=== PATIENT | female | born 1975 | race Caucasian/White ===

== ENCOUNTER → 2016-11-18 | Outpatient (CLI) | payer OTHER ==
[~2016-11-18] MED LIST: BACL10TA PO; CALC-20 PO; EFF75 PO; GABA800T PO; HYDR16TA PO; HYDR2TAB48 PO; LEVO25TA5 PO; LUBI8CAP4 PO; NALO1TAB2; PEDICHW50 PO; QUET1TAB37 PO; SENN8.6T7 PO; TRAZ50TA35 PO; ZNF/4 PO
--- NOTE | 2016-11-18 17:00 | DIAGNOSTIC IMAGING REPORT ---
SINGLE VIEW PELVIS; 3 VIEWS SACRUM AND SACROILIAC JOINTS CLINICAL HISTORY: Chronic pelvic pain. FINDINGS: An AP view of the pelvis with 3 views of the sacrum and sacroiliac joints are correlated with pelvic CT dated 01/13/2016. The skeletal structures are osteopenic. No acute fracture is identified. There is chronic posttraumatic deformity of the pubic ring bilaterally as well as the left sacrum. Degenerative change is noted in the sacroiliac joints, left greater than right. The hip joints appear maintained. The overlying soft tissues are within normal limits. There is a nonobstructed abdominal bowel gas pattern. There are numerous pelvic phlebolith. IMPRESSION: Chronic post traumatic deformity as above. No acute bony abnormality is seen. Electronically signed by: Milo Guillermo M.D. 11/18/2016 4:59 PM Dictated Date/Time: 11/18/2016 4:57 PM
--- NOTE | 2016-11-18 17:34 | DIAGNOSTIC IMAGING REPORT ---
CERVICAL SPINE 3 VIEWS CLINICAL HISTORY: Chronic neck pain. FINDINGS: AP, lateral, and odontoid views of the cervical spine are compared to study dated 06/27/[address] scan of the cervical spine dated 09/08/2015. The skeletal structures appear osteopenic. There is no radiographic evidence of fracture or subluxation. Vertebral body height and alignment are maintained throughout the cervical spine. Small anterior osteophytes are noted in the lower cervical region. The odontoid process and lateral masses appear intact on the open-mouth view. The spinolaminar line is preserved. The spinous processes are maintained. The disc spaces are preserved. A tiny posterior disc osteophyte complex is seen at C4-C5. Minimal facet arthropathy is noted. The visualized apical lung parenchyma appears clear. The prevertebral soft tissues are within normal limits. IMPRESSION: Minimal spondylotic change as above. No acute bony abnormality is identified involving the cervical spine. Dictated: 11/18/2016 4:55 PM Transcribed: 11/18/2016 5:33 PM Joaquim Electronically signed by: Milo Guillermo M.D. 11/18/2016 5:49 PM Dictated Date/Time: 11/18/2016 4:55 PM
--- NOTE | 2016-11-18 17:36 | DIAGNOSTIC IMAGING REPORT ---
LUMBAR SPINE 3 VIEWS CLINICAL HISTORY: Chronic low back pain. FINDINGS: AP, lateral, and coned-down views of the lumbar spine are compared to study dated 06/27/2011. The skeletal structures are osteopenic. There is no radiographic evidence of fracture or malalignment. Vertebral body height and alignment are maintained. There is straightening of the lumbar lordosis. The transverse and spinous processes appear intact. There is no evidence of spondylolysis. There is mild degenerative disc space narrowing with endplate sclerosis seen at L4-L5. Moderate degenerative disc space narrowing is seen at L4-L5. The remaining disc spaces appear preserved. Chronic posttraumatic deformity of the left sacrum is again seen. A hemitransitional left lumbosacral segment is suggested. An IVC filter is noted. Cholecystectomy clips are observed and there is suture material projecting over the stomach. No bowel obstruction is seen. There is moderate colonic fecal retention. IMPRESSION: 1. No acute bony abnormality seen involving the lumbosacral spine. There has been no significant change from 06/27/2011. 2. Osteopenia and mild degenerative change as above. 3. Chronic posttraumatic deformity is again noted in the left sacrum. Dictated: 11/18/2016 4:59 PM Transcribed: 11/18/2016 5:36 PM Joaquim Electronically signed by: Milo Guillermo M.D. 11/18/2016 5:49 PM Dictated Date/Time: 11/18/2016 4:59 PM
--- NOTE | 2016-11-18 19:00 | DIAGNOSTIC IMAGING REPORT ---
LEFT SHOULDER 3 VIEWS CLINICAL HISTORY: Chronic left shoulder pain. FINDINGS: 3 views of the left shoulder are obtained. No prior studies are available for comparison at the time of dictation. The skeletal structures are osteopenic. There is no radiographic evidence of fracture or dislocation. There is widening at the acromioclavicular joint with bony overgrowth. The glenohumeral articulation is preserved. The overlying soft tissues are within normal limits. There are healed left posterior rib fractures. The visualized left lung parenchyma appears clear. IMPRESSION: 1. No fracture or dislocation is seen. 2. There is widening at the clavicular joint with bony overgrowth. This could represent remote shoulder separation/trauma or could be related to previous surgery. Clinical correlation will be required. Electronically signed by: Milo Guillermo M.D. 11/18/2016 6:59 PM Dictated Date/Time: 11/18/2016 6:57 PM
--- NOTE | 2016-11-18 19:07 | DIAGNOSTIC IMAGING REPORT ---
THORACIC SPINE 3 VIEWS CLINICAL HISTORY: Chronic thoracic back pain. FINDINGS: AP, lateral, and swimmer's views of the thoracic spine are correlated with lateral chest radiograph dated 06/17/2015. The skeletal structures are osteopenic. There is no radiographic evidence of fracture or malalignment. Vertebral body height and alignment are maintained throughout the thoracic spine. Anterior osteophytes are seen throughout. There is mild multilevel degenerative disc space narrowing. The transverse processes and pedicles are grossly intact on the frontal view. Mild thoracic levocurvature is likely positional. There are healed rib fractures. The lung parenchyma is clear as imaged. Cholecystectomy clips and suture material are noted in the upper abdomen. IMPRESSION: 1. No acute bony abnormality is seen in the thoracic spine. 2. Osteopenia with degenerative and chronic posttraumatic changes as above. Electronically signed by: Milo Guillermo M.D. 11/18/2016 7:06 PM Dictated Date/Time: 11/18/2016 7:04 PM
== END | disposition home or self-care (01) ==
LOC: C.RAD 15:58
PROVIDERS: ATTEND Nurse Practitioner Family
DX: M25.512 Pain in left shoulder (principal); G89.4 Chronic pain syndrome; M54.2 Cervicalgia; M54.6 Pain in thoracic spine; M54.5 Low back pain

== ENCOUNTER → 2017-10-06 | Outpatient (CLI) | payer OTHER ==
[~2017-10-06] MED LIST changes: -NALO1TAB2; -ZNF/4 PO
--- NOTE | 2017-10-06 10:21 | DIAGNOSTIC IMAGING REPORT ---
LUMBAR SPINE W/O CONTRAST HISTORY: Pain. Neuropathy. LOWER BACK PAIN TECHNIQUE: Multiplanar multisequence MRI of the lumbar spine was performed without the use of contrast. COMPARISON: 05/02/2015 FINDINGS: For the purpose of the report the L5-S1 disc space will be located on axial image 23 of 25. Moderately progressive degenerative disc change L4-L5. L1-L2: No significant central canal or neural foraminal narrowing. L2-L3: No significant central canal or neural foraminal narrowing. L3-L4: No significant central canal or neural foraminal narrowing. L4-L5: Left posterior disc herniation creating significant deformity left anterior aspect of the thecal sac. Significant narrowing of the origin of the left neural foramina. Right neuroforamina is patent. Dimensions of the posterior disc herniation are 12 x 9 mm. L5-S1: No significant central canal or neural foraminal narrowing. IMPRESSION: 1. Left posterior disc herniation L4-L5 creating significant deformity of the left anterior aspect of the thecal sac and narrowing left neural foramina. 2. These findings are progressive compared to the prior exam. 3. Remainder of the study is negative. The above report was generated using voice recognition software. It may contain grammatical, syntax or spelling errors. Electronically signed by: Desean Carl M.D. 10/06/2017 10:20 AM Dictated Date/Time: 10/06/2017 10:15 AM
== END | disposition home or self-care (01) ==
LOC: C.MRI 09:31
PROVIDERS: ATTEND Pediatrics Sports Medicine
DX: M54.16 Radiculopathy, lumbar region (principal)

== ENCOUNTER → 2018-03-31 | Outpatient (CLI) | payer OTHER, BC ==
--- NOTE | 2018-03-31 14:00 | DIAGNOSTIC IMAGING REPORT ---
HEAD WITHOUT CONTRAST (CT) CLINICAL HISTORY: 42 years-old Female with L SHOULDER PAIN,IMPINGEMENT SYNDROME. Acute seizure with history of remote brain trauma TECHNIQUE: Multiple axial CT images of the head were obtained without contrast. A dose lowering technique was utilized adhering to the principles of ALARA. CT DOSE: 537.48 mGy.cm COMPARISON: Brain MRI and CT head 09/08/2015. FINDINGS: No acute intracranial hemorrhage, midline shift, intracranial mass, hydrocephalus, territorial ischemia or abnormal extra-axial collection. The calvarium is intact. Trace right mastoid effusion. Left mastoid air cells are clear. Paranasal sinuses are also generally clear. The soft tissues and orbits are unremarkable. IMPRESSION: No acute intracranial abnormality. The above report was generated using voice recognition software. It may contain grammatical, syntax or spelling errors. Electronically signed by: Gerard Young M.D. 03/31/2018 1:59 PM Dictated Date/Time: 03/31/2018 1:55 PM
== END | disposition home or self-care (01) ==
LOC: C.CTS 13:16
PROVIDERS: ATTEND Family Medicine
DX: R56.9 Unspecified convulsions (principal); M25.512 Pain in left shoulder; M75.42 Impingement syndrome of left shoulder

== ENCOUNTER 2020-01-29 01:38 | Inpatient (IN) ==
[2020-01-29] MEDS ORDERED: GI COCKTAIL ED USE PO ONE (02:02)
[2020-01-29] MEDS ORDERED: ONDANSETRON INJ 2 MG/ML 2 ML VIAL IV STA ×2 (02:02→03:36)
[2020-01-29] MEDS ORDERED: SODIUM CHLORIDE 0.9% 1000ML 1,000 ML IV ONE (02:02)
--- NOTE | 2020-01-29 02:08 | Emergency Department Note ---
Impression & Plan Partial obstruction of small intestine, Acute dehydration, Intractable vomiting ED Provider Note Name: GULSHAN YARBROUGH Age: 44 Sex: F Arrives Via: Walk-In Informant: Patient ED Provider: Cam Mobley MD Chief Complaint: Vomiting Impression: Partial Obstruction of Small intestine Acute Dehydration Intractable vomiting Medical Decision Makin yr old female with history of chronic pain issues along with previous gastric bypass almost 10 yrs ago arrives with persistent nausea/vomiting over the last week that initially was improving but has worsened over the last day. She is dehydrated on arrival though does not appear septic and abdomen is soft, non- tender and normal bowel sounds currently. Given Zofran without improvement, then phenergan and still nausea, thus further Zofran and Ativan. CT done given persistent vomiting and mildly elevated WBC (though likely dehydration related). CT revealed partial small bowel obstruction past previous anastamosis. She does not have a significantly dilated gastric pouch and I think holding off NG tube reasonable at this time. There could be element esophagitis thus tried GI cocktail though she couldn't really keep that down. Hospitalist on board and they will consult with gen surg later this morning. Prior Medical Record and Triage/Nursing Notes reviewed by Me Additional history obtained from chart Differentials:Gastroenteritis, food borne illness, infections, appendicitis, diverticulitis, inflammatory bowel disease, obstruction, GI bleed, biliary pa thology, volvulus, as well as other pathologies. Vital Signs: reviewed and remarkable for tachy Interventions: saline lock, nss bolus/gtt, zofran 4mg IV x 2, phenergan 25mg IV, Ativan 1mg IV Labs:Reviewed and remarkable for mild wbc elevation, chronic plt elevation Imaging:[facility] Radiologist interpretation reviewed by me: Concerning for partial SBO proximal small bowel. Consults:Dr Yusuf HERNANDEZ Hospitalist Plan: Disposition:Hospitalization. Condition: Good Blood pressure:Normal.No Referral necessary Prescriptions:none PDMP: n/a History of Present Illness:44 / F arrives for evaluation of vomiting. Patient vomiting for the previous week after eating fast food. She was starting to feel better yesterday and started vomiting again after dinner. Notes food is very salty to taste and she vomits any time she eats. Notes vague abdominal cramping without pain. Normal BM today. No fevers, chills, sob, cp, syncope, nor other symptoms. Denies covid risks other than going to [employer] for groceries. Tried Pepto without improvement. Denies syncope. States she recently has had some issues with trying to urinate and sometimes has to push to urinate, though denies urinary frequency nor burning. ROS: See above HPI for pertinent positives & negatives. A total of 10 systems reviewed and were otherwise negative. Past Medical History:Chronic Pain, Migraines, Depression Past Surgical History:Gastric Bypass Family History:non-contributory Social History:On disability, occasional tobacco use, no alcohol, no drugs Home Medications:See Below Allergies:Oxycodone, Morphine Vitals:Blood Pressure: 133/90, Pulse 110, RR 20, T 37C, O2 97% on RA Physical Exam: GENERAL: Patient is dehydration appearing and in mild distress. EYES: No scleral icterus, unremarkable pupils. ENT: Mucous membranes dry, no nasal congestion. NECK: No masses appreciated, nomeningismus, trachea is midline. RESPIRATORY: No dyspnea. Clear to auscultation and equal bilaterally. No wheeze, no rhonchi. CARDIOVASCULAR: Tachy.No murmurs, rubs, gallops appreciated. GASTROINTESTINAL: Abdomen soft, non-tender, no peritonitis.Bowel sounds positive.No masses appreciated. BACK: No midline tenderness, no CVA tenderness EXTREMITIES: Normal motion all extremities, no cyanosis, no edema. NEUROLOGIC: Alert and oriented, no acute motor or sensory deficits, no focal weakness, cranial nerves grossly intact. SKIN: No rash, no jaundice, no diaphoresis. PSYCH: Appropriate GCS: 15 ED Course: Times/Reassessments: gradually improving nausea Cam Mobley MD Past Med/Surg History Social History Feels Safe at Home: Yes Smoking Status: Current some day smoker Allergies Allergies Allergy/AdvReac Type Severity Reaction Status Date / Time oxycodone Allergy Intermediate HIVES Verified 01/29/20 03:08 Morphine Sulfate Allergy Unknown ITCHING Uncoded 01/29/20 03:08 (Concentrate) OxyCONTIN TB12 AdvReac Hypotension Uncoded 01/29/20 03:08 Home Meds Home Medications Medication Instructions Recorded Confirmed baclofen 20 mg tablet 20 mg PO TID #30 tab 04/05/19 01/29/20 gabapentin 800 mg tablet 800 mg PO QID tab 04/05/19 01/29/20 hydromorphone 2 mg tablet 1 mg PO Q8H PRN tab 04/05/19 01/29/20 lubiprostone 24 mcg capsule 48 mcg PO DAILY cap 04/05/19 01/29/20 multivitamin 1 tab PO DAILY 04/05/19 01/29/20 quetiapine 300 mg tablet 300 mg PO DAILY tab 04/05/19 01/29/20 cholecalciferol (vitamin D3) 2,000 mcg PO DAILY 01/29/20 01/29/20 [Vitamin D3] nortriptyline 50 mg PO BID 01/29/20 01/29/20 nortriptyline 100 mg PO HS 01/29/20 01/29/20 oxymorphone 7.5 mg PO Q8 01/29/20 01/29/20 Previous Rx's Medication Instructions Recorded lamotrigine 150 mg tablet 150 mg PO BID 30 Days #60 tab 10/23/19 sumatriptan succinate 100 mg tablet See Rx Instructions PO .COMPLEX #9 10/23/19 tab Results & Data (ED) Vital Signs Vital Signs - 24 hr 01/29/20 01:42 01/29/20 02:19 01/29/20 02:21 Temperature 37 C Temperature Source Oral Pulse Rate 110 H 81 81 Pulse Rate [Bilateral Apical] Pulse Rate from SpO2 Sensor 82 78 Respiratory Rate 20 19 15 Blood Pressure 133/90 143/79 H Blood Pressure [Left Arm] Blood Pressure Mean 104 87 Blood Pressure Mean [Left Arm] Blood Pressure Position Sitting Pulse Oximetry 97 98 99 Oxygen Delivery Method Room Air Sepsis Recent Fever Within 48 Hours No Sepsis Action Taken by Nursing No Action Required 01/29/20 03:29 01/29/20 04:04 Temperature Temperature Source Pulse Rate Pulse Rate [Bilateral Apical] 84 93 H Pulse Rate from SpO2 Sensor Respiratory Rate 18 18 Blood Pressure Blood Pressure [Left Arm] 132/78 152/90 H Blood Pressure Mean Blood Pressure Mean [Left Arm] 96 110 Blood Pressure Position Pulse Oximetry 99 98 Oxygen Delivery Method Room Air Room Air Sepsis Recent Fever Within 48 Hours Sepsis Action Taken by Nursing Laboratory Data Result diagrams: 01/29/20 01:55 01/29/20 01:55 Lab Results 01/29/20 01/29/20 Range/Units 01:55 01:55 WBC 13.44 H (4.8-10.8) K/uL RBC 5.53 H (4.2-5.4) M/uL Hgb 13.0 (12.0-16.0) g/dL Hct 41.1 (37-47) % MCV 74.3 L (80-100) fL MCH 23.5 L (25-34) pg MCHC 31.6 L (32-36) g/dL RDW Std Deviation 48.5 H (36.4-46.3) fL RDW Coeff of Jeffrey 17.8 H (11.5-14.5) % Plt Count 665 H (130-400) K/uL MPV 9.9 (7.4-10.4) fL Immature Gran % (Auto) 0.3 % Neut % (Auto) 60.1 % Lymph % (Auto) 29.5 % [place] % (Auto) 7.8 % Eos % (Auto) 1.9 % Baso % (Auto) 0.4 % Immature Gran # (Auto) 0.04 H (0.00-0.02) K/uL Neut # (Auto) 8.07 H (1.4-6.5) K/uL Lymph # (Auto) 3.96 H (1.2-3.4) K/uL [place] # (Auto) 1.05 H (0.11-0.59) K/uL Eos # (Auto) 0.26 (0-0.5) K/uL Baso # (Auto) 0.06 (0-0.2) K/uL Sodium 142 (136-145) mmol/L Potassium 3.4 L (3.5-5.1) mmol/L Chloride 106 (98-107) mmol/L Carbon Dioxide 30 (21-32) mmol/L Anion Gap 6.0 (3-11) BUN 11 (7-18) mg/dl Creatinine 0.91 (0.6-1.2) mg/dl Est Cr Clr Drug Dosing 79.9 ml/min Est GFR ( Amer) 89.6 Est GFR (Non-Af Amer) 77.3 BUN/Creatinine Ratio 12.3 (10-20) Glucose 132 H (70-99) mg/dl Calcium 9.2 (8.5-10.1) mg/dl Total Bilirubin 0.4 (0.2-1) mg/dl Direct Bilirubin 0.1 (0-0.2) mg/dl AST 17 (15-37) U/L ALT 29 (12-78) U/L Alkaline Phosphatase 115 (45-117) U/L Total Protein 8.2 (6.4-8.2) gm/dl Albumin 4.2 (3.4-5.0) gm/dl Lipase 104 (73-393) U/L Administered Medications Sodium Chloride (Nss 1000ml) 1,000 mls @ 125 mls/hr IV .Q8H CAESAR Stop: 02/28/20 03:59 Last Admin: 01/29/20 03:54 Dose: 125 mls/hr Documented by: [id number] Ioversol (Optiray 320 100ml) 100 ml IV ONCE PRN PRN Reason: Interaction Checking Stop: 02/02/20 03:19 Last Admin: 01/29/20 03:21 Dose: 93 ml Documented by: [id number] Discontinued Medications Al Hydrox/Mg Hydrox/Simethicone () 1 dose PO ONE ONE Stop: 01/29/20 02:03 Last Admin: 01/29/20 02:09 Dose: 1 dose Documented by: [id number] Sodium Chloride (Nss 1000ml) 1,000 mls @ 999 mls/hr IV .Q1H1M ONE Stop: 01/29/20 03:02 Last Infusion: 01/29/20 03:17 Dose: 0 mls/hr Documented by: [id number] Admin: 01/29/20 02:08 Dose: 999 mls/hr Documented by: [id number] Promethazine HCl (Phenergan) 25 mg in 51 mls @ 204 mls/hr IV NOW STA Stop: 01/29/20 03:02 Last Infusion: 01/29/20 03:17 Dose: 0 mls/hr Documented by: [id number] Admin: 01/29/20 02:57 Dose: 204 mls/hr Documented by: [id number] Lorazepam (Ativan) 1 mg in 2 mls @ 2 mls/min IV NOW STA Stop: 01/29/20 03:37 Last Admin: 01/29/20 03:42 Dose: 2 mls/min Documented by: [id number] Ondansetron HCl (Zofran) 4 mg IV NOW STA Stop: 01/29/20 02:03 Last Admin: 01/29/20 02:08 Dose: 4 mg Documented by: [id number] Ondansetron HCl (Zofran) 4 mg IV NOW STA Stop: 01/29/20 03:37 Last Admin: 01/29/20 03:42 Dose: 4 mg Documented by: [id number] Discharge Plan Visit Data Chief Complaint: Vomiting Stated Complaint: SICK, VOMITTING, HAVEN'T ATE ED Provider: Cam Mobley Discharge Problem: Partial obstruction of small intestine, Acute dehydration, Intractable vomiting Forms Stand Alone Forms: [facility] Prescriptions Prescriptions: No Action Amitiza 24 mcg capsule 48 mcg PO DAILY RF: 0 baclofen 20 mg tablet 20 mg PO TID Qty: 30 RF: 0 gabapentin 800 mg tablet 800 mg PO QID RF: 0 hydromorphone 2 mg tablet 1 mg PO Q8H PRN (Reason: Pain) RF: 0 quetiapine 300 mg tablet 300 mg PO DAILY RF: 0 multivitamin [Multiple Vitamins] tablet 1 tab PO DAILY RF: 0 lamotrigine 150 mg tablet 150 mg PO BID 30 Days Qty: 60 RF: 5 sumatriptan succinate 100 mg tablet See Rx Instructions PO .COMPLEX Qty: 9 RF: 5 cholecalciferol (vitamin D3) [Vitamin D3] 50 mcg (2,000 unit) tablet 2,000 mcg PO DAILY RF: 0 nortriptyline 25 mg capsule 100 mg PO HS RF: 0 nortriptyline 25 mg capsule 50 mg PO BID RF: 0 oxymorphone 5 mg tablet 7.5 mg PO Q8 RF: 0 Referrals Referrals: Kirk Santiago [Primary Care Provider] - Discharge Problem: Intractable vomiting Qualifiers: Vomiting type: unspecified Nausea presence: with nausea Qualified Code(s): R11.2 - Nausea with vomiting, unspecified
[2020-01-29 02:15] LABS: Basophils # (auto) 0.06 K/uL (0-0.2); Basophils % (auto) 0.4 %; Eosinophils # (auto) 0.26 K/uL (0-0.5); Eosinophils % (auto) 1.9 %; Hematocrit (blood only) 41.1 % (37-47); Immature Granulocytes # (auto) 0.04 K/uL (0.00-0.02); Immature Granulocytes % (auto) 0.3 %; Lymphocytes # (auto) 3.96 K/uL (1.2-3.4); Lymphocytes % (auto) 29.5 %; Mean Corpuscular Hemoglobin 23.5 pg (25-34); Mean Corpuscular Hgb Conc 31.6 g/dL (32-36); Mean Corpuscular Volume 74.3 fL (80-100); Mean Platelet Volume 9.9 fL (7.4-10.4); Monocytes # (auto) 1.05 K/uL (0.11-0.59); Monocytes % (auto) 7.8 %; Neutrophils # (auto) 8.07 K/uL (1.4-6.5); Neutrophils % (auto) 60.1 %; Platelet Count 665 K/uL (130-400); RDW Coefficient of Variation 17.8 % (11.5-14.5); RDW Standard Deviation 48.5 fL (36.4-46.3); Red Blood Count 5.53 M/uL (4.2-5.4); White Blood Count 13.44 K/uL (4.8-10.8)
[2020-01-29 02:24] LABS: Albumin Level 4.2 gm/dl (3.4-5.0); BUN Creatinine Ratio 12.3 (10-20); Bilirubin Direct 0.1 mg/dl (0-0.2); Calcium 9.2 mg/dl (8.5-10.1); Creatinine Clr Calc Pharmacy 79.9 ml/min; Est GFR (African American) 89.6; Est GFR (Non-African American) 77.3; Potassium 3.4 mmol/L (3.5-5.1)
[2020-01-29 02:27] LABS: Bilirubin,Total 0.4 mg/dl (0.2-1); Total Protein 8.2 gm/dl (6.4-8.2)
[2020-01-29] MEDS ORDERED: PROMETHAZINE 25 MG/51 ML BAG IV STA (02:48)
[2020-01-29] MEDS ORDERED: IOVERSOL 100ml IV PRN (03:20)
[2020-01-29] MEDS ORDERED: LORazepam 1 MG/2 ML VIAL IV STA (03:36)
[2020-01-29] MEDS ORDERED: SODIUM CHLORIDE 0.9% 1000ML 1,000 ML IV SCH (04:00)
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
[2020-01-29] MEDS ORDERED: FAMOTIDINE 20MG/5ML IV PUSH IV STA (05:53)
[2020-01-29] MEDS ORDERED: HYDROmorphone INJ 0.5 MG/0.5 ML SYR IV PRN (05:53)
[2020-01-29] MEDS ORDERED: FAMOTIDINE 20 MG in SYRINGE 3 ML IV STA (06:01)
[2020-01-29] MEDS: POTASSIUM CHLORIDE / WTR 10 MEQ/100 ML PLCT IV SCH ×3 (06:18→08:58)
[2020-01-29] MEDS ORDERED: POTASSIUM CHLORIDE 30 MEQ in SODIUM CHLORIDE 0.9% 1000ML 1,000 ML IV SCH (06:30)
--- NOTE | 2020-01-29 07:05 | Billing Data ---
Date of Service January 29, 2020 Coding Level of Care Code 67404 OBS Care - Level 3
--- NOTE | 2020-01-29 07:18 | XRay Report ---
XR KUB/Abdomen 1 view CLINICAL HISTORY: NG placement tube position COMPARISON STUDY: No previous studies for comparison. FINDINGS: Nasogastric tube coiled within the gastric fundus. Nonobstructive bowel pattern. Inferior v gita cava filter is present. IMPRESSION: Nasogastric tube coiled within the gastric fundus. ACT 112: Negative or not required by law. The above report was generated using voice recognition software. It may contain grammatical, syntax or spelling errors. Electronically signed by: Desean Carl M.D. 01/29/2020 7:16 AM
--- NOTE | 2020-01-29 07:35 | CT Scan Report ---
CT SCAN OF THE ABDOMEN AND PELVIS WITH IV CONTRAST CLINICAL HISTORY: Intractable vomiting. Leukocytosis. COMPARISON STUDY: Abdominal CT dated 06/19/2019. TECHNIQUE: Following the IV administration of 93 cc of Optiray 320, CT scan of the abdomen and pelvi s is performed from the lung bases to the proximal femora. Images are reviewed in the axial, sagittal , and coronal planes. IV contrast was administered without complication. A dose lowering technique wa s utilized adhering to the principles of ALARA. CT DOSE: 528.79 mGy.cm FINDINGS: Lung bases: The heart is normal in size and without pericardial effusion. Trace chronic pleural effus ion is noted at the left lung with associated left basilar scarring/atelectasis. The right lung base is clear. Liver: The contrast-enhanced liver is normal in size, contour, and attenuation. There is no intrahepa tic biliary ductal dilatation. The hepatic veins and portal veins are patent. Gallbladder: Surgically absent noting clips in the gallbladder fossa. Spleen: A normal spleen is not identified. Numerous round soft tissue nodules in the left upper quadr ant likely represent splenules. Pancreas: Moderately atrophic and grossly unremarkable. Adrenal glands: Unremarkable. Kidneys: The contrast enhanced kidneys are normal in size and without hydronephrosis. The kidneys enh ance symmetrically. A circumaortic left renal vein is incidentally noted. Abdominal vasculature: The abdominal aorta is normal in course and caliber. An infrarenal IVC filter is in place. Stomach and bowel: There is a small hiatal hernia. Postoperative changes consistent with a history of Loreta-en-Y gastric bypass surgery. There is significant distention of the proximal stomach above the gastrojejunostomy. This suggests gastric outlet obstruction. The pancreatic biliary loop is decompres sed/normal in caliber. Mild focal distention at the level of the distal anastomosis is likely related to denervation. The small bowel loops and colon are otherwise normal in caliber. The appendix is wel l-visualized and normal. Peritoneum: There is no intraperitoneal free air or abdominal ascites. There is evidence of previous ventral hernia repair, with laxity of the ventral abdominal wall and protrusion of abdominal contents . Lymphadenopathy: None. Pelvic viscera: A neurostimulator device is present in the right gluteal soft tissues. Leads extend i n the central spinal canal into the thoracic region. The bladder is decompressed and grossly unremark able. The uterus and adnexa are normal as visualized noting bilateral ovarian follicles. Skeletal structures: No lytic or blastic lesions are seen. There are numerous healed left-sided rib f ractures. There are extensive healed bilateral pelvic fractures with associated pelvic deformity. IMPRESSION: 1. Postoperative change is consistent with a history of Loreta-en-Y gastric bypass surgery. 2. There is significant distention of the proximal gastric pouch above the gastrojejunostomy. This gonzales ggests gastric outlet obstruction, and could be related to obstructing food bolus or less likely stri cture. This represents a change from previous and follow-up of the patient's bariatric surgeon is rec ommended. 3. The bowel loops are otherwise normal in caliber. 4. Chronic posttraumatic findings as above. 5. Laxity of the ventral abdominal wall with protrusion of bowel loops is similar to previous. 6. Additional findings as above. ACT 112: Negative or not required by law. Electronically signed by: Milo Guillermo M.D. 01/29/2020 7:34 AM
[2020-01-29] MEDS: LUBIPROSTONE 8 MCG CAP PO SCH (08:12)
[2020-01-29] MEDS: BACLOFEN 20 MG TAB PO SCH ×3 (08:12→21:47)
[2020-01-29] MEDS: GABAPENTIN 800 MG TAB PO SCH ×4 (08:13→21:47)
[2020-01-29] MEDS: NORTRIPTYLINE HCL 25 MG CAP PO SCH ×3 (08:13→21:47)
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
[2020-01-29] MEDS: HEPARIN SOD 5,000 UNIT/0.5 ML VIAL SQ SCH ×2 (08:59→21:17)
[2020-01-29] MEDS ORDERED: QUETIAPINE FUMARATE 300 MG TABLET PO SCH (09:00)
[2020-01-29] MEDS: FAMOTIDINE 20 MG in SYRINGE 3 ML IV SCH ×2 (09:06→21:12)
[2020-01-29 10:06] LABS: Hematocrit (blood only) 35.1 % (37-47); Hemoglobin 11.2 g/dL (12.0-16.0); Mean Corpuscular Hemoglobin 24.1 pg (25-34); Mean Corpuscular Hgb Conc 31.9 g/dL (32-36); Mean Corpuscular Volume 75.5 fL (80-100); Mean Platelet Volume 9.6 fL (7.4-10.4); Platelet Count 556 K/uL (130-400); RDW Coefficient of Variation 18.1 % (11.5-14.5); RDW Standard Deviation 49.8 fL (36.4-46.3); Red Blood Count 4.65 M/uL (4.2-5.4); White Blood Count 13.52 K/uL (4.8-10.8)
[2020-01-29] MEDS: HYDROmorphone INJ 1 MG/ML SYRINGE IV PRN ×3 (10:41→19:19)
[2020-01-29 10:43] LABS: Basophils # (auto) 0.11 K/uL (0-0.2); Basophils % (auto) 0.8 %; Eosinophils # (auto) 0.22 K/uL (0-0.5); Eosinophils % (auto) 1.6 %; Immature Granulocytes # (auto) 0.03 K/uL (0.00-0.02); Immature Granulocytes % (auto) 0.2 %; Lymphocytes # (auto) 5.14 K/uL (1.2-3.4); Microcytosis Present; Monocytes # (auto) 1.12 K/uL (0.11-0.59); Monocytes % (auto) 8.3 %; Neutrophils % (auto) 51.1 %; Ovalocytes 1+; Target Cells 1+
[2020-01-29 10:47] LABS: BUN Creatinine Ratio 14.6 (10-20); Calcium 8.8 mg/dl (8.5-10.1); Creatinine Clr Calc Pharmacy 96.8 ml/min; Est GFR (African American) 109.6; Est GFR (Non-African American) 94.6; Potassium 4.5 mmol/L (3.5-5.1)
[2020-01-29 11:56] LABS: Appearance Urine Clear (Clear); Bilirubin Urine Negative (Negative); Blood Urine Negative (Negative); Color Urine Yellow; Glucose Urine UA Negative (Negative); Ketones Urine 1+ (Negative); Leukocyte Esterase Urine Negative (Negative); Nitrite Urine Negative (Negative); Protein Urine Negative (Negative); Specific Gravity Urine > 1.045 (1.000-1.030); Urobilinogen Urine Negative (Negative); pH Urine >= 9.0 (4.5-7.5)
[2020-01-29 12:03] LABS: Pregnancy Test, Urine Negative (Negative)
[2020-01-29] MEDS: ONDANSETRON INJ 2 MG/ML 2 ML VIAL IV PRN ×2 (13:10→21:12)
[2020-01-29] MEDS: PROCHLORPERAZINE 5 MG in SYRINGE 4 ML IV PRN (14:44)
[2020-01-29] MEDS ORDERED: POTASSIUM CHLORIDE 20 MEQ in SODIUM CHLORIDE 0.9% 1000ML 1,000 ML IV SCH (16:30)
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
[2020-01-29] MEDS: NSS + 20MEQ KCL 20 MEQ/1,000 ML BAG IV SCH (17:02)
[2020-01-29 18:17] LABS: Gastric Occult Blood Negative (Negative)
[2020-01-29] MEDS ORDERED: Nursing to Pharmacy Communication ONE (19:30)
[2020-01-29] MEDS: QUETIAPINE FUMARATE 300 MG TABLET PO SCH (21:47)
[2020-01-30] MEDS: HYDROmorphone INJ 1 MG/ML SYRINGE IV PRN ×5 (00:08→19:53)
[2020-01-30] MEDS: NSS + 20MEQ KCL 20 MEQ/1,000 ML BAG IV SCH ×3 (02:52→23:30)
[2020-01-30 06:54] LABS: Basophils # (auto) 0.06 K/uL (0-0.2); Basophils % (auto) 0.4 %; Eosinophils # (auto) 0.26 K/uL (0-0.5); Eosinophils % (auto) 1.9 %; Hemoglobin 10.2 g/dL (12.0-16.0); Immature Granulocytes # (auto) 0.02 K/uL (0.00-0.02); Immature Granulocytes % (auto) 0.1 %; Lymphocytes # (auto) 4.03 K/uL (1.2-3.4); Lymphocytes % (auto) 30.2 %; Mean Corpuscular Hemoglobin 23.4 pg (25-34); Mean Corpuscular Hgb Conc 30.9 g/dL (32-36); Mean Corpuscular Volume 75.9 fL (80-100); Mean Platelet Volume 9.6 fL (7.4-10.4); Monocytes # (auto) 1.11 K/uL (0.11-0.59); Monocytes % (auto) 8.3 %; Neutrophils # (auto) 7.88 K/uL (1.4-6.5); Neutrophils % (auto) 59.1 %; Platelet Count 518 K/uL (130-400); RDW Standard Deviation 50.7 fL (36.4-46.3); Red Blood Count 4.35 M/uL (4.2-5.4); White Blood Count 13.36 K/uL (4.8-10.8)
[2020-01-30 07:29] LABS: BUN Creatinine Ratio 14.9 (10-20); Calcium 8.1 mg/dl (8.5-10.1); Creatinine Clr Calc Pharmacy 138.1 ml/min; Est GFR (Non-African American) 115.6; Potassium 4.1 mmol/L (3.5-5.1)
[2020-01-30 07:34] LABS: Ferritin 7.2 ng/ml (8-388)
[2020-01-30] MEDS ORDERED: KETOROLAC TROMETHAMINE 15 MG/ML VIAL IV PRN (08:13)
[2020-01-30 08:27] LABS: Albumin Level 3.1 gm/dl (3.4-5.0); Bilirubin Direct 0.1 mg/dl (0-0.2); Bilirubin,Total 0.5 mg/dl (0.2-1); Total Protein 6.2 gm/dl (6.4-8.2)
[2020-01-30] MEDS: HEPARIN SOD 5,000 UNIT/0.5 ML VIAL SQ SCH ×2 (08:50→22:05)
[2020-01-30] MEDS ORDERED: COUGH DROP (SUGAR FREE) LOZ 24 LOZ/1 BOX BUCCAL PRN (08:59)
[2020-01-30] MEDS: BACLOFEN 20 MG TAB PO SCH ×3 (09:01→21:57)
[2020-01-30] MEDS: GABAPENTIN 800 MG TAB PO SCH ×4 (09:01→21:57)
[2020-01-30] MEDS: NORTRIPTYLINE HCL 25 MG CAP PO SCH ×3 (09:01→21:57)
[2020-01-30] MEDS: LUBIPROSTONE 8 MCG CAP PO SCH (09:01)
--- NOTE | 2020-01-30 09:06 | History & Physical Bridge Note ---
Date of Service January 30, 2020 History & Physical Bridge Note I have examined the patient, reviewed the History & Physical and in the interval since the performance of the History & Physical I have noted the following changes of clinical significance: no changes noted
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
[2020-01-30] MEDS ORDERED: fentaNYL citrate 100 MCG/2 ML VIAL ONE (09:46)
[2020-01-30] MEDS ORDERED: MIDAZOLAM HCL 1 MG/ML 2ML VIAL ONE (09:46)
[2020-01-30] MEDS ORDERED: LIDOCAINE HCL 2% 2 ML VIAL/AMP(20MG/ML) INFIL ONE (09:46)
[2020-01-30] MEDS ORDERED: PROPOFOL IV EMULSION 10 MG/ML 20 ML VIAL IV ONE (09:46)
[2020-01-30] MEDS: FAMOTIDINE 20 MG in SYRINGE 3 ML IV SCH ×2 (10:07→21:58)
[2020-01-30] MEDS ORDERED: LABETALOL HCL IV 5 MG/ML 20ML IV PRN (10:32)
[2020-01-30] MEDS ORDERED: ONDANSETRON INJ 2 MG/ML 2 ML VIAL IV PRN (10:32)
[2020-01-30] MEDS ORDERED: fentaNYL citrate 100 MCG/2 ML VIAL IV PRN (10:32)
[2020-01-30] MEDS ORDERED: ATROPINE SULFATE 0.1 MG/ML 10ML SYR IV PRN (10:32)
--- NOTE | 2020-01-30 10:54 | Operative Report ---
PG Post Operative Report Pre & Post Diagnosis Operation Date: 01/30/20 08:20 Pre-Op Diagnosis: Gastric Stricture Post-Op Diagnosis: Esophageal Candidiasis I identified the patient and participated in the time-out.: Yes Procedure Operation Date: 01/30/20 08:20 Actual Procedures p Esophagogastroduodenoscopy(Not Applicable) with esophageal brushings- Mauro Downing DO Surgeon Mauro Downing DO Continuous Drier Operator n/a Estimated Blood Loss 0 Findings Consistent with Post-Op Diagnosis Specimens esophageal brushings Description of Procedure After informed consent was obtained the patient was taken to the operating room and placed in a left lateral Fowlers position. After IV sedation was administered and titrated to effect a bite-block was placed. The gastroscope was inserted in the oropharynx and into the proximal esophagus without difficulty. Keeping the lumen in view at all times the scope was passed down the esophagus. It was passed into the patient's gastric pouch and through her gastrojejunal anastomosis without difficulty. The anastomosis itself was pristine with no ulcer or stricture. The [place] limb was normal as well at least for the first 20-25 cm. Through the majority of the esophagus and proximal stomach there was florid leukoplakia consistent with esophageal candidiasis. I suspect this to be the source of her symptoms. Brushings were obtained and sent to pathology. She will be placed on antifungals empirically until we get the results back. No other gross abnormalities were identified. Gastric pouch was decompressed and scope was withdrawn. Patient tolerated the procedure well. I attest to the content of the Intraoperative Record and any orders documented therein. Any exceptions are noted below.
--- NOTE | 2020-01-30 12:22 | Anesthesiology Progress Note ---
Date of Service January 30, 2020 Anesthesia Post Procedure Vital Signs Vital Signs: Temp Pulse Pulse Pulse Resp BP Pulse Ox 01/30/20 12:00 37.1 C 90 16 128/86 95 01/30/20 11:30 37.2 C 97 H 17 118/75 94 01/30/20 11:10 36.8 C 99 H 14 118/81 92 01/30/20 11:00 99 H 15 123/74 93 01/30/20 10:54 37.0 C 100 H 18 121/77 99 01/30/20 10:22 37.3 C 100 H 18 149/83 H 95 01/30/20 07:01 36.9 C 98 H 16 136/77 93 01/29/20 23:37 37.0 C 95 H 16 136/82 94 01/29/20 15:14 37.2 C 99 H 17 125/79 92 Pain Intensity Abdomen: Pain Intensity: 5 Left Back: Pain Intensity: 7 Transfer of Care Handoff Completed per policy Notes Mental Status: alert / awake / arousable Patient Amnestic to Procedure: Yes Nausea / Vomiting: adequately controlled Pain: adequately controlled Airway Patency, RR, SpO2: stable & adequate BP & HR: stable & adequate Hydration State: stable & adequate Anesthetic Complications: no major complications apparent
[2020-01-30] MEDS ORDERED: FLUCONAZOLE 200 MG/100 ML BAG IV ONE (12:30)
[2020-01-30] MEDS ORDERED: IRON SUCROSE 200 MG in 0.9 % SODIUM CHLORIDE 100 ML IV ONE (14:30)
[2020-01-30] MEDS: NYSTATIN SUSP 500,000 U/5 ML UDC PO SCH ×3 (15:28→21:55)
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
[2020-01-30] MEDS: ONDANSETRON INJ 2 MG/ML 2 ML VIAL IV PRN (19:53)
[2020-01-30] MEDS: QUETIAPINE FUMARATE 300 MG TABLET PO SCH (21:57)
[2020-01-31] MEDS: HYDROmorphone INJ 1 MG/ML SYRINGE IV PRN ×2 (03:14→07:24)
[2020-01-31 05:54] LABS: Basophils # (auto) 0.05 K/uL (0-0.2); Basophils % (auto) 0.6 %; Eosinophils # (auto) 0.48 K/uL (0-0.5); Eosinophils % (auto) 5.3 %; Hematocrit (blood only) 30.2 % (37-47); Hemoglobin 9.4 g/dL (12.0-16.0); Immature Granulocytes # (auto) 0.02 K/uL (0.00-0.02); Immature Granulocytes % (auto) 0.2 %; Lymphocytes # (auto) 3.06 K/uL (1.2-3.4); Mean Corpuscular Hemoglobin 23.6 pg (25-34); Mean Corpuscular Hgb Conc 31.1 g/dL (32-36); Mean Corpuscular Volume 75.7 fL (80-100); Mean Platelet Volume 10.2 fL (7.4-10.4); Monocytes # (auto) 0.66 K/uL (0.11-0.59); Monocytes % (auto) 7.3 %; Neutrophils # (auto) 4.72 K/uL (1.4-6.5); Neutrophils % (auto) 52.6 %; Platelet Count 479 K/uL (130-400); RDW Coefficient of Variation 17.9 % (11.5-14.5); RDW Standard Deviation 49.9 fL (36.4-46.3); Red Blood Count 3.99 M/uL (4.2-5.4); White Blood Count 8.99 K/uL (4.8-10.8)
[2020-01-31 06:42] LABS: Albumin Globulin Ratio 0.9 (0.9-2); Albumin Level 2.7 gm/dl (3.4-5.0); BUN Creatinine Ratio 6.5 (10-20); Bilirubin,Total 0.2 mg/dl (0.2-1); Calcium 7.9 mg/dl (8.5-10.1); Creatinine Clr Calc Pharmacy 158.6 ml/min; Est GFR (African American) 140.2; Globulin 2.9 gm/dl (2.5-4.0); Potassium 3.9 mmol/L (3.5-5.1); Total Protein 5.6 gm/dl (6.4-8.2)
[2020-01-31] MEDS: NYSTATIN SUSP 500,000 U/5 ML UDC PO SCH (09:02)
[2020-01-31] MEDS: GABAPENTIN 800 MG TAB PO SCH ×4 (09:02→20:47)
[2020-01-31] MEDS: lamoTRIgine 100 MG TAB PO SCH ×2 (09:03→20:49)
[2020-01-31] MEDS: BACLOFEN 20 MG TAB PO SCH ×3 (09:03→20:47)
[2020-01-31] MEDS: NORTRIPTYLINE HCL 25 MG CAP PO SCH ×3 (09:05→20:48)
[2020-01-31] MEDS: LUBIPROSTONE 8 MCG CAP PO SCH (09:06)
[2020-01-31] MEDS: HEPARIN SOD 5,000 UNIT/0.5 ML VIAL SQ SCH ×2 (09:07→20:47)
[2020-01-31] MEDS: FAMOTIDINE 20 MG in SYRINGE 3 ML IV SCH (09:11)
[2020-01-31] MEDS: NSS + 20MEQ KCL 20 MEQ/1,000 ML BAG IV SCH ×3 (09:45→23:35)
[2020-01-31 09:56] LABS: Reticulocytes # 0.04 10^6/uL (0.02-0.10)
[2020-01-31] MEDS ORDERED: HYDROmorphone HCL 2 MG TAB PO PRN ×2 (10:01→12:21)
[2020-01-31] MEDS ORDERED: SUMAtriptan succinate 100 MG TAB PO PRN (10:15)
--- NOTE | 2020-01-31 10:27 | Surgery Progress Note ---
Date of Service January 31, 2020 Assessment & Plan (1) Esophageal candidiasis: clinically improving will advance diet will need diflucan at home for approx 10 days will sign off/call if needed. no surgical issues or need for f/u Subjective pt seen. doing ok. no n/v. eliza liquids. Physical Exam Physical Exam: alert. nad abd: soft. nt. nd. Results & Data Vital Signs (Past 12 Hours) Vital Signs Temp Pulse Resp BP Pulse Ox 01/31/20 07:00 36.9 C 82 16 122/82 95 01/30/20 23:27 37.1 C 94 H 17 119/76 90 PG Care Time/CCT Total # of Minutes Spent Total Time Spent with Patient: Total time spent is greater than 50% in coordination of care (as documented) at patient's floor/unit and/or counseling patient: Coding Level of Care Code 09597 Subseq Hosp Care Lvl 2 Diagnoses Esophageal candidiasis B37.81
[2020-01-31] MEDS ORDERED: IRON SUCROSE 200 MG in 0.9 % SODIUM CHLORIDE 100 ML IV ONE (10:30)
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
[2020-01-31] MEDS: FLUCONAZOLE 100 MG/50 ML BAG IV SCH (12:22)
[2020-01-31] MEDS ORDERED: NYSTATIN SUSP 500,000 U/5 ML UDC PO PRN (13:01)
[2020-01-31 13:26] LABS: Magnesium 2.1 mg/dl (1.8-2.4)
[2020-01-31] MEDS ORDERED: OXYMORPHONE HCL 5 MG PO PRN (13:44)
[2020-01-31] MEDS: ONDANSETRON INJ 2 MG/ML 2 ML VIAL IV PRN (14:38)
--- NOTE | 2020-01-31 14:44 | Electrocardiogram Report ---
Test Reason : Blood Pressure : / mmHG Vent. Rate : 089 BPM Atrial Rate : 089 BPM P-R Int : 180 ms QRS Dur : 086 ms QT Int : 372 ms P-R-T Axes : 055 -07 046 degrees QTc Int : 452 ms Normal sinus rhythm Normal ECG When compared with ECG of 12-JAN-2016 20:11, No significant change was found Confirmed by Jordi Borrego ([id number]) on 01/31/2020 2:43:35 PM Referred By: REFERRED SELF Confirmed By:Jordi Borrego
[2020-01-31] MEDS ORDERED: [UNRECOGNIZED DRUG - REMARK] PRN ×2 (15:20→15:33)
--- NOTE | 2020-01-31 16:15 | XRay Report ---
XR KUB/Abdomen 1 view CLINICAL HISTORY: n/v dyspnea COMPARISON STUDY: No previous studies for comparison. FINDINGS: Nonobstructive bowel pattern. Old healed fractures of the pubic ring. Stimulator pack overl michell the right flank. IMPRESSION: No acute process. Chronic and pre-existing change. ACT 112: Negative or not required by law. The above report was generated using voice recognition software. It may contain grammatical, syntax or spelling errors. Electronically signed by: Desean Carl M.D. 01/31/2020 4:14 PM
[2020-01-31] MEDS ORDERED: PATIENT'S OWN CONTROLLED MED PO PRN (16:20)
[2020-01-31] MEDS: OXYMORPHONE HCL 5 MG PO PRN (16:24)
[2020-01-31] MEDS: PROCHLORPERAZINE 5 MG in SYRINGE 4 ML IV PRN (16:28)
[2020-01-31] MEDS: PANTOprazole 40 MG TAB PO SCH (19:09)
[2020-01-31] MEDS: QUETIAPINE FUMARATE 300 MG TABLET PO SCH (20:47)
[2020-02-01 05:52] LABS: Hematocrit (blood only) 30.3 % (37-47); Hemoglobin 9.4 g/dL (12.0-16.0); Mean Corpuscular Hemoglobin 23.9 pg (25-34); Mean Corpuscular Volume 76.9 fL (80-100); Mean Platelet Volume 10.6 fL (7.4-10.4); Nucleated RBC # (auto) 0.03 K/uL (0-0); Nucleated RBC % (auto) 0.3 %; Platelet Count 478 K/uL (130-400); RDW Coefficient of Variation 18.2 % (11.5-14.5); RDW Standard Deviation 51.3 fL (36.4-46.3); Red Blood Count 3.94 M/uL (4.2-5.4); White Blood Count 11.31 K/uL (4.8-10.8)
[2020-02-01 06:28] LABS: BUN Creatinine Ratio 4.6 (10-20); Calcium 8.3 mg/dl (8.5-10.1); Creatinine Clr Calc Pharmacy 143.4 ml/min; Est GFR (African American) 135.6; Potassium 3.8 mmol/L (3.5-5.1)
[2020-02-01] MEDS: OXYMORPHONE HCL 5 MG PO PRN (07:35)
[2020-02-01] MEDS ORDERED: CHOLECALCIFEROL 1,000 UNITS 25 MCG TAB PO SCH (09:00)
[2020-02-01] MEDS ORDERED: MULTIVITAMIN TAB PO SCH (09:00)
[2020-02-01] MEDS: lamoTRIgine 100 MG TAB PO SCH (09:24)
[2020-02-01] MEDS: PANTOprazole 40 MG TAB PO SCH (09:24)
[2020-02-01] MEDS: GABAPENTIN 800 MG TAB PO SCH ×2 (09:24→12:03)
[2020-02-01] MEDS: BACLOFEN 20 MG TAB PO SCH ×2 (09:24→13:52)
[2020-02-01] MEDS: NORTRIPTYLINE HCL 25 MG CAP PO SCH (09:25)
[2020-02-01] MEDS: LUBIPROSTONE 8 MCG CAP PO SCH (09:25)
[2020-02-01] MEDS: HEPARIN SOD 5,000 UNIT/0.5 ML VIAL SQ SCH (09:28)
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
[2020-02-01] MEDS: FLUCONAZOLE 100 MG/50 ML BAG IV SCH (12:03)
[2020-02-01] MEDS: PROCHLORPERAZINE 5 MG in SYRINGE 4 ML IV PRN (13:52)
[2020-02-01] MEDS ORDERED: PROCHLORPERAZINE MALEATE 5 MG TAB PO ONE (13:55)
[2020-02-01] MEDS ORDERED: HEPARIN SOD 5,000 UNIT/0.5 ML VIAL SQ SCH (21:00)
--- NOTE | 2020-02-02 06:42 | Electrocardiogram Report ---
Test Reason : Blood Pressure : / mmHG Vent. Rate : 101 BPM Atrial Rate : 101 BPM P-R Int : 188 ms QRS Dur : 094 ms QT Int : 364 ms P-R-T Axes : 056 -01 027 degrees QTc Int : 471 ms Sinus tachycardia Possible Inferior infarct , age undetermined Abnormal ECG When compared with ECG of 30-JAN-2020 14:23, No significant change was found Confirmed by Franko Iniguez ([id number]) on 02/02/2020 6:41:55 AM Referred By: REFERRED SELF Confirmed By:Franko Iniguez
== END 2020-02-01 15:10 | disposition home or self-care (01) | DRG 369 ==
LOC: ED 01:38 → 3E 01:38 → SUATTDRO 05:22 → 3E 05:45 → SUATTDRO 01-30 11:39

== ENCOUNTER 2021-03-21 13:53 | Inpatient (IN) ==
[2021-03-21] MEDS ORDERED: ACETAMINOPHEN 1,000 MG/100 ML VIAL IV STA (15:25)
[2021-03-21] MEDS ORDERED: FAMOTIDINE 20MG IV PUSH 20 MG/5 ML SYR IV STA (15:25)
[2021-03-21] MEDS ORDERED: ONDANSETRON INJ 2 MG/ML 2 ML VIAL IV STA (15:25)
[2021-03-21] MEDS ORDERED: SODIUM CHLORIDE 0.9% 1000ML 2,000 ML IV ONE (15:25)
[2021-03-21] MEDS ORDERED: MoRPHine SULFATE 4 MG/ML 1 ML CARP\\VIAL IV STA (15:25)
[2021-03-21] MEDS ORDERED: diphenhydrAMINE 50 MG/ML VIAL IV STA (15:25)
[2021-03-21] MEDS ORDERED: cefTRIAXone SODIUM 2,000 MG/70 ML BAG IV STA (15:28)
--- NOTE | 2021-03-21 15:43 | Emergency Department Note ---
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 Intracanalicular electrode is partially imaged. There is no consolidation to suggest pneumonia. The central airways are patent. IMPRESSION: 1. No pulmonary emboli identified. 2. No change in appearance of the chest with a trace left pleural effusion and subpleural left lower lung opacity consistent with scarring. Numerous old, healed left-sided rib fractures. ACT 112: Negative or not required by law. Electronically signed by: Ulises Abdul M.D. 03/21/2021 5:11 PM Discharge Plan Visit Data Chief Complaint: Fever Stated Complaint: FATTY [id number] RACING-SHORT WINDED ED Provider: Chalino Moore Discharge Problem: Acute febrile illness, Asplenia, Abdominal pain, Nausea & vomiting, Leukocytosis Patient Disposition: Admitted As Inpatient Discharge Instructions Interventions: ED Discharge Assessment Last Done: 03/21/21 21:35 Forms Stand Alone Forms: [facility] Prescriptions Prescriptions: No Action lubiprostone 24 mcg capsule 48 mcg PO DAILY RF: 0 baclofen 20 mg tablet 20 mg PO TID Qty: 30 RF: 0 gabapentin 800 mg tablet 800 mg PO QID RF: 0 hydromorphone 2 mg tablet 1 mg PO Q8H PRN (Reason: Pain) RF: 0 quetiapine 300 mg tablet 300 mg PO DAILY RF: 0 multivitamin [Multiple Vitamins] tablet 1 tab PO DAILY RF: 0 sumatriptan succinate 100 mg tablet See Rx Instructions PO .COMPLEX Qty: 9 RF: 12 cholecalciferol (vitamin D3) [Vitamin D3] 50 mcg (2,000 unit) tablet 2,000 mcg PO DAILY RF: 0 nortriptyline 25 mg capsule 100 mg PO HS RF: 0 nortriptyline 25 mg capsule 50 mg PO BID RF: 0 oxymorphone 5 mg tablet 5 - 7.5 mg PO Q8 PRN (Reason: Pain) RF: 0 pantoprazole 40 mg Tablet,Delayed Release (Dr/Ec) 40 mg PO QAM Qty: 30 RF: 0 prochlorperazine maleate 5 mg tablet 5 mg PO Q8H PRN (Reason: nausea and vomiting) Qty: 7 RF: 0 fluconazole [Diflucan] 100 mg tablet 100 mg PO DAILY Qty: 2 RF: 0 Referrals Referrals: Moe Hughes MD [Primary Care Provider] - Discharge Problem: Abdominal pain Qualifiers: Abdominal location: upper abdomen, unspecified Qualified Code(s): R10.10 - Upper abdominal pain, unspecified Nausea & vomiting Qualifiers: Vomiting type: unspecified Vomiting Intractability: non-intractable Qualified Code(s): R11.2 - Nausea with vomiting, unspecified Leukocytosis Qualifiers: Leukocytosis type: unspecified Qualified Code(s): D72.829 - Elevated white blood cell count, unspecified
[2021-03-21 15:44] LABS: Appearance Urine Clear (Clear); Bilirubin Urine Negative (Negative); Blood Urine Negative (Negative); Color Urine Yellow; Glucose Urine UA Negative (Negative); Ketones Urine Negative (Negative); Leukocyte Esterase Urine Negative (Negative); Nitrite Urine Negative (Negative); Protein Urine Negative (Negative); Specific Gravity Urine 1.005 (1.000-1.030); Urobilinogen Urine Negative (Negative)
[2021-03-21 15:49] LABS: Basophils # (auto) 0.04 K/uL (0-0.2); Basophils % (auto) 0.3 %; Eosinophils # (auto) 0.22 K/uL (0-0.5); Eosinophils % (auto) 1.9 %; Hematocrit (blood only) 41.8 % (37-47); Immature Granulocytes # (auto) 0.03 K/uL (0.00-0.02); Immature Granulocytes % (auto) 0.3 %; Lymphocytes # (auto) 3.85 K/uL (1.2-3.4); Lymphocytes % (auto) 32.8 %; Mean Corpuscular Hemoglobin 28.2 pg (25-34); Mean Corpuscular Hgb Conc 33.5 g/dL (32-36); Mean Corpuscular Volume 84.3 fL (80-100); Mean Platelet Volume 10.9 fL (7.4-10.4); Monocytes # (auto) 0.88 K/uL (0.11-0.59); Monocytes % (auto) 7.5 %; Neutrophils # (auto) 6.72 K/uL (1.4-6.5); Neutrophils % (auto) 57.2 %; Platelet Count 554 K/uL (130-400); RDW Coefficient of Variation 15.2 % (11.5-14.5); RDW Standard Deviation 46.9 fL (36.4-46.3); Red Blood Count 4.96 M/uL (4.2-5.4); White Blood Count 11.74 K/uL (4.8-10.8)
[2021-03-21 15:54] LABS: Pregnancy Test, Serum Negative (Negative)
[2021-03-21 15:57] LABS: Alanine Aminotransferase 42 U/L (12-78); Albumin Level 3.4 gm/dl (3.4-5.0); Aspartate Aminotransferase 28 U/L (15-37); BUN Creatinine Ratio 16.4 (10-20); Bilirubin Direct 0.1 mg/dl (0-0.2); Blood Urea Nitrogen 12 mg/dl (7-18); Calcium 9.1 mg/dl (8.5-10.1); Carbon Dioxide 26 mmol/L (21-32); Chloride 110 mmol/L (98-107); Creatinine Clr Calc Pharmacy 103.1 ml/min; Est GFR (Non-African American) 101.9 ml/min; Glucose 88 mg/dl (70-99); Lipase 115 U/L (73-393); Magnesium 2.1 mg/dl (1.8-2.4); Phosphorus 3.2 mg/dl (2.5-4.9); Potassium 3.9 mmol/L (3.5-5.1); Sodium 140 mmol/L (136-145)
[2021-03-21 16:00] LABS: Alkaline Phosphatase 152 U/L (45-117); Bilirubin,Total 0.3 mg/dl (0.2-1); Creatine Kinase 124 U/L (26-192); Globulin 3.5 gm/dl (2.5-4.0); Total Protein 6.9 gm/dl (6.4-8.2); Troponin I < 0.015 ng/ml (0-0.045)
[2021-03-21 16:01] LABS: Prothrombin Time 10.1 Seconds (9.0-12.0)
[2021-03-21 16:14] LABS: Echinocytes 1+
[2021-03-21 16:16] LABS: Procalcitonin < 0.05 ng/ml (0-0.5)
[2021-03-21 16:22] LABS: Lyme Ab IgG w/WB Rflx Negative (Negative); Lyme Ab IgM w/WB Rflx Negative (Negative)
[2021-03-21] MEDS ORDERED: OPTIRAY 320 125ml IV ONE (16:22)
--- NOTE | 2021-03-21 17:05 | XRay Report ---
XR chest 1V portable CLINICAL HISTORY: SEPSIS COMPARISON STUDY: Chest radiograph January 12, 2016. FINDINGS: Multiple old left-sided rib fractures are noted. Left basilar opacity is unchanged and favo rs scarring. There is no pneumothorax. There is a trace left pleural effusion. There is no evidence f or pulmonary edema. Cardiomediastinal silhouette is stable. Intracanalicular electrode is partially i constanza. IMPRESSION: No acute cardiopulmonary findings. No significant change in appearance of the chest. ACT 112: Negative or not required by law. Electronically signed by: Ulises Abdul M.D. 03/21/2021 5:04 PM
--- NOTE | 2021-03-21 17:12 | CT Scan Report ---
CT ANGIOGRAPHY OF THE CHEST, PULMONARY EMBOLUS PROTOCOL CLINICAL HISTORY: SOB, tachycardia, R lower CP, fevers, r/o PE COMPARISON STUDY: Chest CT August 27, 2012. TECHNIQUE: Following IV administration of 120 mL of Optiray, helical axial images of the chest were o btained utilizing the pulmonary embolus protocol. Maximal intensity projections and sagittal and cor onal reformats were viewed on an independent 3D workstation. IV contrast was administered without co mplication. Automated exposure control was utilized for the study. A dose lowering technique was ut ilized adhering to the principles of ALARA. FINDINGS: No pulmonary emboli identified. There is mild cardiomegaly. No thoracic aortic dissection is present. There is no pericardial effusion. Trace left pleural effusion is noted. There is no pneum othorax. Left lower lobe subpleural opacity is unchanged. This reflects scarring. There is no consoli dation to suggest pneumonia. Numerous old left-sided rib fractures are again noted. Intracanalicular electrode is partially imaged. There is no consolidation to suggest pneumonia. The central airways ar e patent. IMPRESSION: 1. No pulmonary emboli identified. 2. No change in appearance of the chest with a trace left pleural effusion and subpleural left lower lung opacity consistent with scarring. Numerous old, healed left-sided rib fractures. ACT 112: Negative or not required by law. Electronically signed by: Ulises Abdul M.D. 03/21/2021 5:11 PM
--- NOTE | 2021-03-21 17:39 | CT Scan Report ---
CT OF THE ABDOMEN AND PELVIS WITH CONTRAST CLINICAL HISTORY: abd pain, n/v, fevers, asplenic, transaminitis COMPARISON STUDY: CT of the abdomen and pelvis January 29, 2020. Right upper quadrant ultrasound February. TECHNIQUE: Following IV administration of 120 mL of Optiray, axial images of the abdomen and pelvis w ere obtained from the lung bases to the proximal femurs. Images were reviewed in the axial, sagittal, and coronal planes. IV contrast was administered without complication. Automated exposure control w as utilized for the study. A dose lowering technique was utilized adhering to the principles of ALAR Chuckie. CT DOSE: 936.22 mGy.cm FINDINGS: Please note that the chest CT will be reported separately. Multiple old posttraumatic defor mities are noted. There is a trace left pleural effusion. A normal-appearing spleen is not identified . There is a splenule. There is no significant biliary ductal dilatation status post cholecystectomy. Hepatic steatosis is noted. The adrenal glands, kidneys and pancreas are unremarkable. There is no p eripancreatic infiltration. There is no hydronephrosis. IVC filters in place. Intracanalicular electr ode is noted. There are postoperative findings from Loreta-en-Y gastric bypass. Ventral hernia repair i s noted. 2.4 cm dominant follicle within the left ovary is noted. There is trace fluid within the pel vis. There is no evidence for a bowel obstruction. This colonic diverticulosis without evidence for a cute diverticulitis. IMPRESSION: 1. Hepatic steatosis. 2. No bowel obstruction status post Loreta-en-Y gastric bypass. 3. Normal appendix. No bowel wall thickening. 4. 2.4 cm dominant follicle within the left ovary. 5. Trace fluid within the pelvis which is likely physiologic. ACT 112: Negative or not required by law. Electronically signed by: Ulises Abdul M.D. 03/21/2021 5:37 PM
[2021-03-21] MEDS ORDERED: DOXYCYCLINE HYCLATE 100 MG in DEXTROSE 5% 100 ML IV STA (17:55)
[2021-03-21] MEDS ORDERED: HYDROmorphone INJ 1 MG/ML SYRINGE ONE (20:38)
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
[2021-03-21] MEDS ORDERED: NORTRIPTYLINE HCL 25 MG CAP PO SCH (22:00)
[2021-03-21] MEDS: ENOXAPARIN INJ 40 MG/0.4 ML SYR SQ SCH (23:20)
[2021-03-21] MEDS: GABAPENTIN 800 MG TAB PO SCH (23:23)
[2021-03-21] MEDS: BACLOFEN 20 MG TAB PO SCH (23:23)
[2021-03-21] MEDS: NORTRIPTYLINE HCL 25 MG CAP PO SCH (23:23)
[2021-03-22 06:13] LABS: Hematocrit (blood only) 36.4 % (37-47); Mean Corpuscular Hemoglobin 28.4 pg (25-34); Mean Corpuscular Volume 86.1 fL (80-100); Mean Platelet Volume 10.6 fL (7.4-10.4); Platelet Count 484 K/uL (130-400); RDW Coefficient of Variation 15.6 % (11.5-14.5); RDW Standard Deviation 49.4 fL (36.4-46.3); Red Blood Count 4.23 M/uL (4.2-5.4); White Blood Count 9.69 K/uL (4.8-10.8)
[2021-03-22] MEDS: DOXYCYCLINE HYCLATE 100 MG in DEXTROSE 5% 100 ML IV SCH ×2 (06:19→17:01)
[2021-03-22] MEDS: HYDROmorphone HCL 2 MG TAB PO PRN (06:19)
[2021-03-22 06:30] LABS: BUN Creatinine Ratio 12.8 (10-20); Calcium 8.7 mg/dl (8.5-10.1); Creatinine Clr Calc Pharmacy 101.1 ml/min; Est GFR (African American) 112.4 ml/min; Est GFR (Non-African American) 96.9 ml/min; Potassium 3.9 mmol/L (3.5-5.1)
[2021-03-22 06:45] LABS: Basophils # (auto) 0.07 K/uL (0-0.2); Basophils % (auto) 0.7 %; Eosinophils # (auto) 0.42 K/uL (0-0.5); Eosinophils % (auto) 4.3 %; Immature Granulocytes # (auto) 0.01 K/uL (0.00-0.02); Immature Granulocytes % (auto) 0.1 %; Lymphocytes # (auto) 5.41 K/uL (1.2-3.4); Lymphocytes % (auto) 55.8 %; Monocytes # (auto) 0.81 K/uL (0.11-0.59); Monocytes % (auto) 8.4 %; Neutrophils # (auto) 2.97 K/uL (1.4-6.5); Neutrophils % (auto) 30.7 %
[2021-03-22] MEDS: PANTOprazole 40 MG TAB PO SCH (08:37)
[2021-03-22] MEDS: CHOLECALCIFEROL 1,000 UNITS 25 MCG TAB PO SCH (08:37)
[2021-03-22] MEDS: NORTRIPTYLINE HCL 25 MG CAP PO SCH ×3 (08:37→22:09)
[2021-03-22] MEDS: BACLOFEN 20 MG TAB PO SCH ×3 (08:38→22:09)
[2021-03-22] MEDS: MULTIVITAMIN TAB PO SCH (08:38)
[2021-03-22] MEDS: GABAPENTIN 800 MG TAB PO SCH ×4 (08:38→22:10)
[2021-03-22] MEDS ORDERED: QUEtiapine FUMARATE 300 MG TABLET PO SCH (09:00)
[2021-03-22] MEDS ORDERED: PATIENT'S OWN CONTROLLED MED PO PRN (10:52)
--- NOTE | 2021-03-22 11:45 | Electrocardiogram Report ---
Test Reason : Blood Pressure : / mmHG Vent. Rate : 120 BPM Atrial Rate : 120 BPM P-R Int : 166 ms QRS Dur : 086 ms QT Int : 316 ms P-R-T Axes : 056 012 065 degrees QTc Int : 446 ms Sinus tachycardia Cannot rule out Inferior infarct , age undetermined Poor R wave progression, consider anterior MT vs. lead placement vs. LVH Abnormal ECG When compared with ECG of 09/30/2020 When compared with ECG of Possible Inferior infarct , age undetermined is now present Confirmed by Dameon Whitaker ([id number]) on 03/22/2021 11:44:46 AM Referred By: REFERRED SELF Confirmed By:Dameon Whitaker
--- NOTE | 2021-03-22 11:46 | Electrocardiogram Report ---
Test Reason : Blood Pressure : / mmHG Vent. Rate : 091 BPM Atrial Rate : 091 BPM P-R Int : 176 ms QRS Dur : 088 ms QT Int : 368 ms P-R-T Axes : 059 000 030 degrees QTc Int : 452 ms Normal sinus rhythm Possible Inferior infarct (cited on or before 01-FEB-2020) Poor R wave progression, consider anterior HI vs. lead placement vs. LVH Abnormal ECG When compared with ECG of 21-MAR-2021 14:08, (unconfirmed) Nonspecific T wave abnormality, improved in Inferior leads Confirmed by Dameon Whitaker ([id number]) on 03/22/2021 11:46:25 AM Referred By: REFERRED SELF Confirmed By:Dameon Whitaker
--- NOTE | 2021-03-22 15:59 | Hospitalist Progress Note ---
Date of Service March 22, 2021 Assessment & Plan (1) Acute febrile illness: Plan: 45 y/o F Hx depression, chronic pain, migraines, asplenia. The pt presents with a fever of 102 as measured at home. She has had fevers for 5-6 days prior to admission. She reports pain in her upper abdomen, more so on the R, nausea and an episode of vomiting. She denies a headache, cough or dysuria. Labs are notable for acute leukocytosis and thrombocytosis which is chronic. She does not describe any sick contacts and is vaccinated. 1) FUO in asplenic patient - she does have 4 small dogs and noted pulling ticks off them regularly. Pending Lyme and anaplasma PCR. Parasite smear is negative. Blood cultures pending. She remains on doxy and ceftriaxone pending cultures. --Will check a monospot today as well. 2) Abdominal pain and nausea/vomiting - no evidence of an acute GI process on imaging - IVF provided. Would avoid antiemtics as she has multiple QT- prolonging meds.--->N/V resolved today, but abdominal pain persists. RUQ tender to palpation. (2) Asplenia: Plan: As above. (3) Back pain: Plan: - Chronic pain- continue home narcotic regimen and Nortriptyline (4) Depression: Plan: - Continue Quetiapine (5) DVT prophylaxis: Plan: - Lovenox Plan: Dispo- Med/surg Admission and Anticipated Discharge Date Admission Date: March 21, 2021 Supervising Physician Co-Signing Physician Notes Attending Attestation - Personal bedside visit not performed. However, chart reviewed in detail, and care plan d/w RANDEE Day. I agree w/ the lazcano components of her documentation. Febrile illness for 5+ days. Etiology uncertain. I agree w/ w/u as planned by Ms Day. Follow cultures. Await tick-borne illness labs. Obie Goodwin MD Subjective Patient reports feeling extremely fatigued today with body aches. She denies any n/v, but does note persistent RUQ abdominal pain since prior to admission. Anaplasmosis PCR testing pending. Review of Systems Constitutional: + body aches and + fatigue; no fever and no chills Ear, Nose, Mouth, Throat: no dizziness Respiratory: no dyspnea Cardiovascular: no chest pain Gastrointestinal: + abdominal pain (RUQ abdominal pain ); no nausea and no vomiting Genitourinary: no dysuria and no difficulty urinating Musculoskeletal: + body aches Psychiatric: no confusion Physical Exam Constitutional: + overweight; no acute distress ENMT: Ears: no hearing impairment Neck: trachea midline, no thyromegaly Respiratory: normal respiratory effort, lungs clear to auscultation Cardiovascular: RRR, no murmur, no edema Gastrointestinal (Abdomen): Inspection/Auscultation: normal bowel sounds Percussion/Palpation: + abdomen tender (RUQ) and abdomen soft Musculoskeletal: Head/Neck/Chest: head atraumatic Skin: no rashes, warm and dry Psychiatric: A+Ox3, euthymic affect Lymphatic: no cervical or axillary lymphadenopathy Results & Data Results & Data ([facility]) Vital Signs (Past 12 Hours) Vital Signs Temp Pulse Resp BP Pulse Ox 03/22/21 07:41 36.9 C 84 16 115/70 93 PG Care Time/CCT Total # of Minutes Spent Total Time Spent with Patient: Total time spent is greater than 50% in coordination of care (as documented) at patient's floor/unit and/or counseling patient: Coding Level of Care Code 62297 Subseq Hosp Care Lvl 2 Medical Decision Making Moderate Complexity Diagnoses Acute febrile illness R50.9 Asplenia Q89.01 Back pain M54.9 Depression F32.9 DVT prophylaxis Z29.9
[2021-03-22] MEDS: cefTRIAXone SODIUM 2,000 MG in DEXTROSE 5% 50 ML IV SCH (16:18)
[2021-03-22] MEDS: OXYMORPHONE HCL PO PRN (17:23)
[2021-03-22] MEDS: ENOXAPARIN INJ 40 MG/0.4 ML SYR SQ SCH (22:09)
[2021-03-22] MEDS: QUEtiapine FUMARATE 300 MG TABLET PO SCH (22:10)
[2021-03-23] MEDS: DOXYCYCLINE HYCLATE 100 MG in DEXTROSE 5% 100 ML IV SCH ×2 (05:47→17:37)
[2021-03-23] MEDS: PANTOprazole 40 MG TAB PO SCH (08:01)
[2021-03-23] MEDS: BACLOFEN 20 MG TAB PO SCH ×3 (08:02→21:42)
[2021-03-23] MEDS: HYDROmorphone HCL 2 MG TAB PO PRN ×2 (08:02→21:43)
[2021-03-23] MEDS: CHOLECALCIFEROL 1,000 UNITS 25 MCG TAB PO SCH (08:02)
[2021-03-23] MEDS: MULTIVITAMIN TAB PO SCH (08:02)
[2021-03-23] MEDS: NORTRIPTYLINE HCL 25 MG CAP PO SCH ×3 (08:02→21:42)
[2021-03-23] MEDS: GABAPENTIN 800 MG TAB PO SCH ×4 (08:02→21:42)
--- NOTE | 2021-03-23 09:19 | Hospitalist Progress Note ---
Date of Service March 23, 2021 Assessment & Plan (1) Acute febrile illness: Plan: 45 y/o F Hx depression, chronic pain, migraines, asplenia. The pt presents with a fever of 102 as measured at home. She has had fevers for 5-6 days. 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 She denies a headache, cough or dysuria. Labs are notable for acute leukocytosis and thrombocytosis which is chronic. She does not describe any sick contacts and is vaccinated. Fever of unknown origin/possible tick-borne illness EBV pending Monospot negative Hepatits panel -- Blood for parasites negative -- covers for plasmodium, Babesia WBC 11.7k on admission (did have L shift) --> currently 9.7k Remains on Ceftriaxone/Doxy in patient asplenia-- continuing Bentyl added prn discomfort to see if any effect Got 2 doses of hydromorphone since admission (1mg on 03/22 and 1mg on 03/23) Alk phos 152 on admission --> trending down 118. follow on am labs UA without infection CXR no acute findings CTA Chest: 1. No pulmonary emboli identified. 2. No change in appearance of the chest with a trace left pleural effusion and subpleural left lower lung opacity consistent with scarring. Numerous old, healed left-sided rib fractures. CTA/P with hepatic steatosis, no bowel obstruction. normal appendix. 2.4cm dominant L ovarian follicle. trace fluid in pelvis likely physiologic --> Of note, prior CTAP January 2020 with distention of proximal gastric pouch above gastrojejunostomy suggestive of obstructing food bolus vs less likely stricture and bariatric surgeon f/u recommended at that time. Will need to check with patient if this was ever done. Has been afebrile since admission but does endorse lots of ticks at home. -- Lyme negative. Anaplasmosis smear not indicative of such, but PCR pending Depression - cont Quetiapine - avoid QT prolongation medications Chronic pain - Follows with pain clinic- cont home narcotic regimen and Nortriptyline DVT Prophylaxis - Lovenox SQ while inpatient Dispo: continued inpatient stay (2) Asplenia: (3) Back pain: Admission and Anticipated Discharge Date Admission Date: March 21, 2021 Subjective Patient evaluated this morning. Still with discomforts but not as bad. Come in waves. Agreeable to try bentyl. No much of an appetite. Occasional palpitations and notes prior holter in the past with "small murmur" but "no arrhythmia" noted per patient. She has endorsed stressors at home including health problems with significant other and taking mother to Dr oliveira. She believes she would be more comfortable at home to get better rest and will discuss with supervising provider to see if we can arrange this this evening. Also can send bentyl prn if effective. This afternoon temp to 99F and would feel more comfortable waiting overnight and possible d/c in AM. Review of Systems Review of Systems: All systems reviewed & are unremarkable except as noted in HPI & below Physical Exam Constitutional: + overweight; no acute distress ENMT: Ears: no hearing impairment Neck: trachea midline, no thyromegaly Respiratory: normal respiratory effort, lungs clear to auscultation Cardiovascular: RRR, no murmur, no edema Gastrointestinal (Abdomen): Inspection/Auscultation: normal bowel sounds Percussion/Palpation: + abdomen tender (RUQ/LUQ) and abdomen soft Musculoskeletal: Head/Neck/Chest: head atraumatic Skin: no rashes, warm and dry Psychiatric: A+Ox3, euthymic affect Lymphatic: no cervical or axillary lymphadenopathy Results & Data Results & Data ([facility]) Vital Signs (Past 12 Hours) Vital Signs Temp Pulse Resp BP Pulse Ox 03/23/21 07:25 36.9 C 70 18 122/80 98 03/22/21 23:16 37.2 C 72 16 121/73 95 Laboratory Results 03/23/21 03/23/21 03/23/21 Range/Units 09:39 09:39 09:39 WBC 9.73 (4.8-10.8) K/uL RBC 4.47 (4.2-5.4) M/uL Hgb 12.3 (12.0-16.0) g/dL Hct 38.3 (37-47) % MCV 85.7 (80-100) fL MCH 27.5 (25-34) pg MCHC 32.1 (32-36) g/dL RDW Std Deviation 48.7 H (36.4-46.3) fL RDW Coeff of Jeffrey 15.3 H (11.5-14.5) % Plt Count 475 H (130-400) K/uL MPV 10.2 (7.4-10.4) fL Immature Gran % (Auto) 0.2 % Neut % (Auto) 42.3 % Lymph % (Auto) 44.0 % [place] % (Auto) 8.7 % Eos % (Auto) 4.3 % Baso % (Auto) 0.5 % Neut # (Auto) 4.11 (1.4-6.5) K/uL Lymph # (Auto) 4.28 H (1.2-3.4) K/uL [place] # (Auto) 0.85 H (0.11-0.59) K/uL Eos # (Auto) 0.42 (0-0.5) K/uL Baso # (Auto) 0.05 (0-0.2) K/uL Immature Gran # (Auto) 0.02 (0.00-0.02) K/uL [facility] Panel (Flow) Pending Sodium 142 (136-145) mmol/L Potassium 3.7 (3.5-5.1) mmol/L Chloride 111 H (98-107) mmol/L Carbon Dioxide 24 (21-32) mmol/L Anion Gap 7.0 (3-11) BUN 9 (7-18) mg/dl Creatinine 0.86 (0.6-1.2) mg/dl Est Cr Clr Drug Dosing 88.1 ml/min Est GFR ( Amer) 95.2 ml/min Est GFR (Non-Af Amer) 82.2 ml/min BUN/Creatinine Ratio 10.3 (10-20) Glucose 116 H (70-99) mg/dl Calcium 8.8 (8.5-10.1) mg/dl Total Bilirubin 0.2 (0.2-1) mg/dl AST 18 (15-37) U/L ALT 32 (12-78) U/L Alkaline Phosphatase 118 H (45-117) U/L Total Protein 5.8 L (6.4-8.2) gm/dl Albumin 2.7 L (3.4-5.0) gm/dl Globulin 3.1 (2.5-4.0) gm/dl Albumin/Globulin Ratio 0.9 (0.9-2) EBV Capsid Ag IgG Ab EBV Capsid Ag IgM Ab EBV EA Restrict+Diffuse EBV Nuclear Antigen Ab EBV Antibody Interp Monoscreen (Negative) 03/22/21 03/22/21 Range/Units 17:45 17:45 WBC (4.8-10.8) K/uL RBC (4.2-5.4) M/uL Hgb (12.0-16.0) g/dL Hct (37-47) % MCV (80-100) fL MCH (25-34) pg MCHC (32-36) g/dL RDW Std Deviation (36.4-46.3) fL RDW Coeff of Jeffrey (11.5-14.5) % Plt Count (130-400) K/uL MPV (7.4-10.4) fL Immature Gran % (Auto) % Neut % (Auto) % Lymph % (Auto) % [place] % (Auto) % Eos % (Auto) % Baso % (Auto) % Neut # (Auto) (1.4-6.5) K/uL Lymph # (Auto) (1.2-3.4) K/uL [place] # (Auto) (0.11-0.59) K/uL Eos # (Auto) (0-0.5) K/uL Baso # (Auto) (0-0.2) K/uL Immature Gran # (Auto) (0.00-0.02) K/uL [facility] Panel (Flow) Sodium (136-145) mmol/L Potassium (3.5-5.1) mmol/L Chloride (98-107) mmol/L Carbon Dioxide (21-32) mmol/L Anion Gap (3-11) BUN (7-18) mg/dl Creatinine (0.6-1.2) mg/dl Est Cr Clr Drug Dosing ml/min Est GFR ( Amer) ml/min Est GFR (Non-Af Amer) ml/min BUN/Creatinine Ratio (10-20) Glucose (70-99) mg/dl Calcium (8.5-10.1) mg/dl Total Bilirubin (0.2-1) mg/dl AST (15-37) U/L ALT (12-78) U/L Alkaline Phosphatase (45-117) U/L Total Protein (6.4-8.2) gm/dl Albumin (3.4-5.0) gm/dl Globulin (2.5-4.0) gm/dl Albumin/Globulin Ratio (0.9-2) EBV Capsid Ag IgG Ab Pending EBV Capsid Ag IgM Ab Pending EBV EA Restrict+Diffuse Pending EBV Nuclear Antigen Ab Pending EBV Antibody Interp Pending Monoscreen Negative (Negative) PG Care Time/CCT Total # of Minutes Spent Total Time Spent with Patient: Total time spent is greater than 50% in coordination of care (as documented) at patient's floor/unit and/or counseling patient: Coding Level of Care Code 42023 Subseq Hosp Care Lvl 2 Diagnoses Acute febrile illness R50.9 Asplenia Q89.01 Back pain M54.9
[2021-03-23 09:54] LABS: Basophils # (auto) 0.05 K/uL (0-0.2); Basophils % (auto) 0.5 %; Eosinophils # (auto) 0.42 K/uL (0-0.5); Eosinophils % (auto) 4.3 %; Hematocrit (blood only) 38.3 % (37-47); Hemoglobin 12.3 g/dL (12.0-16.0); Immature Granulocytes # (auto) 0.02 K/uL (0.00-0.02); Immature Granulocytes % (auto) 0.2 %; Lymphocytes # (auto) 4.28 K/uL (1.2-3.4); Mean Corpuscular Hemoglobin 27.5 pg (25-34); Mean Corpuscular Hgb Conc 32.1 g/dL (32-36); Mean Corpuscular Volume 85.7 fL (80-100); Mean Platelet Volume 10.2 fL (7.4-10.4); Monocytes # (auto) 0.85 K/uL (0.11-0.59); Monocytes % (auto) 8.7 %; Neutrophils # (auto) 4.11 K/uL (1.4-6.5); Neutrophils % (auto) 42.3 %; Platelet Count 475 K/uL (130-400); RDW Coefficient of Variation 15.3 % (11.5-14.5); RDW Standard Deviation 48.7 fL (36.4-46.3); Red Blood Count 4.47 M/uL (4.2-5.4); White Blood Count 9.73 K/uL (4.8-10.8)
[2021-03-23 10:16] LABS: Albumin Level 2.7 gm/dl (3.4-5.0); BUN Creatinine Ratio 10.3 (10-20); Calcium 8.8 mg/dl (8.5-10.1); Creatinine Clr Calc Pharmacy 88.1 ml/min; Est GFR (African American) 95.2 ml/min; Est GFR (Non-African American) 82.2 ml/min; Potassium 3.7 mmol/L (3.5-5.1)
[2021-03-23 10:19] LABS: Albumin Globulin Ratio 0.9 (0.9-2); Bilirubin,Total 0.2 mg/dl (0.2-1); Globulin 3.1 gm/dl (2.5-4.0); Total Protein 5.8 gm/dl (6.4-8.2)
[2021-03-23] MEDS ORDERED: DICYCLOMINE HCL 10 MG CAP PO ONE (14:30)
[2021-03-23] MEDS: cefTRIAXone SODIUM 2,000 MG in DEXTROSE 5% 50 ML IV SCH (16:23)
[2021-03-23] MEDS: OXYMORPHONE HCL PO PRN (18:55)
[2021-03-23] MEDS ORDERED: SENNA 8.6 MG TAB PO SCH (21:00)
[2021-03-23] MEDS: QUEtiapine FUMARATE 300 MG TABLET PO SCH (21:42)
[2021-03-23] MEDS: ENOXAPARIN INJ 40 MG/0.4 ML SYR SQ SCH (21:43)
[2021-03-24] MEDS: PROCHLORPERAZINE MALEATE 5 MG TAB PO PRN ×2 (02:06→09:59)
[2021-03-24] MEDS: DOXYCYCLINE HYCLATE 100 MG in DEXTROSE 5% 100 ML IV SCH (05:32)
[2021-03-24 07:30] LABS: Basophils # (auto) 0.04 K/uL (0-0.2); Basophils % (auto) 0.3 %; Eosinophils # (auto) 0.33 K/uL (0-0.5); Eosinophils % (auto) 2.9 %; Hematocrit (blood only) 39.8 % (37-47); Hemoglobin 13.1 g/dL (12.0-16.0); Immature Granulocytes # (auto) 0.03 K/uL (0.00-0.02); Immature Granulocytes % (auto) 0.3 %; Mean Corpuscular Hemoglobin 27.5 pg (25-34); Mean Corpuscular Hgb Conc 32.9 g/dL (32-36); Mean Corpuscular Volume 83.6 fL (80-100); Mean Platelet Volume 10.4 fL (7.4-10.4); Monocytes # (auto) 0.92 K/uL (0.11-0.59); Neutrophils # (auto) 5.73 K/uL (1.4-6.5); Neutrophils % (auto) 49.5 %; Platelet Count 484 K/uL (130-400); Red Blood Count 4.76 M/uL (4.2-5.4); White Blood Count 11.55 K/uL (4.8-10.8)
[2021-03-24 07:55] LABS: BUN Creatinine Ratio 17.5 (10-20); Calcium 8.6 mg/dl (8.5-10.1); Creatinine Clr Calc Pharmacy 130.7 ml/min; Est GFR (African American) 129.9 ml/min; Est GFR (Non-African American) 112.1 ml/min; Potassium 3.8 mmol/L (3.5-5.1)
[2021-03-24] MEDS: BACLOFEN 20 MG TAB PO SCH ×2 (08:04→14:34)
[2021-03-24] MEDS: NORTRIPTYLINE HCL 25 MG CAP PO SCH ×2 (08:04→14:34)
[2021-03-24] MEDS: CHOLECALCIFEROL 1,000 UNITS 25 MCG TAB PO SCH (08:04)
[2021-03-24] MEDS: PANTOprazole 40 MG TAB PO SCH (08:04)
[2021-03-24] MEDS: MULTIVITAMIN TAB PO SCH (08:04)
[2021-03-24] MEDS: GABAPENTIN 800 MG TAB PO SCH ×2 (08:04→14:34)
[2021-03-24] MEDS: HYDROmorphone HCL 2 MG TAB PO PRN ×2 (08:12→12:25)
--- NOTE | 2021-03-24 08:29 | Hospitalist Progress Note ---
Date of Service March 24, 2021 Assessment & Plan (1) Acute febrile illness: Plan: 45 y/o F Hx depression, chronic pain, migraines, asplenia. The pt presents with a fever of 102 as measured at home. She has had fevers for 5-6 days. 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 She denies a headache, cough or dysuria. Labs are notable for acute leukocytosis and thrombocytosis which is chronic. She does not describe any sick contacts and is vaccinated. Fever of unknown origin/possible tick-borne illness EBV pending Monospot negative Hepatits panel -- Blood for parasites negative -- covers for plasmodium, Babesia WBC 11.7k on admission (did have L shift) --> currently 9.7k Remains on Ceftriaxone/Doxy in patient asplenia-- continuing Bentyl added prn discomfort to see if any effect Got 2 doses of hydromorphone since admission (1mg on 03/22 and 1mg on 03/23) Alk phos 152 on admission --> trending down 118. follow on am labs UA without infection CXR no acute findings CTA Chest: 1. No pulmonary emboli identified. 2. No change in appearance of the chest with a trace left pleural effusion and subpleural left lower lung opacity consistent with scarring. Numerous old, healed left-sided rib fractures. CTA/P with hepatic steatosis, no bowel obstruction. normal appendix. 2.4cm dominant L ovarian follicle. trace fluid in pelvis likely physiologic --> Of note, prior CTAP January 2020 with distention of proximal gastric pouch above gastrojejunostomy suggestive of obstructing food bolus vs less likely stricture and bariatric surgeon f/u recommended at that time. Will need to check with patient if this was ever done. Has been afebrile since admission but does endorse lots of ticks at home. -- Lyme negative. Anaplasmosis smear not indicative of such, but PCR pending Depression - cont Quetiapine - avoid QT prolongation medications Chronic pain - Follows with pain clinic- cont home narcotic regimen and Nortriptyline DVT Prophylaxis - Lovenox SQ while inpatient Dispo: continued inpatient stay (2) Asplenia: (3) Back pain: Admission and Anticipated Discharge Date Admission Date: March 21, 2021 Physical Exam Constitutional: + overweight; no acute distress ENMT: Ears: no hearing impairment Neck: trachea midline, no thyromegaly Respiratory: normal respiratory effort, lungs clear to auscultation Cardiovascular: RRR, no murmur, no edema Gastrointestinal (Abdomen): Inspection/Auscultation: normal bowel sounds Percussion/Palpation: + abdomen tender (RUQ/LUQ) and abdomen soft Musculoskeletal: Head/Neck/Chest: head atraumatic Skin: no rashes, warm and dry Psychiatric: A+Ox3, euthymic affect Lymphatic: no cervical or axillary lymphadenopathy Results & Data Results & Data ([facility]) Vital Signs (Past 12 Hours) Vital Signs Temp Pulse Resp BP Pulse Ox 03/23/21 22:03 37.6 C H 78 18 128/83 98 PG Care Time/CCT Total # of Minutes Spent Total Time Spent with Patient: Total time spent is greater than 50% in coordination of care (as documented) at patient's floor/unit and/or counseling patient: Coding Diagnoses Acute febrile illness R50.9 Asplenia Q89.01 Back pain M54.9
--- NOTE | 2021-03-24 08:50 | Electrocardiogram Report ---
Test Reason : Blood Pressure : / mmHG Vent. Rate : 076 BPM Atrial Rate : 076 BPM P-R Int : 174 ms QRS Dur : 084 ms QT Int : 416 ms P-R-T Axes : 068 042 040 degrees QTc Int : 468 ms Normal sinus rhythm Normal ECG When compared with ECG of 21-MAR-2021 15:42, No significant change was found Confirmed by Nilson Mares ([id number]) on 03/24/2021 8:50:11 AM Referred By: REFERRED SELF Confirmed By:Nilson Mares
[2021-03-24 09:31] LABS: Alanine Aminotransferase 34 U/L (12-78); Albumin Level 3.2 gm/dl (3.4-5.0); Alkaline Phosphatase 135 U/L (45-117); Aspartate Aminotransferase 20 U/L (15-37); Bilirubin Direct < 0.1 mg/dl (0-0.2); Bilirubin,Total 0.3 mg/dl (0.2-1); Total Protein 6.6 gm/dl (6.4-8.2)
[2021-03-24] MEDS ORDERED: PROMETHAZINE HCL 25 MG TAB PO ONE (10:23)
[2021-03-24 10:59] LABS: Hepatitis B Surf Ag Rflx Conf Neg (Neg)
[2021-03-24 11:27] LABS: Hepatitis C IgG 13Yrs+Old_Rflx Neg (Neg)
[2021-03-24 12:19] LABS: EBV Virus Capsid Ag IgG Ab >750.00 U/mL; Epstein Barr Virus Early Ag Ab <9.00 U/mL
[2021-03-24] MEDS ORDERED: PROMETHAZINE HCL 25 MG TAB PO PRN (13:13)
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
[2021-03-24 15:35] VITALS: BP 134/82; PULSE 85; TEMP 99.1; O2SAT 95
[2021-03-25 04:57] LABS: Hepatitis A Antibody IgM NON-REACTIVE (NON-REACTIVE); Hepatitis B Core Antibody IgM NON-REACTIVE (NON-REACTIVE)
[2021-03-27 12:06] LABS: HIV 1 RNA PCR Copies/ML <20 NOT DETECTED copies/mL (NOT DETECTED); HIV-1 RNA Log Copies/mL <1.30 NOT DETECTED (NOT DETECTED)
== END 2021-03-24 15:05 | disposition home or self-care (01) | DRG 866 ==
LOC: ED 13:53 → 3N 20:27 → SUATTDRO 20:27 → 3N 21:35

== ENCOUNTER 2021-07-10 13:01 | Inpatient (IN) ==
[2021-07-10] MEDS ORDERED: SODIUM CHLORIDE 0.9% 1000ML 1,000 ML IV ONE ×2 (14:45→16:50)
--- NOTE | 2021-07-10 15:11 | XRay Report ---
SINGLE VIEW CHEST CLINICAL HISTORY: Cough and fever FINDINGS: An AP, portable, upright chest radiograph is compared to chest x-ray and chest CT dated 02/27. The cardiomediastinal silhouette is unremarkable. Chronic pleural-parenchymal change at the l eft lung base is similar to previous. Bibasilar airspace consolidation is identified, left greater th an right. No large pleural effusion or pneumothorax is seen. Chronic deformity is seen in the ribs bi laterally. Intrathecal leads project over the lower thoracic region. IMPRESSION: Left greater than right bibasilar airspace consolidation is typical for pneumonia. Clinic al correlation will be required and radiographic follow-up to resolution is recommended. ACT 112: Negative or not required by law. Electronically signed by: Milo Guillermo M.D. 07/10/2021 3:09 PM
[2021-07-10 15:30] LABS: Basophils # (auto) 0.03 K/uL (0-0.2); Basophils % (auto) 0.2 %; Eosinophils # (auto) 0.03 K/uL (0-0.5); Eosinophils % (auto) 0.2 %; Hematocrit (blood only) 38.9 % (37-47); Hemoglobin 12.9 g/dL (12.0-16.0); Immature Granulocytes # (auto) 0.07 K/uL (0.00-0.02); Immature Granulocytes % (auto) 0.4 %; Lymphocytes # (auto) 1.84 K/uL (1.2-3.4); Mean Corpuscular Hemoglobin 27.9 pg (25-34); Mean Corpuscular Hgb Conc 33.2 g/dL (32-36); Monocytes # (auto) 1.35 K/uL (0.11-0.59); Monocytes % (auto) 7.4 %; Neutrophils # (auto) 15.04 K/uL (1.4-6.5); Neutrophils % (auto) 81.8 %; Platelet Count 500 K/uL (130-400); RDW Coefficient of Variation 16.2 % (11.5-14.5); RDW Standard Deviation 50.1 fL (36.4-46.3); Red Blood Count 4.63 M/uL (4.2-5.4); White Blood Count 18.36 K/uL (4.8-10.8)
[2021-07-10 16:00] LABS: BUN Creatinine Ratio 13.8 (10-20); Calcium 8.6 mg/dl (8.5-10.1); Creatinine Clr Calc Pharmacy 108.4 ml/min; Est GFR (African American) 122.1 ml/min; Est GFR (Non-African American) 105.4 ml/min; Potassium 4.5 mmol/L (3.5-5.1)
[2021-07-10] MEDS ORDERED: AZITHROMYCIN 250 MG TAB PO ONE (16:19)
[2021-07-10] MEDS ORDERED: cefTRIAXone SODIUM 1,000 MG/50 ML BAG IV STA ×2 (16:19→16:58)
[2021-07-10] MEDS ORDERED: KETOROLAC TROMETHAMINE 15 MG/ML VIAL IV STA (16:19)
[2021-07-10 16:21] LABS: Influenza A virus by PCR Negative (Negative); Influenza B virus by PCR Negative (Negative)
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
[2021-07-10] MEDS ORDERED: HYDROmorphone HCL 2 MG TAB PO STA (17:36)
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
[2021-07-10] MEDS ORDERED: POLYETHYLENE (MIRALAX) 17 GM PACK PO PRN (21:47)
[2021-07-10] MEDS ORDERED: NON-FORMULARY MEDICATION (Lubiprostone [Amitiza] 24 mcg capsule) PO SCH (21:47)
[2021-07-10] MEDS ORDERED: ONDANSETRON INJ 2 MG/ML 2 ML VIAL IV PRN (21:47)
[2021-07-10] MEDS ORDERED: OXYMORPHONE 5 MG PO PRN (21:47)
[2021-07-10] MEDS ORDERED: PROMETHAZINE HCL 25 MG TAB PO PRN (21:47)
[2021-07-10] MEDS ORDERED: ALUMINUM/MAGNESIUM SUSP 30 ML UDC PO PRN (21:47)
[2021-07-10] MEDS ORDERED: PANTOprazole 40 MG TAB PO PRN (22:09)
[2021-07-10] MEDS: BACLOFEN 20 MG TAB PO SCH (23:49)
[2021-07-10] MEDS: NYSTATIN POWDER 15GM BTL EXT SCH (23:49)
[2021-07-10] MEDS: QUEtiapine FUMARATE 300 MG TABLET PO SCH (23:50)
[2021-07-10] MEDS: valACYclovir HCL 500 MG TABLET PO SCH (23:50)
[2021-07-10] MEDS: GABAPENTIN 800 MG TAB PO SCH (23:50)
[2021-07-10] MEDS: NORTRIPTYLINE HCL 25 MG CAP PO SCH (23:51)
[2021-07-10] MEDS ORDERED: COUGH DROP (SUGAR FREE) LOZ 24 LOZ/1 BOX BUCCAL ONE (23:58)
[2021-07-11] MEDS: ACETAMINOPHEN 325 MG TAB PO PRN (04:45)
[2021-07-11] MEDS: HYDROmorphone HCL 2 MG TAB PO PRN ×2 (04:46→17:56)
[2021-07-11] MEDS: NORTRIPTYLINE HCL 25 MG CAP PO SCH ×3 (09:21→20:31)
[2021-07-11] MEDS: GABAPENTIN 800 MG TAB PO SCH ×4 (09:21→20:33)
[2021-07-11] MEDS: NYSTATIN POWDER 15GM BTL EXT SCH ×2 (09:22→20:30)
[2021-07-11] MEDS: BACLOFEN 20 MG TAB PO SCH ×2 (09:22→20:32)
[2021-07-11] MEDS: CHOLECALCIFEROL 1,000 UNITS 25 MCG TAB PO SCH (09:22)
[2021-07-11] MEDS: valACYclovir HCL 500 MG TABLET PO SCH ×3 (09:22→20:32)
[2021-07-11] MEDS: MULTIVITAMIN TAB PO SCH (09:23)
[2021-07-11] MEDS: AZITHROMYCIN 250 MG TAB PO SCH (09:23)
--- NOTE | 2021-07-11 13:55 | Hospitalist Progress Note ---
Date of Service July 11, 2021 Assessment & Plan (1) Community acquired pneumonia: Plan: Patient presents to the hospital with complaints of cough, productive of brownish sputum She is asplenic and at risk for encapsulated organisms Blood cultures have been obtained will continue empiric ceftriaxone and Azithromycin PRN duonebs for wheeze (2) Shingles: Plan: Questionable, her rash under the breast seems like fungal infection nystatin ointment (3) Asplenia: Plan: Noted. Patient reports prior pneumococcal vaccinations however does not have antibiotics on hand for fevers. Recommend considering these in the future for initial onset of any fevers. (4) Chronic pain: Plan: Continue her usual regimen of gabapentin, hydromorphone, nortriptyline, oxymorphone (5) Insomnia: Plan: Seroquel 300mg PO HS Plan: VTE Prophylaxis - chronic thrombophilia, however given young age, low risk, chemical prophylaxis deferred Diet - regular Disposition - observation status to med/surg Admission and Anticipated Discharge Date Admission Date: July 10, 2021 Subjective Patient seen and examined today, still short of breath, and coughing up brownish sputum Review of Systems Review of Systems: All systems reviewed are negative, apart from the ones contained in the history. Physical Exam Physical Exam: The patient is awake, alert and oriented 3, well developed and well nourished, normocephalic and atraumatic, lying in bed and in no acute distress. HEENT--PERRL, EOMI, mucous membranes and oropharynx mildly dry Neck--supple. No JVD. No bruits. Thyroid normal, trachea midline, no adenopathy. Heart--normal S1 and S2. No murmurs, rubs or gallops. Lungs--Reduced air entry on auscultation Abdomen--normal bowel sounds and soft. Mild epigastric and left sided abdominal pain Extremities--no cyanosis or clubbing. No edema. Dermatologic--normal skin turgor, normal color, no abnormal lymph nodes, no rash. Neurologic--cranial nerves II through XII grossly intact. Rheumatologic--normal range of motion. Psychiatric--normal affect. Results & Data Results & Data ([facility]) Vital Signs (Past 12 Hours) Vital Signs Temp Pulse Resp BP Pulse Ox 07/11/21 08:17 98.8 F 99 H 16 112/73 95 07/11/21 04:38 99.5 F 120 H 22 140/80 92 Laboratory Results Abnormal lab results 07/10/21 07/10/21 Range/Units 15:15 15:15 WBC 18.36 H (4.8-10.8) K/uL RDW Std Deviation 50.1 H (36.4-46.3) fL RDW Coeff of Jeffrey 16.2 H (11.5-14.5) % Plt Count 500 H (130-400) K/uL Neut # (Auto) 15.04 H (1.4-6.5) K/uL [place] # (Auto) 1.35 H (0.11-0.59) K/uL Immature Gran # (Auto) 0.07 H (0.00-0.02) K/uL Sodium 133 L (136-145) mmol/L Glucose 100 H (70-99) mg/dl PG Care Time/CCT Total # of Minutes Spent Total Time Spent with Patient: Total time spent is greater than 50% in coordination of care (as documented) at patient's floor/unit and/or counseling patient: Coding Level of Care Code 14748 Subseq Hosp Care Lvl 2 Diagnoses Community acquired pneumonia J18.9 Shingles B02.9 Asplenia Q89.01 Chronic pain G89.29 Insomnia G47.00
[2021-07-11] MEDS: ALBUT/IPRATROP 3MG/0.5MG NEB 3 ML VIAL NEB SCH ×3 (14:29→23:36)
[2021-07-11] MEDS: cefTRIAXone SODIUM 2,000 MG in DEXTROSE 5% 50 ML IV SCH (17:13)
[2021-07-11] MEDS: QUEtiapine FUMARATE 300 MG TABLET PO SCH (20:31)
[2021-07-12] MEDS: ALBUT/IPRATROP 3MG/0.5MG NEB 3 ML VIAL NEB SCH ×6 (02:35→22:39)
--- NOTE | 2021-07-12 07:11 | Electrocardiogram Report ---
Test Reason : Blood Pressure : / mmHG Vent. Rate : 105 BPM Atrial Rate : 105 BPM P-R Int : 184 ms QRS Dur : 096 ms QT Int : 350 ms P-R-T Axes : 064 011 065 degrees QTc Int : 462 ms Sinus tachycardia Low voltage QRS Borderline ECG When compared with ECG of 24-MAR-2021 05:27, No significant change was found Confirmed by Franko Iniguez ([id number]) on 07/12/2021 7:10:49 AM Referred By: Obie Reynaga Confirmed By:Franko Iniguez
[2021-07-12] MEDS: HYDROmorphone HCL 2 MG TAB PO PRN ×2 (08:49→21:34)
[2021-07-12] MEDS: GABAPENTIN 800 MG TAB PO SCH ×4 (08:50→21:16)
[2021-07-12] MEDS: valACYclovir HCL 500 MG TABLET PO SCH ×3 (08:50→21:17)
[2021-07-12] MEDS: NORTRIPTYLINE HCL 25 MG CAP PO SCH ×3 (08:51→21:16)
[2021-07-12] MEDS: BACLOFEN 20 MG TAB PO SCH ×2 (08:51→21:17)
[2021-07-12] MEDS: CHOLECALCIFEROL 1,000 UNITS 25 MCG TAB PO SCH (08:52)
[2021-07-12] MEDS: AZITHROMYCIN 250 MG TAB PO SCH (08:52)
[2021-07-12] MEDS: MULTIVITAMIN TAB PO SCH (08:52)
[2021-07-12] MEDS: NYSTATIN POWDER 15GM BTL EXT SCH ×2 (08:53→21:17)
[2021-07-12 09:02] LABS: Hematocrit (blood only) 35.1 % (37-47); Hemoglobin 11.4 g/dL (12.0-16.0); Mean Corpuscular Hemoglobin 27.7 pg (25-34); Mean Corpuscular Hgb Conc 32.5 g/dL (32-36); Mean Corpuscular Volume 85.4 fL (80-100); Mean Platelet Volume 9.6 fL (7.4-10.4); Platelet Count 578 K/uL (130-400); RDW Coefficient of Variation 16.4 % (11.5-14.5); RDW Standard Deviation 52.2 fL (36.4-46.3); Red Blood Count 4.11 M/uL (4.2-5.4); White Blood Count 13.79 K/uL (4.8-10.8)
[2021-07-12 09:31] LABS: BUN Creatinine Ratio 7.7 (10-20); Calcium 9.1 mg/dl (8.5-10.1); Creatinine Clr Calc Pharmacy 140.9 ml/min; Est GFR (Non-African American) 114.8 ml/min; Potassium 4.3 mmol/L (3.5-5.1)
--- NOTE | 2021-07-12 12:51 | Hospitalist Progress Note ---
Date of Service July 12, 2021 Assessment & Plan (1) Community acquired pneumonia: Plan: Patient presents to the hospital with complaints of cough, productive of brownish sputum She is asplenic and at risk for encapsulated organisms Blood cultures have been negative so far will continue empiric ceftriaxone and Azithromycin PRN duonebs for wheeze Patient is clinically much improved today, afebrile, WBC trending down (2) Asplenia: Plan: Noted. Patient reports prior pneumococcal vaccinations however does not have antibiotics on hand for fevers. Recommend considering these in the future for initial onset of any fevers. (3) Chronic pain: Plan: Continue her usual regimen of gabapentin, hydromorphone, nortriptyline, oxymorphone (4) Insomnia: Plan: Seroquel 300mg PO HS Plan: VTE Prophylaxis - chronic thrombophilia, however given young age, low risk, chemical prophylaxis deferred Diet - regular Disposition - observation status to med/surg Admission and Anticipated Discharge Date Admission Date: July 10, 2021 Subjective Patient seen and examined today, SOB is better, still coughing up yellowish sputum Review of Systems Review of Systems: All systems reviewed are negative, apart from the ones contained in the history. Physical Exam Physical Exam: The patient is awake, alert and oriented 3, well developed and well nourished, normocephalic and atraumatic, lying in bed and in no acute distress. HEENT--PERRL, EOMI, mucous membranes and oropharynx mildly dry Neck--supple. No JVD. No bruits. Thyroid normal, trachea midline, no adenopathy. Heart--normal S1 and S2. No murmurs, rubs or gallops. Lungs--Reduced air entry on auscultation Abdomen--normal bowel sounds and soft. Mild epigastric and left sided abdominal pain Extremities--no cyanosis or clubbing. No edema. Dermatologic--normal skin turgor, normal color, no abnormal lymph nodes, no rash. Neurologic--cranial nerves II through XII grossly intact. Rheumatologic--normal range of motion. Psychiatric--normal affect. Results & Data Results & Data ([facility]) Vital Signs (Past 12 Hours) Vital Signs Temp Pulse Resp BP Pulse Ox 07/12/21 11:13 97 H 19 94 07/12/21 07:48 98.6 F 97 H 16 119/79 97 07/12/21 07:20 93 H 18 94 07/12/21 02:35 88 20 96 Laboratory Results Laboratory Results - last 24 hr 07/12/21 07/12/21 08:28 08:28 WBC 13.79 H RBC 4.11 L Hgb 11.4 L Hct 35.1 L MCV 85.4 MCH 27.7 MCHC 32.5 RDW Std Deviation 52.2 H RDW Coeff of Jeffrey 16.4 H Plt Count 578 H MPV 9.6 Sodium 140 D Potassium 4.3 Chloride 106 Carbon Dioxide 28 Anion Gap 7.0 BUN 4 L D Creatinine 0.54 L Est Cr Clr Drug Dosing 140.9 Est GFR ( Amer) 133.0 Est GFR (Non-Af Amer) 114.8 BUN/Creatinine Ratio 7.7 L Glucose 128 H Calcium 9.1 PG Care Time/CCT Total # of Minutes Spent Total Time Spent with Patient: Total time spent is greater than 50% in coordination of care (as documented) at patient's floor/unit and/or counseling patient: Coding Level of Care Code 38488 Subseq Hosp Care Lvl 2 Diagnoses Community acquired pneumonia J18.9 Asplenia Q89.01 Chronic pain G89.29 Insomnia G47.00
[2021-07-12] MEDS: ACETAMINOPHEN 325 MG TAB PO PRN (17:21)
[2021-07-12] MEDS: cefTRIAXone SODIUM 2,000 MG in DEXTROSE 5% 50 ML IV SCH (17:23)
[2021-07-12] MEDS: QUEtiapine FUMARATE 300 MG TABLET PO SCH (21:16)
[2021-07-13] MEDS: ALBUT/IPRATROP 3MG/0.5MG NEB 3 ML VIAL NEB SCH ×5 (02:12→21:00)
[2021-07-13 07:12] LABS: Hematocrit (blood only) 37.8 % (37-47); Hemoglobin 12.3 g/dL (12.0-16.0); Mean Corpuscular Hemoglobin 27.7 pg (25-34); Mean Corpuscular Hgb Conc 32.5 g/dL (32-36); Mean Corpuscular Volume 85.1 fL (80-100); Mean Platelet Volume 9.4 fL (7.4-10.4); Platelet Count 655 K/uL (130-400); RDW Coefficient of Variation 16.1 % (11.5-14.5); RDW Standard Deviation 50.7 fL (36.4-46.3); Red Blood Count 4.44 M/uL (4.2-5.4); White Blood Count 14.94 K/uL (4.8-10.8)
[2021-07-13 07:40] LABS: BUN Creatinine Ratio 7.9 (10-20); Calcium 8.9 mg/dl (8.5-10.1); Est GFR (African American) 129.2 ml/min; Est GFR (Non-African American) 111.5 ml/min; Potassium 3.9 mmol/L (3.5-5.1)
[2021-07-13] MEDS: HYDROmorphone HCL 2 MG TAB PO PRN (08:49)
[2021-07-13] MEDS: valACYclovir HCL 500 MG TABLET PO SCH ×3 (08:51→20:55)
[2021-07-13] MEDS: BACLOFEN 20 MG TAB PO SCH ×2 (08:51→20:58)
[2021-07-13] MEDS: NORTRIPTYLINE HCL 25 MG CAP PO SCH ×3 (08:51→20:56)
[2021-07-13] MEDS: GABAPENTIN 800 MG TAB PO SCH ×4 (08:51→20:57)
[2021-07-13] MEDS: MULTIVITAMIN TAB PO SCH (08:52)
[2021-07-13] MEDS: CHOLECALCIFEROL 1,000 UNITS 25 MCG TAB PO SCH (08:52)
[2021-07-13] MEDS: NYSTATIN POWDER 15GM BTL EXT SCH ×2 (08:52→20:53)
[2021-07-13] MEDS: AZITHROMYCIN 250 MG TAB PO SCH (08:52)
[2021-07-13] MEDS ORDERED: guaiFENesin/CODEINE 100MG/10MG 5ML UDC PO STA (09:13)
--- NOTE | 2021-07-13 09:16 | Hospitalist Progress Note ---
Date of Service July 13, 2021 Assessment & Plan (1) Community acquired pneumonia: Plan: Patient presents to the hospital with complaints of cough, productive of brownish sputum She is asplenic and at risk for encapsulated organisms 07/13 Changed to full admit WBC 13.7k--> 14.9k although afebrile BCx remain NGTD after 48hrs Ceftriaxone/Azithro for CAP --> Sputum cx with h. influenzae, betalactamase neg --> Was going to de-escalate to amoxicillin however discussed with supervising and will utilize Augmentin (today is day 4, to be completed 07/16) to complete 7 day course, 1 more day azithromycin DuoNeb changed to scheduled -- would send HFA at d/c Added incentive spirometer, flutter valve Cough syrup prn Supplemental O2 to maintain sats -- now stable on room air Hopeful for d/c tomorrow (2) Asplenia: Plan: Noted. Patient reports prior pneumococcal vaccinations however does not have antibiotics on hand for fevers. --> Have f/u with PCP for possible abx proph for when she develops fevers (3) Chronic pain: Plan: Continue her usual regimen of gabapentin, hydromorphone, nortriptyline, o xymorphone (4) Insomnia: Plan: Seroquel 300mg PO HS Plan: Changed to full admission Lovenox SQ added for DVT Proph, ambulation encouraged Continued monitoring on oral abx, hopeful d/c tomorrow Admission and Anticipated Discharge Date Admission Date: July 10, 2021 Subjective patient eval this afternoon feeling better cough improved with medications no further fever,chills just got incentive spirometer and flutter valve this morning -- bringing up yellowish sputum which is improved from the brown on admission. has been on room air today discussed sputum cx and de-escalation of abx and will continue to monitor overnight. no inhaler at home and will make sure we send current one at d/c. hopeful d/c tomorrow if continues to make improvements Review of Systems Review of Systems: All systems reviewed & are unremarkable except as noted in HPI & below Physical Exam Constitutional: WD/WN, vitals as above + overweight; no acute distress Eyes: + anicteric sclerae and PERRL ENMT: Ears: no hearing impairment Neck: trachea midline, no thyromegaly Respiratory: normal respiratory effort, + cough and able to speak in complete sentences; no respiratory distress and not tachypneic Auscultation: lungs clear to auscultation bilaterally and + crackles (faint bibasillar crackles (improved w cough)); no rales, no rhonchi and no wheezes on room air Cardiovascular: RRR, no murmur, no edema Chest (Breasts): Additional Comments: rash under R breast, lesions healed/light pink, no drainage Gastrointestinal (Abdomen): Inspection/Auscultation: normal bowel sounds Percussion/Palpation: abdomen soft; no guarding and abdomen not rigid Musculoskeletal: no cyanosis or clubbing, extremities motor strength 5/5 Skin: warm, dry Neurologic: awake; not confused Psychiatric: A+Ox3, euthymic affect Lymphatic: no cervical or axillary lymphadenopathy Results & Data Results & Data ([facility]) Vital Signs (Past 12 Hours) Vital Signs Temp Pulse Resp BP Pulse Ox 07/13/21 08:18 96 H 18 92 07/13/21 02:12 90 16 97 07/12/21 22:39 100 H 18 95 07/12/21 22:26 37.1 C 109 H 18 118/74 95 Laboratory Results 07/13/21 07/13/21 Range/Units 06:55 06:55 WBC 14.94 H (4.8-10.8) K/uL RBC 4.44 (4.2-5.4) M/uL Hgb 12.3 (12.0-16.0) g/dL Hct 37.8 (37-47) % MCV 85.1 (80-100) fL MCH 27.7 (25-34) pg MCHC 32.5 (32-36) g/dL RDW Std Deviation 50.7 H (36.4-46.3) fL RDW Coeff of Jeffrey 16.1 H (11.5-14.5) % Plt Count 655 H (130-400) K/uL MPV 9.4 (7.4-10.4) fL Immature Gran % (Auto) 2.2 % Neut % (Auto) 57.4 % Lymph % (Auto) 26.6 % [place] % (Auto) 9.6 % Eos % (Auto) 3.6 % Baso % (Auto) 0.6 % Neut # (Auto) 8.16 H (1.4-6.5) K/uL Lymph # (Auto) 3.79 H (1.2-3.4) K/uL [place] # (Auto) 1.37 H (0.11-0.59) K/uL Eos # (Auto) 0.51 H (0-0.5) K/uL Baso # (Auto) 0.09 (0-0.2) K/uL Immature Gran # (Auto) 0.32 H (0.00-0.02) K/uL Sodium 141 (136-145) mmol/L Potassium 3.9 (3.5-5.1) mmol/L Chloride 107 (98-107) mmol/L Carbon Dioxide 26 (21-32) mmol/L Anion Gap 9.0 (3-11) BUN 5 L (7-18) mg/dl Creatinine 0.59 L (0.6-1.2) mg/dl Est Cr Clr Drug Dosing 129.0 ml/min Est GFR ( Amer) 129.2 ml/min Est GFR (Non-Af Amer) 111.5 ml/min BUN/Creatinine Ratio 7.9 L (10-20) Glucose 113 H (70-99) mg/dl Calcium 8.9 (8.5-10.1) mg/dl PG Care Time/CCT Total # of Minutes Spent Total Time Spent with Patient: Total time spent is greater than 50% in coordination of care (as documented) at patient's floor/unit and/or counseling patient: Coding Level of Care Code 69057 Subseq Hosp Care Lvl 3 Diagnoses Community acquired pneumonia J18.9 Asplenia Q89.01 Chronic pain G89.29 Insomnia G47.00
[2021-07-13 12:37] LABS: Basophils # (auto) 0.09 K/uL (0-0.2); Basophils % (auto) 0.6 %; Eosinophils # (auto) 0.51 K/uL (0-0.5); Eosinophils % (auto) 3.6 %; Immature Granulocytes # (auto) 0.32 K/uL (0.00-0.02); Immature Granulocytes % (auto) 2.2 %; Lymphocytes # (auto) 3.79 K/uL (1.2-3.4); Lymphocytes % (auto) 26.6 %; Monocytes # (auto) 1.37 K/uL (0.11-0.59); Monocytes % (auto) 9.6 %; Neutrophils # (auto) 8.16 K/uL (1.4-6.5); Neutrophils % (auto) 57.4 %
[2021-07-13] MEDS ORDERED: AMOXICILLIN 500 MG CAP PO SCH (14:00)
[2021-07-13] MEDS: ENOXAPARIN INJ 40 MG/0.4 ML SYR SQ SCH (16:11)
[2021-07-13] MEDS: AMOXICILLIN/CLAVULANATE 875 MG TAB PO SCH (16:11)
[2021-07-13] MEDS ORDERED: guaiFENesin/CODEINE 100MG/10MG 5ML UDC PO PRN (19:12)
[2021-07-13] MEDS: guaiFENesin 600 MG TABCR PO SCH (20:54)
[2021-07-13] MEDS: QUEtiapine FUMARATE 300 MG TABLET PO SCH (20:56)
[2021-07-14] MEDS: ALBUT/IPRATROP 3MG/0.5MG NEB 3 ML VIAL NEB SCH ×3 (00:09→07:47)
[2021-07-14 06:15] LABS: Hematocrit (blood only) 35.9 % (37-47); Hemoglobin 11.8 g/dL (12.0-16.0); Mean Corpuscular Hemoglobin 27.8 pg (25-34); Mean Corpuscular Hgb Conc 32.9 g/dL (32-36); Mean Corpuscular Volume 84.5 fL (80-100); Mean Platelet Volume 9.2 fL (7.4-10.4); Platelet Count 685 K/uL (130-400); RDW Coefficient of Variation 16.1 % (11.5-14.5); RDW Standard Deviation 49.9 fL (36.4-46.3); Red Blood Count 4.25 M/uL (4.2-5.4); White Blood Count 14.36 K/uL (4.8-10.8)
[2021-07-14 06:44] LABS: ALC (manual) 6.36 K/uL (1.2-3.4); ANC (manual) 5.57 K/uL (1.4-6.5); Basophils # (manual) 0.26 K/uL (0-0.2); Basophils % (manual) 1.8 %; Eosinophils # (manual) 0.89 K/uL (0-0.5); Eosinophils % (manual) 6.2 %; Lymphocytes # (manual) 3.56 K/uL (1.2-3.4); Lymphocytes % (manual) 24.8 %; Metamyelocytes # (manual) 0.26 K/uL (0-0); Metamyelocytes % (manual) 1.8 %; Monocytes # (manual) 1.02 K/uL (0.11-0.59); Monocytes % (manual) 7.1 %; Neutrophils # (manual) 5.57 K/uL (1.4-6.5); Neutrophils % (manual) 38.8 %; RBC Morphology Unremarkable; Reactive Lymphocytes % (manual) 19.5 %
[2021-07-14 07:01] LABS: BUN Creatinine Ratio 9.2 (10-20); Calcium 9.6 mg/dl (8.5-10.1); Creatinine Clr Calc Pharmacy 117.1 ml/min; Est GFR (African American) 125.1 ml/min; Potassium 3.8 mmol/L (3.5-5.1)
--- NOTE | 2021-07-14 08:23 | Hospitalist Progress Note ---
Date of Service July 14, 2021 Assessment & Plan Admission and Anticipated Discharge Date Admission Date: July 13, 2021 Results & Data Results & Data ([facility]) Vital Signs (Past 12 Hours) Vital Signs Temp Pulse Resp BP Pulse Ox 07/14/21 07:47 91 H 16 93 07/14/21 03:56 102 H 18 93 07/14/21 02:20 37.0 C 82 17 125/80 93 07/14/21 00:09 99 H 16 93 07/13/21 21:00 108 H 16 95 Laboratory Results 07/14/21 07/14/21 07/13/21 Range/Units 06:00 06:00 06:55 WBC 14.36 H 14.94 H (4.8-10.8) K/uL RBC 4.25 4.44 (4.2-5.4) M/uL Hgb 11.8 L 12.3 (12.0-16.0) g/dL Hct 35.9 L 37.8 (37-47) % MCV 84.5 85.1 (80-100) fL MCH 27.8 27.7 (25-34) pg MCHC 32.9 32.5 (32-36) g/dL RDW Std Deviation 49.9 H 50.7 H (36.4-46.3) fL RDW Coeff of Jeffrey 16.1 H 16.1 H (11.5-14.5) % Plt Count 685 H 655 H (130-400) K/uL MPV 9.2 9.4 (7.4-10.4) fL Immature Gran % (Auto) 2.2 % Neut % (Auto) 57.4 % Lymph % (Auto) 26.6 % [place] % (Auto) 9.6 % Eos % (Auto) 3.6 % Baso % (Auto) 0.6 % Neut # (Auto) 8.16 H (1.4-6.5) K/uL Lymph # (Auto) 3.79 H (1.2-3.4) K/uL [place] # (Auto) 1.37 H (0.11-0.59) K/uL Eos # (Auto) 0.51 H (0-0.5) K/uL Baso # (Auto) 0.09 (0-0.2) K/uL Immature Gran # (Auto) 0.32 H (0.00-0.02) K/uL Neutrophils % (Manual) 38.8 % Lymphocytes % (Manual) 24.8 % Reactive Lymphs % (Man) 19.5 % Monocytes % (Manual) 7.1 % Eosinophils % (Manual) 6.2 % Basophils % (Manual) 1.8 % Metamyelocytes % (Man) 1.8 % Neutrophils # (Manual) 5.57 (1.4-6.5) K/uL Total Absolute Neuts 5.57 (1.4-6.5) K/uL Lymphocytes # (Manual) 3.56 H (1.2-3.4) K/uL Reactive Lymphs # 2.80 K/uL Total Abs Lymphocytes 6.36 H (1.2-3.4) K/uL Monocytes # (Manual) 1.02 H (0.11-0.59) K/uL Eosinophils # (Manual) 0.89 H (0-0.5) K/uL Basophils # (Manual) 0.26 H (0-0.2) K/uL Metamyelocytes # (Man) 0.26 H (0-0) K/uL RBC Morphology Unremarkable Sodium 140 (136-145) mmol/L Potassium 3.8 (3.5-5.1) mmol/L Chloride 105 (98-107) mmol/L Carbon Dioxide 29 (21-32) mmol/L Anion Gap 6.0 (3-11) BUN 6 L (7-18) mg/dl Creatinine 0.65 (0.6-1.2) mg/dl Est Cr Clr Drug Dosing 117.1 ml/min Est GFR ( Amer) 125.1 ml/min Est GFR (Non-Af Amer) 108.0 ml/min BUN/Creatinine Ratio 9.2 L (10-20) Glucose 104 H (70-99) mg/dl Calcium 9.6 (8.5-10.1) mg/dl PG Care Time/CCT Total # of Minutes Spent Total Time Spent with Patient: Total time spent is greater than 50% in coordination of care (as documented) at patient's floor/unit and/or counseling patient: Coding
[2021-07-14] MEDS: ENOXAPARIN INJ 40 MG/0.4 ML SYR SQ SCH (09:10)
[2021-07-14] MEDS: AZITHROMYCIN 250 MG TAB PO SCH (09:11)
[2021-07-14] MEDS: GABAPENTIN 800 MG TAB PO SCH ×2 (09:11→13:54)
[2021-07-14] MEDS: NORTRIPTYLINE HCL 25 MG CAP PO SCH ×2 (09:11→13:54)
[2021-07-14] MEDS: CHOLECALCIFEROL 1,000 UNITS 25 MCG TAB PO SCH (09:11)
[2021-07-14] MEDS: guaiFENesin 600 MG TABCR PO SCH (09:11)
[2021-07-14] MEDS: AMOXICILLIN/CLAVULANATE 875 MG TAB PO SCH (09:12)
[2021-07-14] MEDS: BACLOFEN 20 MG TAB PO SCH (09:12)
[2021-07-14] MEDS: valACYclovir HCL 500 MG TABLET PO SCH ×2 (09:12→13:54)
[2021-07-14] MEDS: NYSTATIN POWDER 15GM BTL EXT SCH (09:12)
[2021-07-14] MEDS: MULTIVITAMIN TAB PO SCH (09:12)
[2021-07-14] MEDS ORDERED: LEVALBUTEROL HCL 0.63 MG/3 ML NEB NEB PRN (10:53)
--- NOTE | 2021-07-14 12:12 | Discharge Summary ---
Date of Service July 14, 2021 Admission HPI Per Admitting Provider Adrienne Edmond is a 45 year old female with asplenia (secondary to prior operation for trauma) who presents to the ER with shortness of breath and cough. She reports initial symptoms of low grade fever and cold sore 2 days previously. Increasing cough since then, coughing up brown sputum. Associated headache but only when coughing. No neck pain or change in mental status. Fever became worse last night (103 degrees Fahrenheit). She decided to come to the ER today due to increased shortness of breath. In the ER CXR showed left lower lobe consolidation. She is tachycardic but lactate levels normal. She was started on ceftriaxone and azithromycin for community acquired pneumonia. She was referred to medicine for admission and ongoing management of community acquired pneumonia due to being at higher risk with asplenia. Admission Exam Per Admitting Provider Constitutional: WD/WN, vitals as above Eyes: + anicteric sclerae; normal pupil size ENMT: No nuchal rigidity Kernig and Brudzinski signs negative Respiratory: normal respiratory effort; no respiratory distress Auscultation: + crackles (Left base); no diminished lung sounds, no rales, no rhonchi and no wheezes Cardiovascular: Rate/Rhythm: regular rhythm and + tachycardic Heart Sounds: no murmur Extremities: normal capillary refill and + pedal edema; no calf tenderness Gastrointestinal (Abdomen): normal bowel sounds, soft, nontender, no hepatosplenomegaly Musculoskeletal: no cyanosis or clubbing, extremities motor strength 5/5 Skin: + ulcer (Stage II ulcer open lesion unde r right breath without surrounding celluliti) No blistering rash, ulcered area and pain confined to under right breast only, not around her back Neurologic: moves all extremities and awake; not confused Psychiatric: A+Ox3, euthymic affect Principal Diagnosis Community Acquired Pneumonia Discharge Exam Constitutional WD/WN, vitals as above + overweight; no acute distress Eyes + anicteric sclerae and PERRL ENMT Ears: no hearing impairment Neck trachea midline, no thyromegaly Respiratory normal respiratory effort, + cough and able to speak in complete sentences; no respiratory distress and not tachypneic Auscultation: lungs clear to auscultation bilaterally and + crackles (faint bibasillar crackles (improved w cough)); no rales, no rhonchi and no wheezes Cardiovascular Rate/Rhythm: regular rhythm (rate 102bpm) Heart Sounds: normal S1 and normal S2; no murmur Extremities: no edema Gastrointestinal (Abdomen) Inspection/Auscultation: normal bowel sounds Percussion/Palpation: abdomen soft; no guarding and abdomen not rigid Musculoskeletal no cyanosis or clubbing, extremities motor strength 5/5 Skin warm, dry healing lesions under right breast Neurologic awake; not confused Psychiatric A+Ox3, euthymic affect Lymphatic no cervical or axillary lymphadenopathy Discharge Data Allergies Allergy/AdvReac Type Severity Reaction Status Date / Time oxycodone Allergy Intermediate HIVES & Verified 07/10/21 15:53 HYPOTENSION morphine Allergy Unknown ITCHING Verified 07/10/21 15:53 Consultations 07/10/21 16:20 ED Decision to Admit Stat Ordered Studies Chest X-Ray 07/10/21 14:39 SINGLE VIEW CHEST CLINICAL HISTORY: Cough and fever FINDINGS: An AP, portable, upright chest radiograph is compared to chest x-ray and chest CT dated 03/18/2021. The cardiomediastinal silhouette is unremarkable. Chronic pleural-parenchymal change at the left lung base is similar to previous. Bibasilar airspace consolidation is identified, left greater than right. No large pleural effusion or pneumothorax is seen. Chronic deformity is seen in the ribs bilaterally. Intrathecal leads project over the lower thoracic region. IMPRESSION: Left greater than right bibasilar airspace consolidation is typical for pneumonia. Clinical correlation will be required and radiographic follow-up to resolution is recommended. ACT 112: Negative or not required by law. Electronically signed by: Milo Guillermo M.D. 07/10/2021 3:09 PM Hospital Course (1) Community acquired pneumonia: Patient presents to the hospital with complaints of cough, productive of brownish sputum, fever x 2 days. COVID negative She is asplenic and at risk for encapsulated organisms Tx for CAP with Ceftriaxone/Azithromycin Duonebs, incentive spirometer, flutter valve, mucinex, cough syrup --> sent with Xopenex HFA and IS/flutter valve at discharge as well as cough syrup/mucinex Sputum cx with h. influenzae, betalactamase neg Completed 5 days azithromycin, de-escalated to Augmentin BID to complete 10 day course along with Valacyclovir for possible shingles under R breast on admit in immunocompromised patient/asplenia Patient feeling better, on room air, lungs sounding better and patient wanting to go home to be with her and animals. 2step prior to d/c without need for supplemental oxygen at discharge and sent with Augmentin as above to complete tx (2) Asplenia: Noted. Patient reports prior pneumococcal vaccinations however does not have antibiotics on hand for fevers. --> Have f/u with PCP for possible abx proph for when she develops fevers (3) Chronic pain: Continue her usual regimen of gabapentin, hydromorphone, nortriptyline, oxymorphone (4) Insomnia: Seroquel 300mg PO HS Discharged home with Augmentin, Valacyclovir, Xopenex HFA, mucinex, cough syrup To continue flutter valve, incentive spirometer as they were added later and have helped Total Time Total Time Spent Total Time Spent (In Minutes): 60 Discharge Plan Discharge Items Patient Disposition: Home - Self-Care Reason For Visit: CAP, ASPLENIA Discharge Diagnosis: Community Aquired Pneumonia Goals: You have been hospitalized for an acute medical problem. During your stay at [facility], we have made an effort to correct the problem that brought you to the hospital while keeping you as comfortable as possible. Medications were used to bring your condition under control and your discharge instructions will include directions for any medications you should take after leaving the hospital. Please make sure you see your Primary Care Provider as part of your follow up plan. Activity: Resume your previous activity Non-emergency contact: Primary Care Provider Call non-emergency contact if: you have any medication questions, your symptoms worsen and you have a fever Follow-up/Referrals: Moe Hughes MD [Primary Care Provider] - 07/27/21 2:50 pm Diet: Regular Addtl Attending Provider Instructions: You have been hospitalized for shortness of breath, fever, cough and found to have pneumonia on imaging. COVID testing was negative. Sputum culture showed you had a BACTERIAL PNEUMONIA. You have been treated with IV antibiotics and completed 5 days of azithromycin and were switched to oral Augmentin, which will be continued for 5 more days (4.5 as you got your dose this morning) to complete a 10 day course of treatment and be taken twice daily by mouth. After discussion, it is decided that you should continue the acyclovir 1000mg by mouth three times daily for another 5 days to complete a ten day course. You are being sent with an inhaler (xopenex) to use every 4-6 hours as needed for shortness of breath/wheezing. You should continue the incentive spirometer as well as flutter valve to help you clear your secretions/loosen up mucus. You should also continue mucinex twice daily. You have also been sent in a prescription for cough medication to use as needed for cough. Respiratory therapy did a test for your oxygen when up and walking around and this did not indicate that you need any supplementation at discharge. Please discuss with your PCP about possible antibiotic prophylaxis with something like amoxicillin in the future given you are without a spleen at the sign of first fever to help with prevention. Please follow up with PCP in the next week to monitor your progress since hospitalization. Please also continue follow up with hematology later this week to further investigate other underlying issues as you have already arranged. Please return to the emergency department with any fever, worsening shortness of breath, chest pain, or for any other symptoms that are concerning for you. It has been a pleasure being a part of the medical team providing for you while you have been in the hospital. Take care! Pending Studies at Discharge: No Stand-Alone Forms: My [facility] [employer], Smoking Cessation Medications and DC Order Prescriptions: New amoxicillin-pot clavulanate [Augmentin] 875-125 mg Tablet 1 tab PO BIDM Qty: 9 RF: 0 guaifenesin [Mucinex] 600 mg Tablet Extended Release 12hr 600 mg PO Q12 Qty: 10 RF: 0 levalbuterol tartrate [Xopenex HFA] 45 mcg/actuation HFA aerosol inhaler 2 inh inhalation Q6H PRN (Reason: shortness of breath) Qty: 15 RF: 0 dextromethorphan-guaifenesin 10-100 mg/5 mL liquid 10 ml PO Q8H PRN (Reason: cough) Qty: 500 RF: 0 Continued lubiprostone [Amitiza] 24 mcg capsule 48 mcg PO BID RF: 0 baclofen 20 mg tablet 20 mg PO TID Qty: 30 RF: 0 gabapentin 800 mg tablet 800 mg PO QID RF: 0 hydromorphone 2 mg tablet 1 mg PO Q8H PRN (Reason: Pain) RF: 0 quetiapine 300 mg tablet 300 mg PO HS RF: 0 multivitamin [Multiple Vitamins] tablet 1 tab PO DAILY RF: 0 sumatriptan succinate 100 mg tablet See Rx Instructions PO .COMPLEX Qty: 9 RF: 12 cholecalciferol (vitamin D3) [Vitamin D3] 50 mcg (2,000 unit) tablet 2,000 mcg PO DAILY RF: 0 nortriptyline 25 mg capsule 125 mg PO HS RF: 0 nortriptyline 25 mg capsule 50 mg PO BID RF: 0 oxymorphone 5 mg tablet 5 - 7.5 mg PO Q8 PRN (Reason: Pain) RF: 0 promethazine 25 mg Tablet 25 mg PO Q6H PRN (Reason: nausea and vomiting) Qty: 6 RF: 0 omeprazole 20 mg capsule,delayed release(DR/EC) 20 mg PO BID PRN (Reason: Acid Reflux) RF: 0 Discontinued valacyclovir 1 gram tablet 1,000 mg PO TID RF: 0 Discharge Orders: Discharge Order (Routine); Ordered 07/14/21 Ordered By: Naomy Turcios/Other Patient Handouts: What Is Pneumonia? Admission Data Admit Date/Time: 07/13/21 09:21 Attending Provider: Vinayak Galvan Admit Provider: Obie Ac Primary Care Provider: Moe Hughes Other Providers: Obie Ac Other Interventions: Discharge Summary Assessment (RN) Last Done: 07/14/21 15:10 Supervising Physician Co-Signing Physician Notes During face to face encounter, had a brief discussion about hospital course and completed physical exam. Answered all of the patient's questions. Reviewed above note and agree with it. Discussed discharge plan with patient and AMY Almanza. Patient will be discharged with diagnosis of Community acquired pneumonia. will finish course of antibiotics: augmentin. Discharge meds below. Coding Level of Care Code D/C DAY MANAGEMENT >30 MINS Diagnoses Community acquired pneumonia J18.9 Asplenia Q89.01 Chronic pain G89.29 Insomnia G47.00
== END 2021-07-14 16:36 | disposition home or self-care (01) | DRG 194 ==
LOC: 3N 13:01 → ED 13:01 → SUATTDRO 16:57 → 3N 22:08

== ENCOUNTER 2022-05-20 22:31 | Inpatient (IN) ==
[2022-05-20] MEDS ORDERED: SODIUM CHLORIDE 0.9% 1000ML 1,000 ML IV STA (22:39)
[2022-05-20] MEDS ORDERED: ALBUT/IPRATROP 3MG/0.5MG NEB 3 ML VIAL NEB STA (22:39)
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
[2022-05-20 23:20] LABS: Partial Thromboplastin Time 26.2 Seconds (21.0-31.0); Prothrombin Time 10.5 Seconds (9.0-12.0)
[2022-05-20 23:24] LABS: Pregnancy Test, Serum Negative (Negative)
[2022-05-20 23:29] LABS: Basophils # (auto) 0.08 K/uL (0-0.2); Basophils % (auto) 0.8 %; Echinocytes 1+; Eosinophils # (auto) 0.04 K/uL (0-0.50); Eosinophils % (auto) 0.4 %; Hematocrit (blood only) 42.2 % (34.1-44.9); Hemoglobin 13.6 g/dl (12.0-16.0); Immature Granulocytes # (auto) 0.06 K/uL (0.00-0.02); Immature Granulocytes % (auto) 0.6 %; Lymphocytes # (auto) 1.92 K/uL (1.2-3.4); Mean Corpuscular Hemoglobin 29.4 pg (25.0-34.0); Mean Corpuscular Hgb Conc 32.2 g/dL (32.0-36.0); Mean Corpuscular Volume 91.1 fL (80.0-100.0); Mean Platelet Volume 10.7 fL (9.4-12.3); Monocytes % (auto) 7.3 %; Neutrophils # (auto) 6.82 K/uL (1.4-6.5); Neutrophils % (auto) 70.9 %; Platelet Count 358 K/uL (130-400); RDW Coefficient of Variation 14.2 % (11.5-14.5); RDW Standard Deviation 47.4 fL (36.4-46.3); Red Blood Count 4.63 M/uL (3.93-5.22); Toxic Vacuolation 1+; White Blood Count 9.62 K/ul (4.8-10.8)
[2022-05-20 23:35] LABS: Albumin Globulin Ratio 1.6 (0.9-2); Bilirubin,Total 0.3 mg/dl (0.2-1.0); Calcium 8.6 mg/dl (8.5-10.1); Creatinine Clr Calc Pharmacy 97.1 ml/min; Est GFR (African American) 100.2 ml/min; Est GFR (Non-African American) 86.4 ml/min; Globulin 2.5 gm/dl (2.5-4.0); Potassium 3.5 mmol/L (3.5-5.1); Total Protein 6.5 gm/dl (6.0-8.3)
[2022-05-20 23:37] LABS: Troponin I High Sensitivity 8.4 pg/ml (0-14)
[2022-05-20 23:38] LABS: Acetaminophen 8 ug/ml (10-30); Salicylate < 3.0 mg/dl (3.0-30)
[2022-05-21 00:10] LABS: Amphetamines+Metham, Urine Neg (Neg); Barbiturates, Urine Neg (Neg); Benzodiazepine, Urine Neg (Neg); Cocaine, Urine Neg (Neg); MDMA (Ecstacy), Urine Neg (Neg); Methadone, Urine Neg (Neg); Opiate, Urine Pos (Neg); Phencyclidine, Urine Neg (Neg)
[2022-05-21 00:29] LABS: HCO3 ABG 19 mmol/L (19-24); Oxygen Saturation ABG 96.9 % (90-95); PCO2 ABG 45 mmHg (35-46); PO2 ABG 80 mmHg (80-95); pH ABG 7.24 (7.35-7.45)
[2022-05-21 00:31] LABS: Allen Test Pos (Pos)
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
[2022-05-21] MEDS: LACTATED RINGER'S 1,000 ML IV SCH ×2 (02:03→13:04)
[2022-05-21] MEDS: ACETAMINOPHEN 325 MG TAB PO PRN ×4 (04:56→19:53)
[2022-05-21 08:07] LABS: Hematocrit (blood only) 36.8 % (34.1-44.9); Hemoglobin 12.3 g/dl (12.0-16.0); Mean Corpuscular Hemoglobin 29.4 pg (25.0-34.0); Mean Corpuscular Hgb Conc 33.4 g/dL (32.0-36.0); Mean Corpuscular Volume 87.8 fL (80.0-100.0); Mean Platelet Volume 10.9 fL (9.4-12.3); Platelet Count 341 K/uL (130-400); RDW Coefficient of Variation 14.3 % (11.5-14.5); RDW Standard Deviation 45.1 fL (36.4-46.3); Red Blood Count 4.19 M/uL (3.93-5.22); White Blood Count 13.86 K/ul (4.8-10.8)
[2022-05-21 08:30] LABS: Albumin Globulin Ratio 1.8 (0.9-2); Albumin Level 3.7 gm/dl (3.4-5.0); BUN Creatinine Ratio 12.7 (10-20); Bilirubin,Total 0.3 mg/dl (0.2-1.0); Creatinine Clr Calc Pharmacy 123.1 ml/min; Est GFR (African American) 125.6 ml/min; Est GFR (Non-African American) 108.3 ml/min; Globulin 2.1 gm/dl (2.5-4.0); Magnesium 1.3 mg/dl (1.7-2.4); Potassium 3.6 mmol/L (3.5-5.1); Total Protein 5.8 gm/dl (6.0-8.3)
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
--- NOTE | 2022-05-21 08:47 | XRay Report ---
XR chest 1V portable CLINICAL HISTORY: Atypical chest pain. COMPARISON STUDY: Chest CT March 21, 2021. Chest radiograph July 10, 2021. FINDINGS: Lung volumes are diminished. There is no pneumothorax or pleural effusion. Cardiomediastina l silhouette is stable. There is no evidence for pulmonary edema. Old bilateral rib deformities are n oted. These are more numerous on the left. Left basilar opacity likely reflects scarring or atelectas is. IMPRESSION: No acute cardiopulmonary findings. Old posttraumatic findings within the left hemithorax . ACT 112: Negative or not required by law. Electronically signed by: Ulises Abdul M.D. 05/21/2022 8:45 AM
[2022-05-21] MEDS ORDERED: REMDESIVIR 200 MG in SODIUM CHLORIDE 0.9% 210 ML IV ONE (09:00)
[2022-05-21] MEDS: GABAPENTIN 800 MG TAB PO SCH ×3 (09:48→19:59)
[2022-05-21] MEDS: dexAMETHasone 6 MG in SYRINGE 0 ML IV SCH (09:48)
[2022-05-21] MEDS: BACLOFEN 20 MG TAB PO PRN (09:49)
[2022-05-21] MEDS ORDERED: OPTIRAY 300 500mL IV ONE (11:03)
--- NOTE | 2022-05-21 12:13 | CT Scan Report ---
CHEST CTA for PULMONARY ARTERIES CT DOSE: 515.39 mGycm HISTORY: Shortness of breath. Covid positive. TECHNIQUE: Multiaxial CT images of the chest were performed following the intravenous administration of contrast to evaluate the pulmonary arteries. Maximal intensity projection images were also obtaine d. A dose lowering technique was utilized adhering to the principles of ALARA. COMPARISON STUDY: Chest CTA 03/21/2021. FINDINGS: Normal caliber thoracic aorta with no evidence for dissection. The heart is normal in size. Respiratory motion artifact results in suboptimal evaluation of pulmonary arteries with near nondiag nostic evaluation of the left lower lobe segmental/subsegmental pulmonary arteries. However, there ar e no definite filling defects within the pulmonary arteries to suggest acute pulmonary embolus. No ev idence for right-sided heart strain. No pericardial effusion. A chronic trace left pleural effusions remains stable. The thyroid gland enhances normally. Normal caliber esophagus. No mediastinal or prerna r lymphadenopathy. Postoperative changes suggesting prior gastric bypass. There are few splenic nodul es within the left upper quadrant consistent with splenosis. This remains unchanged. Lower thoracic s tej stimulator leads are unchanged in position. Multiple old, healed rib fractures, left greater th an right, and an old manubrial fracture are again noted. No acute fractures identified. The central a irways are patent. There is a new linear density within the right lower lobe posteriorly. This favors subsegmental atelectasis. No pneumothorax. There are progressive linear densities within the left lo wer lobe posteriorly. This favors a combination of atelectasis and scarring. There is a faint small g roundglass density within the right middle lobe on image 171 and a new 4 mm nodule within the right u pper lobe on image 154. There is also a small irregular density within the right upper lobe posterior ly on image 101. These favor small foci of inflammatory/infectious change. IMPRESSION: 1. No evidence for pulmonary embolus with limitations as described above. 2. A few small patchy and nodular airspace opacities within the right lung which are new from the anali or study. This favors mild inflammatory/infectious change. [address] follow-up recommended to ensure resolution of the 4 mm right upper lobe pulmonary nodule. 3. Bilateral lower lobe linear densities are nonspecific but favor combination of scarring and subseg mental atelectasis. A superimposed pneumonia could also a similar appearance in the appropriate clini clifton setting. 4. Additional stable findings as described above. ACT 112: Negative or not required by law. Electronically signed by: Wililam Gimenez M.D. 05/21/2022 12:11 PM
[2022-05-21 12:35] LABS: Appearance Urine Clear (Clear); Bacteria Urine Automated Negative (Negative); Bilirubin Urine Negative (Negative); Blood Urine 3+ (Negative); Cast Urine Automated 0 /lpf (0-5); Color Urine Yellow; Glucose Urine UA Negative (Negative); Ketones Urine Negative (Negative); Leukocyte Esterase Urine Negative (Negative); Nitrite Urine Negative (Negative); Protein Urine Negative (Negative); Specific Gravity Urine 1.024 (1.000-1.030); Urobilinogen Urine Negative (Negative); pH Urine 6.5 (4.5-7.5)
--- NOTE | 2022-05-21 12:45 | Electrocardiogram Report ---
Test Reason : Blood Pressure : / mmHG Vent. Rate : 123 BPM Atrial Rate : 123 BPM P-R Int : 156 ms QRS Dur : 078 ms QT Int : 318 ms P-R-T Axes : 060 -09 030 degrees QTc Int : 455 ms Poor data quality, interpretation may be adversely affected Sinus tachycardia Low voltage QRS Nonspecific T wave abnormality Abnormal ECG When compared with ECG of 08-FEB-2022 12:17, Vent. rate has increased BY 61 BPM Confirmed by Jordi Borrego ([id number]) on 05/21/2022 12:45:20 PM Referred By: REFERRED SELF Confirmed By:Jordi Borrego
[2022-05-21] MEDS: AZITHROMYCIN 500 MG in DEXTROSE 5% 250 ML IV SCH (13:04)
--- NOTE | 2022-05-21 14:18 | Electrocardiogram Report ---
Test Reason : Blood Pressure : / mmHG Vent. Rate : 125 BPM Atrial Rate : 125 BPM P-R Int : 154 ms QRS Dur : 076 ms QT Int : 310 ms P-R-T Axes : 057 -09 044 degrees QTc Int : 447 ms Poor data quality, interpretation may be adversely affected Sinus tachycardia Low voltage QRS Borderline ECG When compared with ECG of 20-MAY-2022 22:37, (unconfirmed) No significant change was found Confirmed by Jordi Borrego ([id number]) on 05/21/2022 2:17:55 PM Referred By: REFERRED SELF Confirmed By:Jordi Borrego
[2022-05-21] MEDS ORDERED: HYDROmorphone HCL 2 MG TAB PO PRN (16:04)
[2022-05-21] MEDS ORDERED: OXYMORPHONE 5 MG PO PRN (16:04)
[2022-05-21] MEDS ORDERED: PROMETHAZINE HCL 25 MG TAB PO PRN (16:04)
[2022-05-21] MEDS ORDERED: PANTOprazole 40 MG TAB PO PRN (16:10)
--- NOTE | 2022-05-21 17:36 | Communication Note ---
Date of Service: May 21, 2022 Chart reivewed. patient seen this am. still getting short of breath at times minimal cough. had fever this am
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
[2022-05-21] MEDS: cefTRIAXone SODIUM 2,000 MG in DEXTROSE 5% 50 ML IV SCH (18:09)
[2022-05-21] MEDS: ONDANSETRON INJ 2 MG/ML 2 ML VIAL IV PRN (18:51)
[2022-05-21] MEDS: HYDROmorphone INJ 0.5 MG/0.5 ML SYR IV PRN (19:51)
[2022-05-21] MEDS: VENLAFAXINE HCL 37.5 MG TAB PO SCH (20:00)
[2022-05-21] MEDS: ENOXAPARIN INJ 30 MG/0.3 ML SYR SQ SCH (20:02)
--- NOTE | 2022-05-21 20:50 | Communication Note ---
Date of Service: May 21, 2022 Patient states that her psychiatric medications were recently changed in the outpatient setting. She states Seroquel has been increased to 400 mg and lithium has been discontinued. I logged into [facility] EMR and per the pharmacy fill history, she recently filled 400 mg of Seroquel and the last fill of lithium was at the beginning of March. I will be removing lithium from her inpatient med orders. For tonight, I will keep at Seroquel 300mg dose in context of her LFT elevations; per pharmacy, 30% reduced clearance).
[2022-05-21] MEDS ORDERED: LITHIUM CARBONATE 300 MG TAB PO SCH (21:00)
[2022-05-21] MEDS: MoRPHine SULFATE 2 MG/ML CARP IV PRN (22:30)
[2022-05-21] MEDS: QUEtiapine FUMARATE 300 MG TABLET PO SCH (22:30)
[2022-05-22] MEDS: LACTATED RINGER'S 1,000 ML IV SCH ×2 (02:38→15:05)
[2022-05-22 02:45] LABS: Appearance Urine Clear (Clear); Bilirubin Urine Negative (Negative); Blood Urine Negative (Negative); Color Urine Yellow; Glucose Urine UA Negative (Negative); Ketones Urine Negative (Negative); Leukocyte Esterase Urine Negative (Negative); Nitrite Urine Negative (Negative); Protein Urine Negative (Negative); Specific Gravity Urine 1.005 (1.000-1.030); Urobilinogen Urine Negative (Negative); pH Urine 6.5 (4.5-7.5)
[2022-05-22] MEDS: MoRPHine SULFATE 2 MG/ML CARP IV PRN (06:12)
[2022-05-22] MEDS ORDERED: COUGH DROP (SUGAR FREE) LOZ 24 LOZ/1 BOX BUCCAL PRN (06:55)
[2022-05-22 07:27] LABS: Basophils # (auto) 0.05 K/uL (0-0.2); Basophils % (auto) 0.5 %; Eosinophils # (auto) 0.03 K/uL (0-0.50); Eosinophils % (auto) 0.3 %; Hematocrit (blood only) 34.8 % (34.1-44.9); Hemoglobin 11.5 g/dl (12.0-16.0); Immature Granulocytes # (auto) 0.02 K/uL (0.00-0.02); Immature Granulocytes % (auto) 0.2 %; Lymphocytes # (auto) 3.03 K/uL (1.2-3.4); Lymphocytes % (auto) 30.6 %; Mean Corpuscular Hemoglobin 29.7 pg (25.0-34.0); Mean Corpuscular Volume 89.9 fL (80.0-100.0); Mean Platelet Volume 11.6 fL (9.4-12.3); Monocytes # (auto) 0.72 K/uL (0.24-0.82); Monocytes % (auto) 7.3 %; Neutrophils # (auto) 6.06 K/uL (1.4-6.5); Neutrophils % (auto) 61.1 %; Platelet Count 307 K/uL (130-400); RDW Coefficient of Variation 14.7 % (11.5-14.5); RDW Standard Deviation 48.3 fL (36.4-46.3); Red Blood Count 3.87 M/uL (3.93-5.22); White Blood Count 9.91 K/ul (4.8-10.8)
[2022-05-22] MEDS: ENOXAPARIN INJ 30 MG/0.3 ML SYR SQ SCH (07:49)
[2022-05-22] MEDS: AZITHROMYCIN 500 MG in DEXTROSE 5% 250 ML IV SCH (07:49)
[2022-05-22] MEDS: GABAPENTIN 800 MG TAB PO SCH ×3 (07:50→20:59)
[2022-05-22] MEDS: HYDROmorphone INJ 0.5 MG/0.5 ML SYR IV PRN ×4 (07:50→21:01)
[2022-05-22] MEDS: VENLAFAXINE HCL 37.5 MG TAB PO SCH ×3 (07:50→20:59)
[2022-05-22] MEDS: dexAMETHasone 6 MG in SYRINGE 0 ML IV SCH (07:57)
[2022-05-22 08:09] LABS: Albumin Globulin Ratio 1.5 (0.9-2); Albumin Level 3.2 gm/dl (3.4-5.0); BUN Creatinine Ratio 9.6 (10-20); Bilirubin,Total 0.2 mg/dl (0.2-1.0); C Reactive Protein 12.86 mg/dl (0-0.5); Calcium 8.1 mg/dl (8.5-10.1); Creatinine Clr Calc Pharmacy 149.2 ml/min; Est GFR (African American) 133.7 ml/min; Est GFR (Non-African American) 115.4 ml/min; Globulin 2.1 gm/dl (2.5-4.0); Magnesium 1.7 mg/dl (1.7-2.4); Potassium 3.5 mmol/L (3.5-5.1); Total Protein 5.3 gm/dl (6.0-8.3)
[2022-05-22] MEDS ORDERED: REMDESIVIR 100 MG in SODIUM CHLORIDE 0.9% 230 ML IV SCH (12:00)
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
--- NOTE | 2022-05-22 17:09 | Pulmonology Progress Note ---
Date of Service May 22, 2022 Assessment & Plan (1) Multifocal pneumonia: (2) Acute respiratory failure with hypoxia: (3) Respiratory arrest: (4) COVID-19: Plan Chest x-rays 05/20/2022 personally reviewed: Portable film, poor inspiratory effort, right costophrenic and cardiophrenic angles are clean, left costophrenic angle is little bit blunted, patchy opacities appreciated bilaterally especially around the heart perihilar region. CTA chest 05/21/2022 personally reviewed: Patchy opacities appreciated bilaterally, more pronounced consolidative process appreciated bilateral lower lobes No significant mediastinal lymphadenopathy -- Acute hypoxic respiratory failure Etiology to me most likely seems to be aspiration pneumonia from vomiting COVID-19 PCR positive UDS positive for opiates Can consider cutting down on dexamethasone to 5 days if there is significant imp rovement in patient's condition. --Reproducible chest pain It is reproducible on palpation Likely from the CPR which patient got when the EMS arrived --Chronic opioid use For patient's underlying pain use High doses of opioids associated with CPAP as as well which needs to be kept in mind Plan: Continue with incentive spirometry and flutter valve Complete the course of antibiotics for 5 days Can consider stopping dexamethasone in 5 days if there is significant clinical improvement No further recommendation from pulmonary perspective. Will sign off, Please call directly with any questions Please note the above document was generated using voice recognition software. It may contain grammatical, syntax or spelling errors.Any formal questions or concerns about the content, text or information contained within the body of this dictation should be directly addressed to the provider for clarification. Admission and Anticipated Discharge Date Admission Date: May 21, 2022 Subjective Patient seen and examined at bedside. No acute distress, no adverse events overnight Patient's mother was in the room at the time of examination She was saturating 97% on room air She stated that her breathing is better compared to yesterday She is coughing and bringing up phlegm which is greenish in color, clearing up. Chest pain is also improved Review of Systems Review of Systems: All systems reviewed & are unremarkable except as noted in Subjective Physical Exam Physical Exam: Constitutional: No acute distress HEENT: EOMI, PERRLA Respiratory system: Decreased air entry bilaterally, no wheeze, no rhonchi, positive crackles bilateral lower lobes CVS: S1-S2 positive, no murmurs or gallops Abdomen: Soft, nontender, nondistended, positive bowel sounds x4 Extremities: +2 pulses bilaterally radialis/ dorsalis pedis, no cyanosis, +1 pitting edema bilateral lower extremity Neuro: Awake alert oriented x3 Psych: Normal mood and affect G/U: No [place] Skin: no rashes, warm and dry Lymphatic: no cervical or axillary lymphadenopathy Results & Data Results & Data ([facility]) Vital Signs (Past 12 Hours) Vital Signs Temp Pulse Pulse Resp BP Pulse Ox O2 Del Method 05/22/22 15:50 36.7 C 93 H 22 135/87 95 Nasal Cannula 05/22/22 11:22 37.7 C H 98 H 22 142/84 H 98 Room Air 05/22/22 08:00 Oxymask 05/22/22 06:15 91 H 05/22/22 06:26 37.3 C 81 18 137/86 96 Oxymask O2 Flow Rate 05/22/22 15:50 1 05/22/22 11:22 05/22/22 08:00 1 05/22/22 06:15 05/22/22 06:26 Laboratory Results 05/22/22 06:52 05/22/22 06:52 PG Care Time/CCT Total # of Minutes Spent Total Time Spent with Patient: Total time spent is greater than 50% in coordination of care (as documented) at patient's floor/unit and/or counseling patient: Coding Level of Care Code 15739 Subseq Hosp Care Lvl 2 Diagnoses Multifocal pneumonia J18.9 Acute respiratory failure with hypoxia J96.01 Respiratory arrest R09.2 COVID-19 U07.1
[2022-05-22] MEDS: cefTRIAXone SODIUM 2,000 MG in DEXTROSE 5% 50 ML IV SCH (17:23)
[2022-05-22] MEDS: QUEtiapine FUMARATE 300 MG TABLET PO SCH (20:59)
[2022-05-22] MEDS: ACETAMINOPHEN 325 MG TAB PO PRN (21:02)
[2022-05-23] MEDS: LACTATED RINGER'S 1,000 ML IV SCH (03:24)
[2022-05-23] MEDS: HYDROmorphone INJ 0.5 MG/0.5 ML SYR IV PRN ×5 (03:24→21:24)
[2022-05-23] MEDS: BENZONATATE 100 MG CAPSULE PO SCH ×3 (07:31→21:25)
[2022-05-23] MEDS ORDERED: HYDROcodone/HOMATROPINE SYRUP 5MG/1.5MG 5ML UDP PO PRN (09:27)
[2022-05-23 09:53] LABS: Codeine Urine NEGATIVE ng/mL (<50); Hydrocodone Urine NEGATIVE ng/mL (<50); Hydromor Urine 231 ng/mL (<50); Morphine Urine NEGATIVE ng/mL (<50); Norhydrocodone Conf Ur NEGATIVE ng/mL (<50); Noroxycodone Urine NEGATIVE ng/mL (<50); Oxycodone Urine NEGATIVE ng/mL (<50); Oxymorph Urine 6590 ng/mL (<50)
[2022-05-23] MEDS: VENLAFAXINE HCL 37.5 MG TAB PO SCH ×3 (10:07→21:25)
[2022-05-23] MEDS: AZITHROMYCIN 500 MG in DEXTROSE 5% 250 ML IV SCH (10:07)
[2022-05-23] MEDS: ENOXAPARIN INJ 30 MG/0.3 ML SYR SQ SCH (10:07)
[2022-05-23] MEDS: dexAMETHasone 6 MG in SYRINGE 0 ML IV SCH (10:12)
[2022-05-23] MEDS: GABAPENTIN 800 MG TAB PO SCH ×3 (10:40→21:25)
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
[2022-05-23] MEDS: ONDANSETRON INJ 2 MG/ML 2 ML VIAL IV PRN (13:42)
[2022-05-23] MEDS: cefTRIAXone SODIUM 2,000 MG in DEXTROSE 5% 50 ML IV SCH (16:53)
[2022-05-23] MEDS ORDERED: SCOPOLAMINE 1 MG TDSY TD SCH (20:00)
[2022-05-23] MEDS: QUEtiapine FUMARATE 300 MG TABLET PO SCH (21:25)
[2022-05-24] MEDS: CHECK SCOPOLAMINE PATCH PLACEMENT SCH ×3 (00:52→15:51)
[2022-05-24] MEDS: HYDROmorphone INJ 0.5 MG/0.5 ML SYR IV PRN ×5 (03:21→19:53)
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
[2022-05-24] MEDS: AZITHROMYCIN 500 MG in DEXTROSE 5% 250 ML IV SCH (09:03)
[2022-05-24] MEDS: dexAMETHasone 6 MG in SYRINGE 0 ML IV SCH (09:03)
[2022-05-24] MEDS: GABAPENTIN 800 MG TAB PO SCH ×3 (09:04→19:52)
[2022-05-24] MEDS: VENLAFAXINE HCL 37.5 MG TAB PO SCH ×3 (09:04→19:52)
[2022-05-24] MEDS: BENZONATATE 100 MG CAPSULE PO SCH ×3 (09:04→19:51)
[2022-05-24] MEDS: ENOXAPARIN INJ 30 MG/0.3 ML SYR SQ SCH (10:30)
[2022-05-24] MEDS: BACLOFEN 20 MG TAB PO PRN ×2 (15:00→22:36)
[2022-05-24] MEDS: cefTRIAXone SODIUM 2,000 MG in DEXTROSE 5% 50 ML IV SCH (17:46)
[2022-05-24] MEDS: QUEtiapine FUMARATE 300 MG TABLET PO SCH (21:46)
[2022-05-24] MEDS ORDERED: ALBUTEROL 0.083% NEBU SOLN 3 ML VIAL ONE (22:47)
[2022-05-25] MEDS: CHECK SCOPOLAMINE PATCH PLACEMENT SCH ×2 (00:28→09:02)
[2022-05-25] MEDS: HYDROmorphone INJ 0.5 MG/0.5 ML SYR IV PRN ×3 (04:51→13:15)
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
[2022-05-25] MEDS: dexAMETHasone 6 MG in SYRINGE 0 ML IV SCH (09:00)
[2022-05-25] MEDS: AZITHROMYCIN 500 MG in DEXTROSE 5% 250 ML IV SCH (09:01)
[2022-05-25] MEDS: GABAPENTIN 800 MG TAB PO SCH ×2 (09:01→13:15)
[2022-05-25] MEDS: BACLOFEN 20 MG TAB PO PRN (09:01)
[2022-05-25] MEDS: ENOXAPARIN INJ 30 MG/0.3 ML SYR SQ SCH (09:01)
[2022-05-25] MEDS: VENLAFAXINE HCL 37.5 MG TAB PO SCH ×2 (09:02→13:15)
[2022-05-25] MEDS: BENZONATATE 100 MG CAPSULE PO SCH ×2 (09:02→13:15)
[2022-05-25 09:32] LABS: Basophils # (auto) 0.06 K/uL (0-0.2); Basophils % (auto) 0.6 %; Hematocrit (blood only) 42.4 % (34.1-44.9); Hemoglobin 14.1 g/dl (12.0-16.0); Immature Granulocytes # (auto) 0.05 K/uL (0.00-0.02); Immature Granulocytes % (auto) 0.5 %; Lymphocytes # (auto) 5.26 K/uL (1.2-3.4); Lymphocytes % (auto) 53.7 %; Mean Corpuscular Hemoglobin 29.5 pg (25.0-34.0); Mean Corpuscular Hgb Conc 33.3 g/dL (32.0-36.0); Mean Corpuscular Volume 88.7 fL (80.0-100.0); Mean Platelet Volume 10.6 fL (9.4-12.3); Monocytes # (auto) 0.72 K/uL (0.24-0.82); Monocytes % (auto) 7.3 %; Neutrophils # (auto) 3.61 K/uL (1.4-6.5); Neutrophils % (auto) 36.9 %; Platelet Count 423 K/uL (130-400); RDW Coefficient of Variation 14.1 % (11.5-14.5); RDW Standard Deviation 45.6 fL (36.4-46.3); Red Blood Count 4.78 M/uL (3.93-5.22)
[2022-05-25 09:56] LABS: BUN Creatinine Ratio 12.9 (10-20); Calcium 8.9 mg/dl (8.5-10.1); Creatinine Clr Calc Pharmacy 109.7 ml/min; Est GFR (African American) 121.3 ml/min; Est GFR (Non-African American) 104.6 ml/min; Potassium 3.3 mmol/L (3.5-5.1)
--- NOTE | 2022-05-25 17:48 | Billing Data ---
Date of Service May 25, 2022 Coding Level of Care Code D/C DAY MANAGEMENT <30 MINS
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
--- NOTE | 2022-06-02 11:16 | Coding Query ---
To promote full compliance with coding requirements relating to patient care, provider participation is requested in all cases of glass breaker uncertainty. Please assist us with the question(s) below: Coding Question(s): The diagnosis below was documented in the H&P and early record, then subsequently fell off all further documentation on the last Progress Note on 05/24 and Discharge Summary. Please indicate if it is still a possible diagnosis or ruled out. Physician's Response(s): POSSIBLE OD/POSSIBLE OVERDOSE - (documentation on 05/24 PN of, "Opiate overdose Initially thought to be unintentional multi-drug overdose, secondary to mixing alcohol with chronic opiates, baclofen, gabapentin, and possible other sedating medications, based on 's initial statement. However, upon discussion with the patient, this appears to be primarily due to choking, as she had consumed alcohol hours apart from her usual pain meds", and the DS documents, " Though there was initial concern for alcohol and opiate intoxication, patient clarified that she simply choked on a taco and was not in any way inebriated.". ( x ) Diagnosed and POA ( ) Diagnosed and not POA ( ) Ruled out ( ) Other (please specify) MTDD
--- NOTE | 2022-06-02 11:27 | Coding Query ---
CODING QUERY To promote full compliance with coding requirements relating to patient care, provider participation is requested in all cases of fruit harvest worker uncertainty. Please assist us with the question(s) below: Coding Question(s): The DS documents, "You were brought to the hospital via ambulance after choking on food while at home. Upon admission, you were evaluated with lab tests and a chest x-ray that revealed findings consistent with pneumonia and an active COVID-19 infection. You were started on medicines to treat the most likely causes of your pneumonia, and your symptoms improved significantly over the course of your stay. As a result of your symptomatic improvement, we now feel that you are ready to be safely discharged home", and, "Pneumoniacertain elements do seem consistent with COVID, others with community- acquired/bacterial. Doubt aspiration, given that she was febrile before her choking episode, although I do suspect that the choking and hypoxia certainly was a factor leading to her admission. Safe/stable for homefinish course of antibiotics p.o. Otherwise as above", and the 05/24 PN documents, "Acute hypoxic respiratory failure/COVID-19 pneumonia/aspiration pneumonia/choking * IV ceftriaxone, azithromycin: Day 4/5 * IV dexamethasone 6 mg daily * Benzonatate as needed for cough" and, "Opiate overdose Initially thought to be unintentional multi-drug overdose, secondary to mixing alcohol with chronic opiates, baclofen, gabapentin, and possible other sedating medications, based on 's initial statement. However, upon discussion with the patient, this appears to be primarily due to choking, as she had consumed alcohol hours apart from her usual pain meds.", and the Supervising Physician documents, "Pneumoniacertain elements do seem consistent with COVID, others with community-acquired/bacterial. Doubt aspiration, given that she was febrile before her choking episode, although I do suspect that the choking and hypoxia certainly was a factor leading to her admission. Continue current antibiotics and supportive careshe is showing good improvement. Continue dexamethasone given that she was hypoxic in the context of COVID, although may be able to wean this faster given the higher probability it will lot of what is going on is bacterial.". Please specify below, in your clinical opinion, the diagnosis most responsible for the Inpatient admission: ( ) Covid-19 with Pneumonia possible consistent with Covid-19, others with community-acquired/bacterial pneumonia, doubt aspiration. ( x ) Choking episode. Please Specify further below: ( x ) due to possible Overdose - if not ruled out on the other query ( ) due to Other: Please Specify ( x ) accidental choking episode on food with no specified cause ( ) Other: Please Specify Physician's Response(s): Thank you Kari Bennett Principal Diagnosis: "that condition established after study, to be chiefly responsible for occasioning the admission of the patient to the hospital for care." Co-Existing Principal Diagnosis: "when two or more diagnoses equally meet the criteria for principal diagnosis as determined by the circumstances of admission, diagnostic work up, and/or therapy provided, and the Alphabetic Index, Tabular List, or another coding guideline does not provide sequencing direction, any one of the diagnoses may be sequenced first." "When the physician has documented what appears to be a current diagnosis in the body of the record, but has not included the diagnosis in the final diagnostic statement, the physician should be asked whether the diagnosis should be added." (Source Coding [facility] 2 QTR90. p3-4) DEONDRE
== END 2022-05-25 16:29 | disposition home or self-care (01) | DRG 205 ==
LOC: ED 22:31 → 2S 05-21 00:41 → SUATTDRO 05-21 00:41 → 2S 05-21 01:12
DX: T42.8X1A Poisoning by antiparkinsonism drugs and other central muscle-tone depressants, accidental (unintentional), initial encounter; Z79.899 Other long term (current) drug therapy; R07.89 Other chest pain; G43.109 Migraine with aura, not intractable, without status migrainosus; G89.4 Chronic pain syndrome; G47.00 Insomnia, unspecified; Z96.82 Presence of neurostimulator; R74.8 Abnormal levels of other serum enzymes; T51.0X1A Toxic effect of ethanol, accidental (unintentional), initial encounter; U07.1 COVID-19; F41.9 Anxiety disorder, unspecified; T40.601A Poisoning by unspecified narcotics, accidental (unintentional), initial encounter; T36.95XA Adverse effect of unspecified systemic antibiotic, initial encounter; R19.5 Other fecal abnormalities; T17.920A Food in respiratory tract, part unspecified causing asphyxiation, initial encounter; R50.81 Fever presenting with conditions classified elsewhere; Z88.5 Allergy status to narcotic agent; Z90.81 Acquired absence of spleen; T42.6X1A Poisoning by other antiepileptic and sedative-hypnotic drugs, accidental (unintentional), initial encounter; Z87.820 Personal history of traumatic brain injury; R13.10 Dysphagia, unspecified; J96.01 Acute respiratory failure with hypoxia; J15.9 Unspecified bacterial pneumonia; F32.A Depression, unspecified; Z86.711 Personal history of pulmonary embolism; J12.82 Pneumonia due to coronavirus disease 2019; Z86.16 Personal history of COVID-19

== ENCOUNTER 2022-12-09 17:24 | Inpatient (IN) ==
[2022-12-09] MEDS ORDERED: ALBUT/IPRATROP 3MG/0.5MG NEB 3 ML VIAL ONE (17:29)
[2022-12-09] MEDS ORDERED: ONDANSETRON INJ 2 MG/ML 2 ML VIAL IV STA (17:33)
[2022-12-09] MEDS ORDERED: MoRPHine SULFATE 4 MG/ML 1 ML CARP\\VIAL IV STA (17:33)
[2022-12-09] MEDS ORDERED: MoRPHine SULFATE 4 MG/ML 1 ML CARP\\VIAL IV PRN (17:33)
[2022-12-09] MEDS ORDERED: ALBUT/IPRATROP 3MG/0.5MG NEB 3 ML VIAL NEB ONE (17:33)
[2022-12-09] MEDS ORDERED: LORazepam 2 MG/1 ML VIAL IV STA (17:33)
[2022-12-09] MEDS ORDERED: LORazepam 2 MG/1 ML VIAL ONE (17:33)
[2022-12-09] MEDS ORDERED: SODIUM CHLORIDE 0.9% 500 ML IV STA (17:35)
[2022-12-09] MEDS ORDERED: CEFEPIME 2,000 MG/20 ML VIAL IV STA (17:37)
[2022-12-09] MEDS ORDERED: SODIUM CHLORIDE 0.9% 1000ML 1,000 ML IV ONE ×2 (17:41→18:03)
[2022-12-09] MEDS ORDERED: ACETAMINOPHEN 1,000 MG/100 ML VIAL IV STA (17:41)
[2022-12-09 17:50] LABS: iSTAT Creatinine 0.8 mg/dl (0.6-1.3); iSTAT Ionized Calcium 1.19 mmol/l (1.12-1.32); iSTAT Potassium 3.6 mmol/L (3.3-5.0)
--- NOTE | 2022-12-09 17:50 | Emergency Department Note ---
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 (NotDetected) B. pertussis DNA (PCR) (NotDetected) B.parapertussis DNA PCR (NotDetected) C. pneumoniae DNA (PCR) (NotDetected) Coronavirus OC43 (PCR) (NotDetected) Coronavirus HKU1 (PCR) (NotDetected) Coronavirus 229E (PCR) (NotDetected) SARS-CoV-2 (PCR) (NotDetected) Coronavirus NL63 (PCR) (NotDetected) Human Metapneumovir PCR (NotDetected) Influenza Type A (PCR) (NotDetected) Influenza Type B (PCR) (NotDetected) M. pneumoniae (PCR) (NotDetected) Parainfluenza 1 (PCR) (NotDetected) Parainfluenza 2 (PCR) (NotDetected) Parainfluenza 3 (PCR) (NotDetected) Parainfluenza 4 (PCR) (NotDetected) RSV (PCR) (NotDetected) Entero/Rhino (PCR) (NotDetected) Administered Medications Baclofen (Baclofen 20 Mg Tab) 20 mg PO TID PRN PRN Reason: Muscle Spasm Stop: 05/13/23 22:34 Last Admin: 12/09/22 23:23 Dose: 20 mg Documented By: BELINDA Enoxaparin Sodium (Enoxaparin Inj 40 Mg/0.4 Ml Syr) 40 mg SQ HS CAESAR Stop: 01/08/23 22:34 Last Admin: 12/09/22 23:21 Dose: 40 mg Documented By: BELINDA Gabapentin (Gabapentin 800 Mg Tab) 800 mg PO Q6 CAESAR Stop: 01/09/23 00:00 Last Admin: 12/09/22 23:23 Dose: 800 mg Documented By: BELINDA Lubiprostone (Lubiprostone 8 Mcg Cap) 24 mcg PO BID CAESAR Stop: 01/08/23 22:34 Last Admin: 12/09/22 23:21 Dose: 24 mcg Documented By: BELINDA Quetiapine Fumarate (Quetiapine Fumarate 200 Mg Tab) 400 mg PO HS CAESAR Stop: 01/08/23 22:34 Last Admin: 12/09/22 23:22 Dose: 400 mg Documented By: BELINDA Venlafaxine HCl (Venlafaxine Hcl 50 Mg Tab) 75 mg PO TID CAESAR Stop: 01/08/23 22:34 Last Admin: 12/09/22 23:22 Dose: 75 mg Documented By: BELINDA Discontinued Medications Albuterol (Albut/Ipratrop 3mg/0.5mg Neb 3 Ml Vial) Confirm Administered Dose 9 ml .ROUTE .STK-MED ONE Stop: 12/09/22 17:30 Last Admin: 12/09/22 19:06 Dose: Not Given Documented By: SILVIA Albuterol (Albut/Ipratrop 3mg/0.5mg Neb 3 Ml Vial) 12 ml NEB ONE ONE; Protocol Stop: 12/09/22 17:34 Last Admin: 12/09/22 18:23 Dose: 12 ml Documented By: LATASHA Hydromorphone HCl (Hydromorphone Inj 1 Mg/Ml Syringe) 1 mg IV NOW STA Stop: 12/09/22 19:46 Last Admin: 12/09/22 19:49 Dose: 1 mg Documented By: QUIN Sodium Chloride (Nss) 500 mls @ 999 mls/hr IV .Q31M STA Stop: 12/09/22 18:05 Last Infusion: 12/09/22 19:08 Dose: 0 mls/hr Documented By: Admin: 12/09/22 18:09 Dose: 999 mls/hr Documented By: SILVIA Cefepime HCl (Maxipime) 2,000 mg in 20 mls @ 5 mls/min IV NOW STA; Protocol Stop: 12/09/22 17:40 Last Admin: 12/09/22 18:13 Dose: 5 mls/min Documented By: SILVIA Acetaminophen (Ofirmev) 1,000 mg in 100 mls @ 400 mls/hr IV NOW STA Stop: 12/09/22 17:55 Last Infusion: 12/09/22 19:08 Dose: 0 mls/hr Documented By: Admin: 12/09/22 18:22 Dose: 400 mls/hr Documented By: SILVIA Sodium Chloride (Nss 1000ml) 1,000 mls @ 999 mls/hr IV .Q1H1M ONE Stop: 12/09/22 18:41 Last Infusion: 12/09/22 19:10 Dose: 0 mls/hr Documented By: Admin: 12/09/22 18:07 Dose: 999 mls/hr Documented By: SILVIA Sodium Chloride (Nss 1000ml) 1,000 mls @ 999 mls/hr IV .Q1H1M ONE Stop: 12/09/22 19:03 Last Infusion: 12/09/22 19:10 Dose: 0 mls/hr Documented By: Admin: 12/09/22 18:08 Dose: 999 mls/hr Documented By: SILVIA Sodium Chloride (Nss 1000ml) 250 mls @ 999 mls/hr IV .Q16M ONE Stop: 12/09/22 18:18 Last Infusion: 12/09/22 19:08 Dose: 0 mls/hr Documented By: Admin: 12/09/22 18:23 Dose: 999 mls/hr Documented By: SILVIA Vancomycin HCl 2,000 mg/ (Sodium Chloride) 540 mls @ 200 mls/hr IV NOW ONE Stop: 12/09/22 20:45 Last Admin: 12/09/22 19:13 Dose: 200 mls/hr Documented By: QUIN Magnesium Sulfate/Dextrose (Magnesium Sulfate / D5w) 1 gm in 100 mls @ 100 mls/hr IV NOW STA Stop: 12/09/22 19:17 Last Infusion: 12/09/22 20:41 Dose: 0 mls/hr Documented By: Admin: 12/09/22 19:44 Dose: 100 mls/hr Documented By: QUIN Ioversol (Optiray 320 500ml) 112 ml IV ONCE ONE Stop: 12/09/22 18:37 Last Admin: 12/09/22 18:36 Dose: 112 ml Documented By: JULIO Lorazepam (Lorazepam 2 Mg/1 Ml Vial) Confirm Administered Dose 2 mg .ROUTE .STK- MED ONE Stop: 12/09/22 17:34 Last Admin: 12/09/22 18:01 Dose: Not Given Documented By: SILVIA Lorazepam (Lorazepam 2 Mg/1 Ml Vial) 1 mg IV NOW STA Stop: 12/09/22 17:34 Last Admin: 12/09/22 17:59 Dose: 1 mg Documented By: SILVIA Morphine Sulfate (Morphine Sulfate 4 Mg/Ml 1 Ml Carp\Vial) 4 mg IV NOW STA Stop: 12/09/22 17:34 Last Admin: 12/09/22 18:17 Dose: 4 mg Documented By: SILVIA Morphine Sulfate (Morphine Sulfate 4 Mg/Ml 1 Ml Carp\Vial) 4 mg IV Q15M PRN PRN Reason: Pain Stop: 12/23/22 17:32 Last Admin: 12/09/22 19:25 Dose: 4 mg Documented By: QUIN Ondansetron HCl (Ondansetron Inj 2 Mg/Ml 2 Ml Vial) 4 mg IV NOW STA Stop: 12/09/22 17:34 Last Admin: 12/09/22 18:17 Dose: 4 mg Documented By: SILVIA Imaging Data Radiologist's Impression: Chest X-Ray 12/09/22 17:33 SINGLE VIEW CHEST CLINICAL HISTORY: Dyspnea. FINDINGS: An AP, portable, upright chest radiograph is compared to study dated 05/20/2022 and correlated with chest CT dated 05/21/2022. The cardiomediastinal silhouette is unremarkable. Bibasilar scarring/atelectasis is similar to previous, as is a trace left pleural effusion. There is no airspace consolidation typical for pneumonia. No pneumothorax is seen. Chronic post metastatic deformity of the ribs is unchanged. An intrathecal lead projects over the lower thoracic spine. IMPRESSION: Chronic parenchymal changes and small chronic left pleural effusion as above with no acute cardiopulmonary abnormality identified. ACT 112: Negative or not required by law. Electronically signed by: Milo Guillermo M.D. 12/09/2022 6:02 PM Chest CTA 12/09/22 17:35 CT ANGIOGRAPHY OF THE CHEST, PULMONARY EMBOLUS PROTOCOL CLINICAL HISTORY: Shortness of breath. COMPARISON STUDY: Chest CT May 21, 2022 and chest radiograph performed earlier today. TECHNIQUE: Following IV administration of 112 mL of Optiray, helical axial images of the chest were obtained utilizing the pulmonary embolus protocol. Maximal intensity projections and sagittal and coronal reformats were viewed on an independent 3D workstation. IV contrast was administered without complication. Automated exposure control was utilized for the study. A dose lowering technique was utilized adhering to the principles of ALARA. CT DOSE: 480.13 mGy.cm FINDINGS: No pulmonary emboli are identified however the segmental and gonzales bsegmental pulmonary arteries are suboptimally assessed due to suboptimal opacification respiratory motion. This exam is moderately compromised. There is no thoracic aortic dissection. No pericardial effusion is present. There is no thoracic lymphadenopathy. Bilateral old rib deformities are noted. A trace left pleural effusion is unchanged. This is likely chronic. There is no pneumothorax. Lungs are suboptimally assessed due to respiratory motion. Subpleural lingular and left lower lobe opacities favor atelectasis. Minimal groundglass opacity with small nodules within the superior segment of the left lower lobe on axial image 204 of 278 are noted. A 1.6 cm subpleural opacity within the right upper lobe on image 222 has developed since prior CT. This is likely atelectatic. Right lower lobe linear densities represent atelectasis. There are no acute fractures within the bony thorax. Splenules within the left upper quadrant are noted. Postoperative findings within the stomach are present. There is probable hepatic steatosis. IMPRESSION: 1. No pulmonary emboli identified. However, evaluation of the segmental and subsegmental pulmonary arteries significantly compromised due to artifact. 2. Trace left pleural effusion, unchanged. This is likely chronic. Subpleural opacities within the lungs favor atelectasis with the exception of minimal airspace opacity within the superior segment of the left lower lobe which may represent a mild infectious process. ACT 112: Negative or not required by law. Electronically signed by: Ulises Abdul M.D. 12/09/2022 7:02 PM Discharge Plan Visit Data Chief Complaint: Shortness of Breath/Dyspnea Stated Complaint: CARDIAC ARREST,SOB ED Provider: Milo Roque Discharge Problem: Sepsis, Asplenia, Leukocytosis, Pneumonia, SOB (shortness of breath), Tachycardia Patient Disposition: Admitted As Inpatient Condition: Serious Discharge Instructions Interventions: ED Discharge Assessment Last Done: 12/09/22 22:05
[2022-12-09] MEDS ORDERED: SODIUM CHLORIDE 0.9% 1000ML 250 ML IV ONE (18:03)
--- NOTE | 2022-12-09 18:03 | XRay Report ---
SINGLE VIEW CHEST CLINICAL HISTORY: Dyspnea. FINDINGS: An AP, portable, upright chest radiograph is compared to study dated 05/20/2022 and correlat ed with chest CT dated 05/21/2022. The cardiomediastinal silhouette is unremarkable. Bibasilar scarrin g/atelectasis is similar to previous, as is a trace left pleural effusion. There is no airspace conso lidation typical for pneumonia. No pneumothorax is seen. Chronic post metastatic deformity of the rib s is unchanged. An intrathecal lead projects over the lower thoracic spine. IMPRESSION: Chronic parenchymal changes and small chronic left pleural effusion as above with no acut e cardiopulmonary abnormality identified. ACT 112: Negative or not required by law. Electronically signed by: Milo Guillermo M.D. 12/09/2022 6:02 PM
[2022-12-09 18:04] LABS: Basophils # (auto) 0.12 K/uL (0-0.2); Basophils % (auto) 0.5 %; Eosinophils # (auto) 0.03 K/uL (0-0.50); Eosinophils % (auto) 0.1 %; Hemoglobin 14.2 g/dl (12.0-16.0); Immature Granulocytes # (auto) 0.16 K/uL (0.01-0.20); Immature Granulocytes % (auto) 0.6 %; Lymphocytes # (auto) 4.46 K/uL (1.2-3.4); Lymphocytes % (auto) 17.8 %; Mean Corpuscular Hemoglobin 28.9 pg (25.0-34.0); Mean Corpuscular Hgb Conc 33.8 g/dL (32.0-36.0); Mean Corpuscular Volume 85.5 fL (80.0-100.0); Mean Platelet Volume 11.8 fL (9.4-12.4); Monocytes # (auto) 1.12 K/uL (0.11-0.59); Monocytes % (auto) 4.5 %; Neutrophils # (auto) 19.19 K/uL (1.40-6.50); Neutrophils % (auto) 76.5 %; Platelet Count 449 K/uL (130-400); RDW Coefficient of Variation 15.4 % (11.5-14.5); RDW Standard Deviation 47.4 fL (36.4-46.3); Red Blood Count 4.91 M/uL (4.20-5.40); White Blood Count 25.08 K/ul (4.8-10.8)
[2022-12-09] MEDS ORDERED: VANCOMYCIN CONSULT ACTIVE PRN (18:04)
[2022-12-09] MEDS ORDERED: VANCOMYCIN HCL 2,000 MG in SODIUM CHLORIDE 0.9% 500 ML IV ONE (18:04)
[2022-12-09 18:10] LABS: Albumin Globulin Ratio 1.4 (0.9-2); Albumin Level 4.2 gm/dl (3.4-5.0); BUN Creatinine Ratio 18.4 (10-20); Bilirubin,Total 0.3 mg/dl (0.2-1.0); Calcium 9.3 mg/dl (8.6-10.3); Creatinine Clr Calc Pharmacy 88.2 ml/min; Est GFR (African American) 92.6 ml/min; Est GFR (Non-African American) 79.9 ml/min; Magnesium 1.6 mg/dl (1.7-2.4); Potassium 3.7 mmol/L (3.5-5.1); Total Protein 7.2 gm/dl (6.0-8.3)
[2022-12-09 18:15] LABS: Troponin I High Sensitivity 9.8 pg/ml (0-14)
[2022-12-09] MEDS ORDERED: MAGNESIUM SULFATE / D5W 1 GM/100 ML BAG IV STA (18:18)
[2022-12-09 18:22] LABS: Partial Thromboplastin Time 26.2 Seconds (21.0-31.0); Prothrombin Time 10.3 Seconds (9.0-12.0)
[2022-12-09] MEDS ORDERED: OPTIRAY 320 500ml IV ONE (18:36)
--- NOTE | 2022-12-09 19:04 | CT Scan Report ---
CT ANGIOGRAPHY OF THE CHEST, PULMONARY EMBOLUS PROTOCOL CLINICAL HISTORY: Shortness of breath. COMPARISON STUDY: Chest CT May 21, 2022 and chest radiograph performed earlier today. TECHNIQUE: Following IV administration of 112 mL of Optiray, helical axial images of the chest were o btained utilizing the pulmonary embolus protocol. Maximal intensity projections and sagittal and cor onal reformats were viewed on an independent 3D workstation. IV contrast was administered without co mplication. Automated exposure control was utilized for the study. A dose lowering technique was ut ilized adhering to the principles of ALARA. CT DOSE: 480.13 mGy.cm FINDINGS: No pulmonary emboli are identified however the segmental and subsegmental pulmonary arteri es are suboptimally assessed due to suboptimal opacification respiratory motion. This exam is moderat susi compromised. There is no thoracic aortic dissection. No pericardial effusion is present. There is no thoracic lymphadenopathy. Bilateral old rib deformities are noted. A trace left pleural effusion is unchanged. This is likely chronic. There is no pneumothorax. Lungs are suboptimally assessed due t o respiratory motion. Subpleural lingular and left lower lobe opacities favor atelectasis. Minimal gr oundglass opacity with small nodules within the superior segment of the left lower lobe on axial imag e 204 of 278 are noted. A 1.6 cm subpleural opacity within the right upper lobe on image 222 has deve loped since prior CT. This is likely atelectatic. Right lower lobe linear densities represent atelect asis. There are no acute fractures within the bony thorax. Splenules within the left upper quadrant a re noted. Postoperative findings within the stomach are present. There is probable hepatic steatosis. IMPRESSION: 1. No pulmonary emboli identified. However, evaluation of the segmental and subsegmental pulmonary a rteries significantly compromised due to artifact. 2. Trace left pleural effusion, unchanged. This is likely chronic. Subpleural opacities within the colleen ngs favor atelectasis with the exception of minimal airspace opacity within the superior segment of t he left lower lobe which may represent a mild infectious process. ACT 112: Negative or not required by law. Electronically signed by: Ulises Abdul M.D. 12/09/2022 7:02 PM
[2022-12-09 19:40] LABS: Adenovirus PCR Not Detected (NotDetected); Bordetella parapertussis PCR Not Detected (NotDetected); Bordetella pertussis PCR Not Detected (NotDetected); Chlamydia pneumoniae PCR Not Detected (NotDetected); Coronavirus 229E PCR Not Detected (NotDetected); Coronavirus CoV-2 (COVID19)PCR Not Detected (NotDetected); Coronavirus HKU1 PCR Not Detected (NotDetected); Coronavirus NL63 PCR Not Detected (NotDetected); Coronavirus OC43PCR Not Detected (NotDetected); Human Metapneumovirus PCR Not Detected (NotDetected); Influenza A PCR Not Detected (NotDetected); Influenza B PCR Not Detected (NotDetected); Mycoplasma pneumoniae PCR Not Detected (NotDetected); Parainfluenza Virus 1 PCR Not Detected (NotDetected); Parainfluenza Virus 2 PCR Not Detected (NotDetected); Parainfluenza Virus 3 PCR Not Detected (NotDetected); Parainfluenza Virus 4 PCR Not Detected (NotDetected); Respiratory Syncytial VirusPCR Not Detected (NotDetected); Rhinovirus/Enterovirus PCR Not Detected (NotDetected)
[2022-12-09] MEDS ORDERED: HYDROmorphone INJ 1 MG/ML SYRINGE IV STA (19:45)
[2022-12-09 20:09] LABS: Appearance Urine Clear (Clear); Bilirubin Urine Negative (Negative); Blood Urine Negative (Negative); Color Urine Yellow; Glucose Urine UA Negative (Negative); Ketones Urine Negative (Negative); Leukocyte Esterase Urine Negative (Negative); Nitrite Urine Negative (Negative); Protein Urine Negative (Negative); Specific Gravity Urine 1.015 (1.000-1.030); Urobilinogen Urine Negative (Negative); pH Urine 6.5 (4.5-7.5)
[2022-12-09] MEDS: LUBIPROSTONE 8 MCG CAP PO SCH (23:21)
[2022-12-09] MEDS: ENOXAPARIN INJ 40 MG/0.4 ML SYR SQ SCH (23:21)
[2022-12-09] MEDS: VENLAFAXINE HCL 50 MG TAB PO SCH (23:22)
[2022-12-09] MEDS: QUEtiapine FUMARATE 200 MG TAB PO SCH (23:22)
[2022-12-09] MEDS: GABAPENTIN 800 MG TAB PO SCH (23:23)
[2022-12-09] MEDS: BACLOFEN 20 MG TAB PO PRN (23:23)
[2022-12-10] MEDS ORDERED: HYDROmorphone HCL 2 MG TAB PO STA (00:28)
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
[2022-12-10] MEDS ORDERED: LACTATED RINGER'S 1,000 ML IV ONE (00:50)
[2022-12-10] MEDS: CEFEPIME 2,000 MG in SYRINGE 0 ML IV SCH ×3 (02:14→17:57)
[2022-12-10] MEDS ORDERED: ACETAMINOPHEN 500 MG TAB PO PRN (02:17)
[2022-12-10] MEDS ORDERED: POLYETHYLENE (MIRALAX) 17 GM PACK PO PRN (02:24)
[2022-12-10] MEDS: MAGNESIUM SULFATE / D5W 1 GM/100 ML BAG IV SCH ×2 (02:32→04:12)
[2022-12-10] MEDS ORDERED: HYDROmorphone HCL 2 MG TAB PO PRN (02:35)
[2022-12-10] MEDS: GABAPENTIN 800 MG TAB PO SCH ×5 (05:56→22:04)
[2022-12-10 07:20] LABS: BUN Creatinine Ratio 21.8 (10-20); Calcium 7.6 mg/dl (8.6-10.3); Creatinine Clr Calc Pharmacy 139.5 ml/min; Est GFR (African American) 130.4 ml/min; Est GFR (Non-African American) 112.5 ml/min; Magnesium 2.5 mg/dl (1.7-2.4); Phosphorus 2.8 mg/dl (2.5-4.9); Potassium 3.6 mmol/L (3.5-5.1)
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
[2022-12-10 07:49] LABS: Hematocrit (blood only) 31.7 % (37.0-47.0); Hemoglobin 10.8 g/dl (12.0-16.0); Mean Corpuscular Hemoglobin 29.3 pg (25.0-34.0); Mean Corpuscular Hgb Conc 34.1 g/dL (32.0-36.0); Mean Corpuscular Volume 86.1 fL (80.0-100.0); Mean Platelet Volume 10.9 fL (9.4-12.4); Platelet Count 346 K/uL (130-400); RDW Coefficient of Variation 15.9 % (11.5-14.5); RDW Standard Deviation 49.7 fL (36.4-46.3); Red Blood Count 3.68 M/uL (4.20-5.40); White Blood Count 12.63 K/ul (4.8-10.8)
[2022-12-10] MEDS ORDERED: VANCOMYCIN HCL 1,250 MG in SODIUM CHLORIDE 0.9% 250 ML IV SCH (08:00)
[2022-12-10] MEDS: LUBIPROSTONE 8 MCG CAP PO SCH ×2 (08:39→22:03)
[2022-12-10] MEDS: PANTOprazole 40 MG TAB PO SCH (08:39)
[2022-12-10] MEDS: VENLAFAXINE HCL 50 MG TAB PO SCH ×3 (08:39→22:04)
[2022-12-10] MEDS ORDERED: PROMETHAZINE HCL 6.25 MG in SODIUM CHLORIDE 0.9% 50 ML IV ONE (11:15)
[2022-12-10] MEDS: ALBUT/IPRATROP 3MG/0.5MG NEB 3 ML VIAL NEB PRN (11:49)
[2022-12-10 13:35] LABS: Basophils # (auto) 0.05 K/uL (0-0.2); Basophils % (auto) 0.4 %; Eosinophils # (auto) 0.24 K/uL (0-0.50); Hematocrit (blood only) 34.6 % (37.0-47.0); Hemoglobin 11.5 g/dl (12.0-16.0); Immature Granulocytes # (auto) 0.04 K/uL (0.01-0.20); Immature Granulocytes % (auto) 0.3 %; Lymphocytes # (auto) 2.57 K/uL (1.2-3.4); Lymphocytes % (auto) 21.3 %; Mean Corpuscular Hemoglobin 28.8 pg (25.0-34.0); Mean Corpuscular Hgb Conc 33.2 g/dL (32.0-36.0); Mean Corpuscular Volume 86.7 fL (80.0-100.0); Mean Platelet Volume 11.3 fL (9.4-12.4); Monocytes % (auto) 5.8 %; Neutrophils # (auto) 8.48 K/uL (1.40-6.50); Neutrophils % (auto) 70.2 %; Platelet Count 381 K/uL (130-400); RDW Coefficient of Variation 15.8 % (11.5-14.5); RDW Standard Deviation 49.1 fL (36.4-46.3); Red Blood Count 3.99 M/uL (4.20-5.40); White Blood Count 12.08 K/ul (4.8-10.8)
--- NOTE | 2022-12-10 14:11 | Pharmacy Report ---
Pharmacy PK ABX Note - Date of Service December 10, 2022 - Assessment and Plan Assessment 47 year old F receiving vancomycin/cefepime for treatment of pneumonia. Pertinent microbiologic data includes: n/A. Day # 1 of antimicrobial therapy. Plan Vancomycin * Loading dose: 2000 mg IV x 1 * Maintenance dose: 1500 mg IV every 12 hours * Regimen is predicted to achieve target AUC/YINA of 400-600 mg/L.hr * Trough level ordered for: 12/12/22 Pharmacy will continue to follow and will adjust dose/frequency as necessary. Thank you. Pharmacy has transitioned to AUC monitoring for vancomycin. AUC/YINA is the preferred PK/PD target and is associated with decreased risk of nephrotoxicity compared to traditional trough targets.
[2022-12-10] MEDS ORDERED: METOCLOPRAMIDE HCL INJ 5 MG/ML 2 ML VIAL IV STA (15:09)
[2022-12-10] MEDS: HYDROmorphone HCL 2 MG TAB PO PRN ×2 (16:15→21:18)
[2022-12-10] MEDS ORDERED: HYDROmorphone INJ 1 MG/ML SYRINGE IV STA (16:45)
[2022-12-10] MEDS: PROMETHAZINE HCL 6.25 MG in SODIUM CHLORIDE 0.9% 50 ML IV PRN (18:34)
--- NOTE | 2022-12-10 18:41 | Billing Data ---
Date of Service December 10, 2022 Coding Level of Care Code 80001 SUB INP/OBS CARE MIN
[2022-12-10] MEDS ORDERED: VANCOMYCIN HCL 1,500 MG in SODIUM CHLORIDE 0.9% 500 ML IV SCH (20:00)
[2022-12-10] MEDS: ENOXAPARIN INJ 40 MG/0.4 ML SYR SQ SCH (21:18)
[2022-12-10] MEDS: HYDROmorphone INJ 1 MG/ML SYRINGE IV PRN (21:19)
[2022-12-10] MEDS: QUEtiapine FUMARATE 200 MG TAB PO SCH (22:05)
[2022-12-11] MEDS: PROMETHAZINE HCL 6.25 MG in SODIUM CHLORIDE 0.9% 50 ML IV PRN (00:40)
[2022-12-11] MEDS: CEFEPIME 2,000 MG in SYRINGE 0 ML IV SCH ×2 (01:47→10:10)
[2022-12-11] MEDS: HYDROmorphone HCL 2 MG TAB PO PRN ×3 (03:24→16:14)
[2022-12-11] MEDS: HYDROmorphone INJ 1 MG/ML SYRINGE IV PRN ×3 (03:25→16:14)
--- NOTE | 2022-12-11 03:49 | Billing Data ---
Date of Service December 11, 2022 Coding Level of Care Code 53730 INT INP/OBS CARE
--- NOTE | 2022-12-11 05:20 | Electrocardiogram Report ---
Test Reason : Blood Pressure : / mmHG Vent. Rate : 124 BPM Atrial Rate : 124 BPM P-R Int : 166 ms QRS Dur : 076 ms QT Int : 300 ms P-R-T Axes : 052 -15 040 degrees QTc Int : 431 ms Poor data quality, interpretation may be adversely affected Sinus tachycardia Premature atrial complexes Nonspecific T wave abnormality Abnormal ECG When compared with ECG of 21-MAY-2022 04:58, No significant change was found Confirmed by Franko Iniguez ([id number]) on 12/11/2022 5:19:52 AM Referred By: REFERRED SELF Confirmed By:Franko Iniguez
[2022-12-11] MEDS: GABAPENTIN 800 MG TAB PO SCH ×4 (05:44→23:40)
[2022-12-11 07:53] LABS: Hematocrit (blood only) 32.7 % (37.0-47.0); Hemoglobin 10.7 g/dl (12.0-16.0); Mean Corpuscular Hemoglobin 28.4 pg (25.0-34.0); Mean Corpuscular Hgb Conc 32.7 g/dL (32.0-36.0); Mean Corpuscular Volume 86.7 fL (80.0-100.0); Mean Platelet Volume 11.1 fL (9.4-12.4); Platelet Count 359 K/uL (130-400); RDW Coefficient of Variation 15.8 % (11.5-14.5); RDW Standard Deviation 49.8 fL (36.4-46.3); Red Blood Count 3.77 M/uL (4.20-5.40); White Blood Count 9.43 K/ul (4.8-10.8)
[2022-12-11 08:13] LABS: BUN Creatinine Ratio 10.2 (10-20); Calcium 8.2 mg/dl (8.6-10.3); Creatinine Clr Calc Pharmacy 156.4 ml/min; Est GFR (African American) 135.4 ml/min; Est GFR (Non-African American) 116.8 ml/min; Potassium 3.9 mmol/L (3.5-5.1)
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
[2022-12-11] MEDS: BACLOFEN 20 MG TAB PO PRN (08:46)
[2022-12-11] MEDS: PANTOprazole 40 MG TAB PO SCH (08:49)
[2022-12-11] MEDS: LUBIPROSTONE 8 MCG CAP PO SCH ×2 (08:50→21:03)
[2022-12-11] MEDS: VENLAFAXINE HCL 50 MG TAB PO SCH ×3 (08:50→21:05)
[2022-12-11] MEDS: ALBUT/IPRATROP 3MG/0.5MG NEB 3 ML VIAL NEB PRN (09:11)
[2022-12-11] MEDS ORDERED: ACETAMINOPHEN 325 MG TAB PO ONE (13:56)
[2022-12-11] MEDS ORDERED: cefTRIAXone SODIUM 2,000 MG in DEXTROSE 5% 50 ML IV SCH (18:00)
--- NOTE | 2022-12-11 19:19 | Billing Data ---
Date of Service December 11, 2022 Coding Level of Care Code 57675 SUB INP/OBS CARE MIN
--- NOTE | 2022-12-11 19:20 | Billing Data ---
Date of Service December 11, 2022 Coding Level of Care Code 94103 SUB INP/OBS CARE MIN
[2022-12-11] MEDS: ENOXAPARIN INJ 40 MG/0.4 ML SYR SQ SCH (21:03)
[2022-12-11] MEDS: QUEtiapine FUMARATE 200 MG TAB PO SCH (21:04)
[2022-12-12] MEDS: GABAPENTIN 800 MG TAB PO SCH ×2 (05:11→12:22)
[2022-12-12] MEDS: HYDROmorphone INJ 1 MG/ML SYRINGE IV PRN (05:12)
[2022-12-12] MEDS: HYDROmorphone HCL 2 MG TAB PO PRN ×2 (05:12→12:12)
[2022-12-12 07:34] LABS: Hematocrit (blood only) 32.9 % (37.0-47.0); Mean Corpuscular Hemoglobin 29.1 pg (25.0-34.0); Mean Corpuscular Hgb Conc 33.4 g/dL (32.0-36.0); Mean Platelet Volume 11.1 fL (9.4-12.4); Platelet Count 392 K/uL (130-400); RDW Coefficient of Variation 15.7 % (11.5-14.5); RDW Standard Deviation 49.9 fL (36.4-46.3); Red Blood Count 3.78 M/uL (4.20-5.40)
[2022-12-12 07:57] LABS: BUN Creatinine Ratio 15.7 (10-20); Calcium 8.7 mg/dl (8.6-10.3); Creatinine Clr Calc Pharmacy 150.2 ml/min; Est GFR (African American) 133.7 ml/min; Est GFR (Non-African American) 115.3 ml/min; Potassium 3.9 mmol/L (3.5-5.1)
[2022-12-12] MEDS ORDERED: VANCOMYCIN LEVEL ONE (08:30)
[2022-12-12] MEDS: PANTOprazole 40 MG TAB PO SCH (08:50)
[2022-12-12] MEDS: LUBIPROSTONE 8 MCG CAP PO SCH (08:50)
[2022-12-12] MEDS: BACLOFEN 20 MG TAB PO PRN (08:50)
[2022-12-12] MEDS: VENLAFAXINE HCL 50 MG TAB PO SCH ×2 (08:51→14:23)
[2022-12-12] MEDS: ALBUT/IPRATROP 3MG/0.5MG NEB 3 ML VIAL NEB PRN (11:00)
[2022-12-12] MEDS ORDERED: cefTRIAXone SODIUM 2,000 MG in DEXTROSE 5% 50 ML IV ONE (12:00)
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
--- NOTE | 2022-12-12 17:30 | Billing Data ---
Date of Service December 12, 2022 Coding Level of Care Code 86203 IN/OBS DISCH 30 MIN/LESS
== END 2022-12-12 16:45 | disposition home or self-care (01) | DRG 871 ==
LOC: ED 17:24 → 2N 21:00 → SUATTDRO 21:00 → 2N 22:05
DX: G89.4 Chronic pain syndrome; F41.9 Anxiety disorder, unspecified; D72.829 Elevated white blood cell count, unspecified; Z87.891 Personal history of nicotine dependence; J18.9 Pneumonia, unspecified organism; Q89.01 Asplenia (congenital); Z86.711 Personal history of pulmonary embolism; D64.9 Anemia, unspecified; Z88.5 Allergy status to narcotic agent; A41.9 Sepsis, unspecified organism; Z90.81 Acquired absence of spleen; Z79.899 Other long term (current) drug therapy

== ENCOUNTER 2022-12-14 01:18 | Inpatient (IN) ==
[2022-12-14] MEDS ORDERED: SODIUM CHLORIDE 0.9% 1000ML 1,000 ML IV ONE (01:22)
[2022-12-14] MEDS ORDERED: MAGNESIUM SULFATE / D5W 1 GM/100 ML BAG IV STA (01:29)
[2022-12-14 01:55] LABS: iSTAT Creatinine 1.1 mg/dl (0.6-1.3); iSTAT Hemoglobin 13.3 g/dl (12.0-16.0); iSTAT Ionized Calcium 1.12 mmol/l (1.12-1.32); iSTAT Potassium 3.8 mmol/L (3.3-5.0)
[2022-12-14] MEDS ORDERED: NALOXONE HCL 0.4 MG/1 ML VIAL/CARP IV STA ×2 (01:57→04:25)
[2022-12-14 02:12] LABS: iSTAT Arterial Blood Gas HCO3 27 meg/L (19-24); iSTAT Arterial Blood Gas pCO2 66 mmHg (35-46); iSTAT Arterial Blood Gas pH 7.23 (7.35-7.45); iSTAT Arterial Blood Gas pO2 37 mmHg (80-95); iSTAT Carbon Dioxide 29 mmol/L (24-31)
[2022-12-14 02:12] LABS: iSTAT Arterial Blood Gas HCO3 27 meg/L (19-24); iSTAT Arterial Blood Gas pCO2 56 mmHg (35-46); iSTAT Arterial Blood Gas pH 7.29 (7.35-7.45); iSTAT Arterial Blood Gas pO2 169 mmHg (80-95); iSTAT Carbon Dioxide 29 mmol/L (24-31)
[2022-12-14 02:15] LABS: Alanine Aminotransferase 29 U/L (7-52); Albumin Globulin Ratio 1.3 (0.9-2); Albumin Level 3.7 gm/dl (3.4-5.0); Alkaline Phosphatase 159 U/L (34-104); Anion Gap 9 (3-11); BUN Creatinine Ratio 20.2 (10-20); Bilirubin,Total 0.4 mg/dl (0.2-1.0); Blood Urea Nitrogen 19 mg/dl (6-23); Calcium 8.7 mg/dl (8.6-10.3); Carbon Dioxide 26 mmol/L (21-32); Chloride 104 mmol/L (98-107); Est GFR (African American) 84.3 ml/min; Est GFR (Non-African American) 72.8 ml/min; Globulin 2.9 gm/dl (2.5-4.0); Glucose 64 mg/dl (70-99(Fasting)); Lipase 25 U/L (11-82); Magnesium 2.2 mg/dl (1.7-2.4); Sodium 139 mmol/L (136-145); Total Protein 6.6 gm/dl (6.0-8.3)
[2022-12-14 02:21] LABS: Troponin I High Sensitivity 6.3 pg/ml (0-14)
[2022-12-14 02:26] LABS: Basophils # (auto) 0.09 K/uL (0-0.2); Eosinophils % (auto) 4.2 %; Hemoglobin 12.4 g/dl (12.0-16.0); Immature Granulocytes # (auto) 0.08 K/uL (0.01-0.20); Immature Granulocytes % (auto) 0.8 %; Lymphocytes % (auto) 53.9 %; Mean Corpuscular Hgb Conc 32.6 g/dL (32.0-36.0); Mean Corpuscular Volume 88.8 fL (80.0-100.0); Mean Platelet Volume 10.7 fL (9.4-12.4); Monocytes # (auto) 0.81 K/uL (0.11-0.59); Monocytes % (auto) 8.6 %; Neutrophils # (auto) 2.99 K/uL (1.40-6.50); Neutrophils % (auto) 31.5 %; Platelet Count 432 K/uL (130-400); Platelet Estimate Increased (Normal); RDW Coefficient of Variation 15.3 % (11.5-14.5); RDW Standard Deviation 49.3 fL (36.4-46.3); Red Blood Count 4.28 M/uL (4.20-5.40); White Blood Count 9.47 K/ul (4.8-10.8)
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
[2022-12-14 02:51] LABS: Thyroid Stimulating Hormone 10.041 uIu/ml (0.300-4.500)
[2022-12-14 03:00] LABS: Potassium 3.8 mmol/L (3.5-5.1)
[2022-12-14] MEDS ORDERED: OPTIRAY 350 100ml IV ONE (03:00)
[2022-12-14 03:24] LABS: T4 Free Thyroxine 0.61 ng/dl (0.61-1.60)
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
[2022-12-14 04:35] LABS: iSTAT Arterial Blood Gas HCO3 27 meg/L (19-24); iSTAT Arterial Blood Gas pCO2 58 mmHg (35-46); iSTAT Arterial Blood Gas pH 7.28 (7.35-7.45); iSTAT Arterial Blood Gas pO2 95 mmHg (80-95); iSTAT Carbon Dioxide 29 mmol/L (24-31)
--- NOTE | 2022-12-14 06:45 | Billing Data ---
Date of Service December 14, 2022 Coding Level of Care Code 49082 INT INP/OBS CARE
--- NOTE | 2022-12-14 06:54 | CT Scan Report ---
Exam(s): CT ABDOMEN + PELVIS With Contrast IV Amt: 84 ml optiray 350 EXAM: CT Abdomen and Pelvis With Intravenous Contrast CLINICAL HISTORY: Reason for exam: resp arrest, abd bloating. TECHNIQUE: Axial computed tomography images of the abdomen and pelvis with intravenous contrast. CTDI is 21.15 mGy and DLP is 732.01 mGy-cm. Automated exposure control was utilized for the study. A dose lowering technique was utilized adhering to the principles of ALARA. CONTRAST: Patient received 84 ml optiray 350 of IV contrast COMPARISON: No relevant prior studies available. FINDINGS: Lung bases: Patchy bilateral basilar densities could be from aspiration or pneumonia. Mediastinum: Small hiatus hernia. ABDOMEN: Liver: Unremarkable. No mass. Gallbladder and bile ducts: Unremarkable. No calcified stones. No ductal dilation. Pancreas: Unremarkable. No mass. No ductal dilation. Spleen: Unremarkable. No splenomegaly. Adrenals: Unremarkable. No mass. Kidneys and ureters: Unremarkable. No solid mass. No hydronephrosis. Stomach and bowel: Status post gastric bypass surgery. No obstruction. No mucosal thickening. PELVIS: Appendix: No findings to suggest acute appendicitis. Bladder: Unremarkable. No mass. Reproductive: Unremarkable as visualized. ABDOMEN and PELVIS: Intraperitoneal space: Unremarkable. No free air. No significant fluid collection. Bones/joints: Moderate amount of fecal matter seen in the colonic lumen. Old healed fracture deformity seen, bilateral superior and bilateral inferior pubic rami old healed fracture deformity seen in multiple left-sided ribs. No dislocation. Soft tissues: Unremarkable. Vasculature: IVC filter seen in situ. No abdominal aortic aneurysm. Lymph nodes: Unremarkable. No enlarged lymph nodes. IMPRESSION: 1. No acute abdominal process identified 2. Small left pleural effusion with bilateral basilar densities which could be from aspiration pneumonia Electronically signed by: Gera Mata MD 12/14/22 06:53 AM
--- NOTE | 2022-12-14 06:59 | CT Scan Report ---
Exam(s): CT CHEST With Contrast IV Amt: 84 ml optiray 350 EXAM: CT Chest With Intravenous Contrast CLINICAL HISTORY: Reason for exam: respiratory arrest, poss FB. TECHNIQUE: Axial computed tomography images of the chest with intravenous contrast. CTDI is 22.49 mGy and DLP is 1329.07 mGy-cm. Automated exposure control was utilized for the study. A dose lowering technique was utilized adhering to the principles of ALARA. CONTRAST: Patient received 84 ml optiray 350 of IV contrast COMPARISON: No relevant prior studies available. FINDINGS: Lungs: Patchy density seen in the dependent bilateral lower lobes and bilateral upper lobe could be from aspiration or pneumonia. 1.1 cm subpleural density in the right upper lobe on image 16, series 4 could also be of inflammatory etiology. There is focal density seen in the superior segment of the left lower lobe, measuring 1.5 cm in diameter. Pleural space: Small left pleural effusion. No pneumothorax. Heart: Unremarkable. No cardiomegaly. No significant pericardial effusion. No significant coronary artery calcifications. Bones/joints: Unremarkable. No acute fracture. No dislocation. Soft tissues: Unremarkable. Vasculature: Unremarkable. No thoracic aortic aneurysm. Lymph nodes: Unremarkable. No enlarged lymph nodes. IMPRESSION: 1. Dependent inflammatory densities in the lower and upper lobes suggestive of aspiration or pneumonia 2. Dependent focal density measuring 1.3 cm in diameter located posteriorly in the right upper lobe and in the superior segment of the left lower lobe are probably of inflammatory etiology. Follow-up imaging suggested in 6-8 weeks time for further assessment Electronically signed by: Gera Mata MD 12/14/22 06:58 AM
--- NOTE | 2022-12-14 07:06 | CT Scan Report ---
Exam(s): CT HEAD Without Contrast EXAM: CT Head Without Intravenous Contrast CLINICAL HISTORY: Reason for exam: ams. TECHNIQUE: Axial computed tomography images of the head/brain without intravenous contrast. CTDI is 37.46 mGy and DLP is 651.12 mGy-cm. Automated exposure control was utilized for the study. A dose lowering technique was utilized adhering to the principles of ALARA. COMPARISON: No relevant prior studies available. FINDINGS: Brain: Unremarkable. No hemorrhage. No significant white matter disease. No edema. Ventricles: Unremarkable. No ventriculomegaly. Bones/joints: Unremarkable. No acute fracture. Soft tissues: Unremarkable. Sinuses: Unremarkable as visualized. No acute sinusitis. Mastoid air cells: Unremarkable as visualized. No mastoid effusion. IMPRESSION: Normal head/brain CT. Electronically signed by: Gera Mata MD 12/14/22 07:05 AM
[2022-12-14 07:12] LABS: Appearance Urine Clear (Clear); Bilirubin Urine Negative (Negative); Blood Urine Negative (Negative); Color Urine Yellow; Glucose Urine UA Negative (Negative); Ketones Urine Negative (Negative); Leukocyte Esterase Urine Negative (Negative); Nitrite Urine Negative (Negative); Protein Urine Negative (Negative); Specific Gravity Urine 1.032 (1.000-1.030); Urobilinogen Urine Negative (Negative)
[2022-12-14 08:31] LABS: Amphetamines+Metham, Urine Neg (Neg); Barbiturates, Urine Neg (Neg); Benzodiazepine, Urine Neg (Neg); Cocaine, Urine Neg (Neg); MDMA (Ecstacy), Urine Neg (Neg); Methadone, Urine Neg (Neg); Opiate, Urine Pos (Neg); Phencyclidine, Urine Neg (Neg)
--- NOTE | 2022-12-14 09:04 | XRay Report ---
XR chest 1V portable HISTORY: 47 years-old Female unresponsive acutely altered mental status COMPARISON: Chest CT of same day TECHNIQUE: AP view of the chest FINDINGS: Cardiac silhouette is upper limits of normal in size. Left basilar consolidation with trace left pleu ral effusion. Chronic left-sided rib fracture deformities. Spinal stimulator leads overlie the lower thoracic spine. No pneumothorax or overt pulmonary edema. IMPRESSION: 1. Mild left basilar consolidation may represent atelectasis versus pneumonitis. 2. Chronic left-sided rib fractures. ACT 112: Negative or not required by law. The above report was generated using voice recognition software. It may contain grammatical, syntax o r spelling errors. Electronically signed by: Nathaniel Young M.D. 12/14/2022 8:39 AM
--- NOTE | 2022-12-14 10:51 | Electrocardiogram Report ---
Test Reason : Blood Pressure : / mmHG Vent. Rate : 099 BPM Atrial Rate : 099 BPM P-R Int : 162 ms QRS Dur : 078 ms QT Int : 396 ms P-R-T Axes : 038 000 032 degrees QTc Int : 508 ms Poor data quality, interpretation may be adversely affected Normal sinus rhythm Prolonged QT Abnormal ECG When compared with ECG of 09-DEC-2022 17:32, Premature atrial complexes are no longer Present Nonspecific T wave abnormality, improved in Inferior leads Confirmed by Sky Sin ([id number]) on 12/14/2022 10:51:26 AM Referred By: REFERRED SELF Confirmed By:Carlos Sin
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
[2022-12-14 11:53] LABS: Base Excess ABG 3.2 mEq/L (-9-1.8); HCO3 ABG 28 mmol/L (19-24); Oxygen Saturation ABG 98.5 % (90-95); PCO2 ABG 42 mmHg (35-46); PO2 ABG 106 mmHg (80-95); pH ABG 7.43 (7.35-7.45)
[2022-12-14 12:18] LABS: Allen Test POS (Pos)
[2022-12-14] MEDS ORDERED: HYDROmorphone HCL 2 MG TAB PO PRN (13:15)
[2022-12-14] MEDS ORDERED: HYDROmorphone INJ 1 MG/ML SYRINGE IV STA (13:19)
[2022-12-14] MEDS ORDERED: HYDROmorphone INJ 1 MG/ML SYRINGE ONE (13:29)
[2022-12-14] MEDS: HYDROmorphone INJ 1 MG/ML SYRINGE IV PRN ×3 (16:54→23:04)
[2022-12-14] MEDS: AMOXICILLIN/CLAVULANATE 875 MG TAB PO SCH (19:36)
[2022-12-14] MEDS ORDERED: ACETAMINOPHEN 500 MG TAB PO STA (19:42)
[2022-12-14] MEDS ORDERED: CEFDINIR 300 MG CAP PO SCH (21:00)
[2022-12-15] MEDS: HYDROmorphone HCL 2 MG TAB PO PRN ×2 (00:34→08:28)
[2022-12-15] MEDS: HYDROmorphone INJ 1 MG/ML SYRINGE IV PRN ×5 (02:24→15:09)
[2022-12-15 06:41] LABS: Hematocrit (blood only) 34.3 % (37.0-47.0); Hemoglobin 11.7 g/dl (12.0-16.0); Mean Corpuscular Hemoglobin 29.7 pg (25.0-34.0); Mean Corpuscular Hgb Conc 34.1 g/dL (32.0-36.0); Mean Corpuscular Volume 87.1 fL (80.0-100.0); Mean Platelet Volume 10.8 fL (9.4-12.4); Platelet Count 422 K/uL (130-400); RDW Coefficient of Variation 15.3 % (11.5-14.5); RDW Standard Deviation 48.6 fL (36.4-46.3); Red Blood Count 3.94 M/uL (4.20-5.40); White Blood Count 10.23 K/ul (4.8-10.8)
[2022-12-15 07:12] LABS: BUN Creatinine Ratio 16.4 (10-20); Calcium 8.4 mg/dl (8.6-10.3); Creatinine Clr Calc Pharmacy 139.6 ml/min; Est GFR (African American) 130.4 ml/min; Est GFR (Non-African American) 112.5 ml/min; Magnesium 1.8 mg/dl (1.7-2.4); Phosphorus 2.2 mg/dl (2.5-4.9); Potassium 3.5 mmol/L (3.5-5.1)
[2022-12-15] MEDS ORDERED: BACLOFEN 20 MG TAB PO PRN (07:48)
[2022-12-15] MEDS: AMOXICILLIN/CLAVULANATE 875 MG TAB PO SCH ×2 (07:48→16:03)
[2022-12-15] MEDS ORDERED: POTASSIUM PHOS 3 MMOL/1 ML INFUSION IV STA (07:51)
[2022-12-15] MEDS: GABAPENTIN 800 MG TAB PO SCH ×2 (08:29→13:35)
[2022-12-15] MEDS: VENLAFAXINE HCL 37.5 MG TAB PO SCH ×2 (08:29→13:35)
[2022-12-15] MEDS ORDERED: POTASSIUM PHOSPHATE 15 MMOL in SODIUM CHLORIDE 0.9% 250 ML IV ONE (08:30)
[2022-12-15] MEDS ORDERED: OPTIRAY 320 500ml IV ONE (11:06)
--- NOTE | 2022-12-15 11:26 | CT Scan Report ---
CT angio chest PE protocol CT DOSE: 441.92 mGy.cm HISTORY: 47 years-old Female with PE. Acute chest pain or shortness of breath TECHNIQUE: Multiple CTA images of the chest were obtained after the intravenous administration of 114 ml Optiray. Coronal and sagittal MIPS were obtained from the axial data set and were submitted for review. All measurements were obtained according to NASCET criteria. A dose lowering technique was u tilized adhering to the principles of ALARA. COMPARISON: Chest CT 12/14/2022. FINDINGS: CTA: Moderate cardiomegaly. No pericardial effusion. No thoracic aortic aneurysm. No pulmonary emboli iden tified. CT CHEST: Unremarkable thyroid. Subcentimeter mediastinal, hilar and axillary chain lymph nodes. No pathologica lly enlarged lymph nodes are identified. Stable small left pleural effusion. No pneumothorax. Mild br onchial wall thickening. Subsegmental linear right basilar atelectasis. Linear consolidation of the l eft lower lobe has mildly improved. No overt pulmonary edema. No suspicious pulmonary nodules or mass es. Postoperative changes of the stomach. Unremarkable soft tissues. There is a partially imaged stimulat or lead overlying the midthoracic spine with the imaged portions appearing intact. No acute fracture is identified. Chronic fracture deformity of the sternal manubrium, sternoclavicular joint and anteri or right upper ribs. IMPRESSION: 1. Cardiomegaly without pulmonary emboli identified. 2. Small left pleural effusion with persistent left greater than right bibasilar atelectasis, mildly improved. ACT 112: Negative or not required by law. The above report was generated using voice recognition software. It may contain grammatical, syntax o r spelling errors. Electronically signed by: Nathaniel Young M.D. 12/15/2022 11:25 AM
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
[2022-12-16 12:37] LABS: Codeine Urine NEGATIVE ng/mL (<50); Hydrocodone Urine NEGATIVE ng/mL (<50); Hydromor Urine 417 ng/mL (<50); Morphine Urine NEGATIVE ng/mL (<50); Norhydrocodone Conf Ur NEGATIVE ng/mL (<50); Noroxycodone Urine NEGATIVE ng/mL (<50); Oxycodone Urine NEGATIVE ng/mL (<50); Oxymorph Urine 2280 ng/mL (<50)
== END 2022-12-15 16:23 | disposition home or self-care (01) | DRG 205 ==
LOC: ED 01:18 → EDINP 05:41 → SUATTDRO 05:41 → 2E 06:55

== ENCOUNTER 2023-07-10 14:05 | Inpatient (IN) ==
--- NOTE | 2023-07-10 14:22 | ED Triage Note ---
Date of Service July 10, 2023 History of Present Illness This patient was briefly evaluated while in triage. An abbreviated physical exam was performed. This patient is a 47-year-old Female who presents to the ED for evaluation of woke up overnight to go to the bathroom-sat on the toilet x 4 hours because she fell asleep when SO got to her, her right leg was weak, and "asleep all the way to the groin" leg gives out on her when walking with a walker numb, tingly, painful, decreased ROM Physical Exam GENERAL: NAD in WC CARDIOVASCULAR: RRR RESPIRATORY: CTA EXT: Examination of the right lower extremity reveals no obvious deformity. Mildly cool to touch but there is capillary refill and easily palpable distal pulses. She can dorsiflex and plantarflex the ankle. Patellar reflexes are 2+ bilaterally. Initial orders for labs and / or imaging were placed and patient was placed in the waiting area until a bed is available. Please see further documentation for the full ED course. MDM / Impression Impression Impression: Numbness and tingling of right leg, Leukocytosis, Ambulatory dysfunction, Transaminitis, TOÑO (acute kidney injury)
[2023-07-10 15:13] LABS: Basophils # (auto) 0.06 K/uL (0.00-0.20); Basophils % (auto) 0.5 %; Eosinophils # (auto) 0.07 K/uL (0.00-0.50); Eosinophils % (auto) 0.6 %; Hematocrit (blood only) 41.2 % (37.0-47.0); Hemoglobin 13.7 g/dl (12.0-16.0); Immature Granulocytes # (auto) 0.05 K/uL (0.01-0.20); Immature Granulocytes % (auto) 0.4 %; Lymphocytes # (auto) 2.82 K/uL (1.20-3.40); Lymphocytes % (auto) 23.1 %; Mean Corpuscular Hgb Conc 33.3 g/dL (32.0-36.0); Mean Corpuscular Volume 84.3 fL (80.0-100.0); Mean Platelet Volume 10.8 fL (9.4-12.4); Monocytes # (auto) 0.95 K/uL (0.11-0.59); Monocytes % (auto) 7.8 %; Neutrophils # (auto) 8.28 K/uL (1.40-6.50); Neutrophils % (auto) 67.6 %; Platelet Count 435 K/uL (130-400); RDW Standard Deviation 51.8 fL (36.4-46.3); Red Blood Count 4.89 M/uL (4.20-5.40); White Blood Count 12.23 K/ul (4.8-10.8)
[2023-07-10 15:21] LABS: Prothrombin Time 10.5 Seconds (9.0-12.0)
[2023-07-10 15:29] LABS: Alanine Aminotransferase 265 U/L (7-52); Albumin Globulin Ratio 1.4 (0.9-2); Albumin Level 3.9 gm/dl (3.4-5.0); Alkaline Phosphatase 354 U/L (34-104); Anion Gap 10 (3-11); Aspartate Aminotransferase 513 U/L (13-39); BUN Creatinine Ratio 20.7 (10-20); Bilirubin,Total 0.4 mg/dl (0.2-1.0); Blood Urea Nitrogen 29 mg/dl (6-23); Calcium 8.4 mg/dl (8.6-10.3); Carbon Dioxide 25 mmol/L (21-32); Chloride 103 mmol/L (98-107); Est GFR (African American) 52.1 ml/min; Est GFR (Non-African American) 44.9 ml/min; Globulin 2.7 gm/dl (2.5-4.0); Glucose 106 mg/dl (70-99(Fasting)); Potassium 3.8 mmol/L (3.5-5.1); Sodium 138 mmol/L (136-145); Total Protein 6.6 gm/dl (6.0-8.3)
--- NOTE | 2023-07-10 17:05 | Ultrasound Report ---
RIGHT LOWER EXTREMITY VENOUS DOPPLER HISTORY: RIGHT LEG NUMB/TINGLING COMPARISON STUDY: None. FINDINGS: There is normal compressibility, flow, and augmentation within the right lower extremity de ep venous system. IMPRESSION: No DVT within the right lower extremity ACT 112: Negative or not required by law. Electronically signed by: William Gimenez M.D. 07/10/2023 5:04 PM
--- NOTE | 2023-07-10 17:06 | Ultrasound Report ---
US arterial duplex right lower extremity CLINICAL HISTORY: right leg numb/tingling COMPARISON STUDY: None. FINDINGS: Normal triphasic to biphasic waveforms and velocities within the right lower extremity julio rial system. No areas of significant stenosis or occlusion. IMPRESSION: No significant stenosis or occlusion within the right lower extremity arterial system. ACT 112: Negative or not required by law. Electronically signed by: William Gimenez M.D. 07/10/2023 5:05 PM
[2023-07-10] MEDS ORDERED: HYDROmorphone INJ 0.5 MG/0.5 ML SYR IV STA ×2 (18:38→23:27)
--- NOTE | 2023-07-10 18:42 | Emergency Department Note ---
Impression & Plan Numbness and tingling of right leg, Leukocytosis, Ambulatory dysfunction, Transaminitis, TOÑO (acute kidney injury) ED Provider Note HISTORY OF PRESENT ILLNESS: Patient is a 47-year-old female presenting with right groin pain and right leg pain. Patient reports that she takes Seroquel and last night took her regular dose and got up to go to the bathroom at 2:30 in the morning, but reportedly fell asleep while on the commode. She states that she woke up on the commode 4 hours later and attempted to get up, but ended up falling forward secondary to her right leg being and not being able to feel it. Her had to help her up off the floor. She was unable to ambulate secondary to her leg feeling "feels like gumby." States that she has had significant pain in her right groin. Reports that her right leg was white and very cold to the touch. Denies any DVT or PE history. She is not on a blood thinner. She follows with pain management and is prescribed Dilaudid and oxymorphone. Patient denies any bowel or bladder incontinence. On assessment in the emergency department, the patient reports that her right groin is still significantly painful and she is having numbness and tingling down her leg. Reports that the posterior pelvis and her lower lumbar spine are very uncomfortable. She denies falling and landing on her hips. ROS: as above PHYSICAL EXAM: Constitutional: Patient appears in no acute distress. HENT: Head: Normocephalic and atraumatic. Eyes: EOMI, PERRL Mouth/Throat: Mucous membranes moist. Neck: Trachea midline. Neck supple. Back: No midline spinal tenderness, no paraspinal tenderness, no CVA tenderness. Patient is able to straight leg raise bilaterally. Musculoskeletal: No edema, tenderness or deformity noted. Skin: Warm and dry. No rash, erythema, pallor or cyanosis Psychiatric: Appropriate mood and affect for situation. Neurological: Alert and keenly responsive. CN II-XII grossly intact, moving all extremities equally and fully. MDM: - Vitals signs showed hypertension and tachycardia. - History obtained via patient. Patient presents with right groin pain and right leg pain. Patient reports that she took her Seroquel last night and got up to go to the bathroom at 2:30 AM and subsequently fell asleep on the commode. She was on the commode for over 4 hours when she attempted to get up but ended up falling onto her bilateral knees when she stood up secondary to numbness and pain in her right leg. Reports has been having continued numbness and tingling down the right leg and significant pain in her right groin throughout the day today. She is not on any anticoagulation. Denies any bowel or bladder incontinence. She denies any dysuria or hematuria. - Chronic conditions affecting care: chronic pain syndrome - Differential diagnoses include, but are not limited to: Neuropathic pain; arterial vascular injury; DVT; dehydration - Order placed for continuous cardiac monitoring. At this time, monitor showed rate of 115 bpm with normal sinus rhythm, per my interpretation. - External medical records reviewed. PDMP was reviewed. Patient is prescribed oxymorphone and Dilaudid. - Laboratory workup interpreted by myself showed leukocytosis (WBC 12.23); stable electrolytes; TOÑO (Cr 1.4); transaminitis (AST 513; ALT 265) - US DVT of RLE ordered via triage was negative for DVT. Arterial US of RLE ordered via triage was negative for arterial occlusion. - Patient given 0.5 mg IV dilaudid and 1L NS in ER. - CT pelvis wo contrast negative for acute pathology. - Considered CT abdomen/pelvis, but patient has no reproducible abdominal pain on assessment. - She is still complaining of numbness down her right leg. Unclear etiology, as story sounds concerning for possible nerve compression from being seated on the commode for so long. She is unable to get up and walk in the ER. - Discussion was had with care clinician about patient's case and need for admission - Hospitalist consulted for admission - Patient admitted to [facility] service for further evaluation and management. ASSESSMENT AND PLAN: Diagnosis: Right leg numbness; transaminitis; TOÑO; leukocytosis; ambulatory dysfunction Plan: admit Past Med/Surg History Medical History Anxiety Chronic pain COVID Depression Epilepsy Silvina filter in place Hx of blood clots Left wrist injury Metal plates in left arm Migraine with aura and without status migrainosus Osteoarthritis Pulmonary embolism Recurrent infections Recurrent pneumonia Seizures Spinal cord stimulator status Surgical History H/O shoulder surgery H/O splenectomy History of cholecystectomy History of evacuation of hematoma History of surgery on arm S/P gastric bypass S/P hernia surgery Family History Mother Diabetes Hypertension Family/Other Diabetes Father Pancreatic cancer Brother Diabetes Hypertension Social History Smoking Status: Unknown if ever smoked Tobacco Type: Cigarettes Cigarettes Per Day: 1 cigareette here and there for 20 years; Second Hand Exposure: No; Do You Dip or Chew Tobacco: No; Hx Alcohol Use: Yes Alcohol type: hard liquor Hx Substance Use: No Preferred Language: Belarusian Communication Ability: Effective Communication Ability Comment: Pt giving limited responses Visual Impairment: No Limitations Pharmacy Affairs Assistant Required: No Beliefs That Will Affect Care: None marital status: Current Living Situation: Spouse and Parent Current Living Situation Comment: Lives at home with , provided information current occupational status: disabled Feels Safe at Home: Yes Diet: regular during the past year weight has: remained stable Assistive Devices: Cane Allergies Allergies Allergy/AdvReac Type Severity Reaction Status Date / Time morphine Allergy Intermediate ITCHING Verified 07/10/23 19:19 oxycodone [From OxyContin] AdvReac Intermediate low bp Verified 07/10/23 19:19 Home Meds Home Medications Medication Instructions Recorded Confirmed baclofen 20 mg tablet 20 mg PO TID PRN Muscle Spasm #30 04/05/19 07/10/23 tabs gabapentin 800 mg tablet 800 mg PO Q6 04/05/19 07/10/23 hydromorphone 2 mg tablet 1 mg PO Q8H PRN Pain 04/05/19 07/10/23 lubiprostone 24 mcg capsule 24 mcg PO BID 04/05/19 07/10/23 (Amitiza) multivitamin (Multiple Vitamins 1 tab PO DAILY 04/05/19 07/10/23 tablet) cholecalciferol (vitamin D3) 50 2,000 mcg PO DAILY 01/29/20 07/10/23 mcg (2,000 unit) tablet (Vitamin D3) oxymorphone 5 mg tablet 7.5 mg PO Q8 PRN Pain 01/29/20 07/10/23 venlafaxine 75 mg tablet 75 mg PO TID 03/12/22 07/10/23 quetiapine 400 mg tablet 400 mg PO HS 12/09/22 07/10/23 Previous Rx's Medication Instructions Recorded promethazine 25 mg tablet 25 mg PO Q6H PRN nausea and 03/24/21 vomiting #6 tabs albuterol sulfate 90 mcg/actuation 2 inh inhalation Q6H PRN shortness 12/12/22 aerosol inhaler of breath or wheezing #8.5 grams naloxone 4 mg/actuation nasal 4 mg intranasal ONCE PRN opioid 12/15/22 spray (Narcan) overdose #2 ea Results & Data (ED) Vital Signs Vital Signs - 24 hr 07/10/23 14:20 07/10/23 20:12 07/10/23 20:15 Temperature 36.6 C Temperature Source Temporal Artery Scan Pulse Rate 131 H 114 H Pulse Rate [Apical] 130 H Respiratory Rate 20 24 Respiratory Effort / Characteristics Non-Labored Non-Labored Spontaneous Respiratory Depth Normal Normal Respiratory Pattern Regular Blood Pressure 160/94 H Blood Pressure [Left Arm] 166/100 H Blood Pressure Mean 116 Blood Pressure Mean [Left Arm] 122 Pulse Oximetry 97 93 Oxygen Delivery Method Room Air Room Air Sepsis Recent Fever Within 48 Hours No Sepsis New/Unexplained Change in Mental Status No Sepsis Action Taken by Nursing No Action Required Laboratory Data 07/10/23 14:40 07/10/23 14:40 Lab Results 07/10/23 Range/Units 14:40 WBC 12.23 H (4.8-10.8) K/ul RBC 4.89 (4.20-5.40) M/uL Hgb 13.7 (12.0-16.0) g/dl Hct 41.2 (37.0-47.0) % MCV 84.3 (80.0-100.0) fL MCH 28.0 (25.0-34.0) pg MCHC 33.3 (32.0-36.0) g/dL RDW Std Deviation 51.8 H (36.4-46.3) fL RDW Coeff of Jeffrey 17.0 H (11.5-14.5) % Plt Count 435 H (130-400) K/uL MPV 10.8 (9.4-12.4) fL Immature Gran % (Auto) 0.4 % Neut % (Auto) 67.6 % Lymph % (Auto) 23.1 % [place] % (Auto) 7.8 % Eos % (Auto) 0.6 % Baso % (Auto) 0.5 % Neut # (Auto) 8.28 H (1.40-6.50) K/uL Lymph # (Auto) 2.82 (1.20-3.40) K/uL [place] # (Auto) 0.95 H (0.11-0.59) K/uL Eos # (Auto) 0.07 (0.00-0.50) K/uL Baso # (Auto) 0.06 (0.00-0.20) K/uL Immature Gran # (Auto) 0.05 (0.01-0.20) K/uL PT 10.5 (9.0-12.0) Seconds INR 1.0 (0.9-1.1) Sodium 138 (136-145) mmol/L Potassium 3.8 (3.5-5.1) mmol/L Chloride 103 (98-107) mmol/L Carbon Dioxide 25 (21-32) mmol/L Anion Gap 10 (3-11) BUN 29 H (6-23) mg/dl Creatinine 1.40 H (0.6-1.2) mg/dl Est Cr Clr Drug Dosing Not Reportable Est GFR ( Amer) 52.1 ml/min Est GFR (Non-Af Amer) 44.9 ml/min BUN/Creatinine Ratio 20.7 H (10-20) Glucose 106 H (70-99(Fasting)) mg/dl Calcium 8.4 L (8.6-10.3) mg/dl Total Bilirubin 0.4 (0.2-1.0) mg/dl AST 513 H (13-39) U/L ALT 265 H (7-52) U/L Alkaline Phosphatase 354 H (34-104) U/L Total Protein 6.6 (6.0-8.3) gm/dl Albumin 3.9 (3.4-5.0) gm/dl Globulin 2.7 (2.5-4.0) gm/dl Albumin/Globulin Ratio 1.4 (0.9-2) TSH 1.160 (0.300-4.500) uIu/ml Administered Medications Discontinued Medications Hydromorphone HCl (Hydromorphone Inj 0.5 Mg/0.5 Ml Syr) 0.5 mg IV NOW STA Stop: 07/10/23 18:39 Last Admin: 07/10/23 18:57 Dose: 0.5 mg Documented By: RODRIGO Sodium Chloride (Nss) 1,000 mls @ 999 mls/hr IV .Q1H1M ONE Stop: 07/10/23 21:20 Last Infusion: 07/10/23 21:02 Dose: 0 mls/hr Documented By: Admin: 07/10/23 20:54 Dose: 999 mls/hr Documented By: CHENCHO Imaging Data Radiologist's Impression: Duplex Scan Lower Extremity Artery 07/10/23 14:28 US arterial duplex right lower extremity CLINICAL HISTORY: right leg numb/tingling COMPARISON STUDY: None. FINDINGS: Normal triphasic to biphasic waveforms and velocities within the right lower extremity arterial system. No areas of significant stenosis or occlusion. IMPRESSION: No significant stenosis or occlusion within the right lower extremity arterial system. ACT 112: Negative or not required by law. Electronically signed by: William Gimenez M.D. 07/10/2023 5:05 PM Venous Doppler Study 07/10/23 14:28 RIGHT LOWER EXTREMITY VENOUS DOPPLER HISTORY: RIGHT LEG NUMB/TINGLING COMPARISON STUDY: None. FINDINGS: There is normal compressibility, flow, and augmentation within the right lower extremity deep venous system. IMPRESSION: No DVT within the right lower extremity ACT 112: Negative or not required by law. Electronically signed by: William Gimenez M.D. 07/10/2023 5:[address] 07/10/23 18:[address] DOSE: 909.72 mGy.cm HISTORY: Right leg pain. right leg pain/numbess; posterior pelvic pain TECHNIQUE: Multiaxial CT images of the pelvis were performed and reformatted in the sagittal and coronal plane without the use of contrast. A dose lowering technique was utilized adhering to the principles of ALARA. COMPARISON STUDY: Abdomen and pelvis CT 12/14/2022. FINDINGS: There are old, healed fractures involving the bilateral pubic rami and left sacrum. This results in fusion of the left sacroiliac joint and symphysis pubis. No acute fracture or dislocation within the pelvis or hips. Linear scarlike density within the left gluteal subcutaneous fat. No pelvic hematoma identified. The bladder is decompressed but appears unremarkable. The uterus and bilateral adnexa are within normal limits. No pelvic free fluid. The visualized loops of bowel show no wall thickening or obstruction. Suture material within the small bowel is noted. Normal appendix. IMPRESSION: 1. No acute fracture or dislocation within the pelvis or hips. 2. Old, healed pelvic bone fractures are again noted. ACT 112: Negative or not required by law. Electronically signed by: William Gimenez M.D. 07/10/2023 8:04 PM Discharge Plan Visit Data Chief Complaint: Weakness Stated Complaint: LOWER EXTREMITY WEAKNESS, PAIN, DIFF MOVING ED Provider: Olivia Moncada Discharge Problem: Numbness and tingling of right leg, Leukocytosis, Ambulatory dysfunction, Transaminitis, TOÑO (acute kidney injury) Forms Stand Alone Forms: [facility] [employer] Prescriptions Prescriptions: No Action lubiprostone [Amitiza] 24 mcg capsule 24 mcg PO BID baclofen 20 mg tablet 20 mg PO TID PRN (Reason: Muscle Spasm) Qty: 30 gabapentin 800 mg tablet 800 mg PO Q6 hydromorphone 2 mg tablet 1 mg PO Q8H PRN (Reason: Pain) multivitamin [Multiple Vitamins] tablet 1 tab PO DAILY cholecalciferol (vitamin D3) [Vitamin D3] 50 mcg (2,000 unit) tablet 2,000 mcg PO DAILY oxymorphone 5 mg tablet 7.5 mg PO Q8 PRN (Reason: Pain) Rx Instructions: 1 and 1/2 tablet dose promethazine 25 mg Tablet 25 mg PO Q6H PRN (Reason: nausea and vomiting) Qty: 6 0RF quetiapine 400 mg tablet 400 mg PO HS albuterol sulfate 90 mcg/actuation HFA aerosol inhaler 2 inh inhalation Q6H PRN (Reason: shortness of breath or wheezing) Qty: 8.5 0RF venlafaxine 75 mg Tablet 75 mg PO TID naloxone [Narcan] 4 mg/actuation spray,non-aerosol 4 mg intranasal ONCE PRN (Reason: opioid overdose) Qty: 2 2RF Referrals Referrals: Scarlet Mendoza PA-C [Primary Care Provider] -
--- NOTE | 2023-07-10 20:07 | CT Scan Report ---
PELVIS CT CT DOSE: 909.72 mGy.cm HISTORY: Right leg pain. right leg pain/numbess; posterior pelvic pain TECHNIQUE: Multiaxial CT images of the pelvis were performed and reformatted in the sagittal and nichelle nal plane without the use of contrast. A dose lowering technique was utilized adhering to the princi ples of JENIFER. COMPARISON STUDY: Abdomen and pelvis CT 12/14/2022. FINDINGS: There are old, healed fractures involving the bilateral pubic rami and left sacrum. This re sults in fusion of the left sacroiliac joint and symphysis pubis. No acute fracture or dislocation wi thin the pelvis or hips. Linear scarlike density within the left gluteal subcutaneous fat. No pelvic hematoma identified. The bladder is decompressed but appears unremarkable. The uterus and bilateral a dnexa are within normal limits. No pelvic free fluid. The visualized loops of bowel show no wall thic kening or obstruction. Suture material within the small bowel is noted. Normal appendix. IMPRESSION: 1. No acute fracture or dislocation within the pelvis or hips. 2. Old, healed pelvic bone fractures are again noted. ACT 112: Negative or not required by law. Electronically signed by: William Gimenez M.D. 07/10/2023 8:04 PM
[2023-07-10] MEDS ORDERED: SODIUM CHLORIDE 0.9% 1,000 ML IV ONE ×2 (20:20→21:42)
[2023-07-10 22:34] LABS: Appearance Urine Cloudy (Clear); Bacteria Urine Automated Negative (Negative); Bilirubin Urine Negative (Negative); Blood Urine 3+ (Negative); Color Urine Orange; Glucose Urine UA Negative (Negative); Ketones Urine Negative (Negative); Leukocyte Esterase Urine Negative (Negative); Nitrite Urine Negative (Negative); Protein Urine 2+ (Negative); RBC Urine Automated 0-4 /hpf (0-4); Urobilinogen Urine Negative (Negative); pH Urine 5.5 (4.5-7.5)
[2023-07-10 22:56] LABS: Creatine Kinase 28219 U/L (26-192)
[2023-07-10] MEDS ORDERED: LACTATED RINGER'S 1,000 ML IV SCH (23:30)
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
[2023-07-11] MEDS ORDERED: PROMETHAZINE HCL 25 MG TAB PO PRN (01:02)
[2023-07-11] MEDS ORDERED: NALOXONE NASAL SPRAY 4 MG ER HOMEPACK PRN (01:02)
[2023-07-11] MEDS ORDERED: ALBUTEROL HFA 8 GM INHALER INH PRN (01:02)
[2023-07-11] MEDS ORDERED: HYDROmorphone HCL 2 MG TAB PO PRN (01:02)
[2023-07-11] MEDS: LACTATED RINGER'S 1,000 ML IV SCH ×5 (02:04→23:04)
[2023-07-11] MEDS ORDERED: oxyCODONE HCL IR 5 MG TAB (IMMEDIATE RELEASE) PO PRN (02:06)
[2023-07-11] MEDS: HYDROmorphone INJ 0.5 MG/0.5 ML SYR IV PRN ×7 (03:19→22:20)
[2023-07-11] MEDS: GABAPENTIN 800 MG TAB PO SCH ×5 (04:22→23:06)
[2023-07-11] MEDS: LUBIPROSTONE 8 MCG CAP PO SCH ×3 (04:23→23:05)
[2023-07-11 04:58] LABS: Hematocrit (blood only) 37.9 % (37.0-47.0); Hemoglobin 12.3 g/dl (12.0-16.0); Mean Corpuscular Hemoglobin 27.9 pg (25.0-34.0); Mean Corpuscular Hgb Conc 32.5 g/dL (32.0-36.0); Mean Corpuscular Volume 85.9 fL (80.0-100.0); Mean Platelet Volume 11.2 fL (9.4-12.4); Platelet Count 376 K/uL (130-400); RDW Coefficient of Variation 16.3 % (11.5-14.5); RDW Standard Deviation 50.9 fL (36.4-46.3); Red Blood Count 4.41 M/uL (4.20-5.40); White Blood Count 11.54 K/ul (4.8-10.8)
[2023-07-11 05:08] LABS: Albumin Globulin Ratio 1.5 (0.9-2); Albumin Level 3.4 gm/dl (3.4-5.0); BUN Creatinine Ratio 17.9 (10-20); Bilirubin,Total 0.6 mg/dl (0.2-1.0); Calcium 8.2 mg/dl (8.6-10.3); Est GFR (African American) 49.9 ml/min; Est GFR (Non-African American) 43.1 ml/min; Globulin 2.3 gm/dl (2.5-4.0); Magnesium 1.8 mg/dl (1.7-2.4); Phosphorus 3.2 mg/dl (2.5-4.9); Potassium 3.9 mmol/L (3.5-5.1); Total Protein 5.7 gm/dl (6.0-8.3)
--- NOTE | 2023-07-11 05:32 | Billing Data ---
Date of Service July 11, 2023 Coding Level of Care Code 58476 INT INP/OBS CARE
[2023-07-11] MEDS: MULTIVITAMIN TAB PO SCH (08:28)
[2023-07-11] MEDS: ENOXAPARIN INJ 40 MG/0.4 ML SYR SQ SCH (08:29)
[2023-07-11] MEDS: CHOLECALCIFEROL 1,000 UNITS 25 MCG TAB PO SCH (08:29)
[2023-07-11] MEDS: VENLAFAXINE HCL 37.5 MG TAB PO SCH ×3 (08:29→23:06)
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
[2023-07-11] MEDS: QUEtiapine FUMARATE 200 MG TAB PO SCH (23:05)
[2023-07-11] MEDS: BACLOFEN 20 MG TAB PO PRN (23:08)
[2023-07-12] MEDS: HYDROmorphone INJ 0.5 MG/0.5 ML SYR IV PRN ×6 (03:20→21:59)
[2023-07-12] MEDS: LACTATED RINGER'S 1,000 ML IV SCH ×3 (03:22→13:22)
[2023-07-12 08:05] LABS: Hematocrit (blood only) 30.9 % (37.0-47.0); Hemoglobin 10.1 g/dl (12.0-16.0); Mean Corpuscular Hemoglobin 27.7 pg (25.0-34.0); Mean Corpuscular Hgb Conc 32.7 g/dL (32.0-36.0); Mean Corpuscular Volume 84.7 fL (80.0-100.0); Platelet Count 323 K/uL (130-400); RDW Coefficient of Variation 16.3 % (11.5-14.5); RDW Standard Deviation 50.4 fL (36.4-46.3); Red Blood Count 3.65 M/uL (4.20-5.40); White Blood Count 8.23 K/ul (4.8-10.8)
[2023-07-12 08:16] LABS: Albumin Globulin Ratio 1.4 (0.9-2); Albumin Level 2.8 gm/dl (3.4-5.0); BUN Creatinine Ratio 15.1 (10-20); Bilirubin,Total 0.5 mg/dl (0.2-1.0); Calcium 8.6 mg/dl (8.6-10.3); Est GFR (African American) 59.2 ml/min; Est GFR (Non-African American) 51.1 ml/min; Magnesium 1.9 mg/dl (1.7-2.4); Phosphorus 4.1 mg/dl (2.5-4.9); Total Protein 4.8 gm/dl (6.0-8.3)
[2023-07-12] MEDS: MULTIVITAMIN TAB PO SCH (10:07)
[2023-07-12] MEDS: CHOLECALCIFEROL 1,000 UNITS 25 MCG TAB PO SCH (10:07)
[2023-07-12] MEDS: VENLAFAXINE HCL 37.5 MG TAB PO SCH ×3 (10:07→21:11)
[2023-07-12] MEDS: GABAPENTIN 800 MG TAB PO SCH ×3 (10:07→17:36)
[2023-07-12] MEDS: LUBIPROSTONE 8 MCG CAP PO SCH ×2 (10:08→21:11)
[2023-07-12] MEDS: ENOXAPARIN INJ 40 MG/0.4 ML SYR SQ SCH (10:08)
[2023-07-12] MEDS: MoRPHine SULFATE IR 15 MG TAB (IMMEDIATE RELEASE) PO SCH ×2 (13:22→21:10)
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
[2023-07-12] MEDS: QUEtiapine FUMARATE 200 MG TAB PO SCH (21:10)
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
--- OUTSIDE RECORDS SUMMARY | 2023-07-12 23:12 | External Medical Summary | Summary of Care ---
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 Oxycodone Hcl Other (Please comment) High 02/12/2010 Reports hypotension, diaphoretic, nausea, pale after taking oxycontin documented as of this encounter (statuses as of 02/28/2023) Medications Medication Sig Dispensed Refills Start Date End Date Status FLINTSTONES PLUS CALCIUM PO CHEW None Entered 0 Active CALCIUM CITRATE-VITAMIN D 500-400 MG-UNIT PO CHEWIndications:Intest inal postoperative nonabsorption 1 TABLET TWICE DAILY 60 Tab 5 07/12/2011 Active QUEtiapine (SEROQUEL) 300 MG Tablet Take 1 Tab by mouth at bedtime. 0 Active venlafaxine (EFFEXOR) 75 MG Tablet Take 1 Tab by mouth 4 times a day. 0 Active Lactobacillus (FLORANEX) TABS Take 1 Each by mouth 3 times a day. 0 06/02/2015 Active valACYclovir (VALTREX) 1000 MG TabletIndications:Herp es labialis Take 2 Tabs by mouth every 12 hours. For 1 day for cold sores 4 Tab 0 10/21/2015 Active Gabapentin (NEURONTIN) 800 MG Tablet Take 800 mg by mouth 4 times a day. 0 Active TiZANidine HCl (ZANAFLEX) 6 MG CAPS Take 6 mg by mouth 4 times a day. 0 Active HYDROmorphone (DILAUDID) 2 MG Tablet Take 2 mg by mouth 4 times a day. 0 Active HYDROmorphone HCl ER 12 MG T24A Take 12 mg by mouth 2 times a day. 0 Active traZODone (DESYREL) 100 MG Tablet Take 100 mg by mouth at bedtime. 0 Active levothyroxine (LEVOXYL) 25 MCG Tablet Take 25 mcg by mouth daily first thing in the morning. (at least 30 min prior to breakfast or other meds) 0 Active ondansetron ODT (ZOFRAN ODT) [address] 1 Tab on tongue every 8 hours as needed for Nausea. dissolve on tongue. 10 Tab 1 12/06/2016 Active documented as of this encounter (statuses as of 02/28/2023) Active Problems Problem Noted Date Chronic pain syndrome 07/09/2015 HERPES SIMPLEX NOS--cold sore 06/25/2011 Intestinal postoperative nonabsorption 0 05/28/2011 [facility] OTHER*[id number] 1 Metabolic syndrome 01/05/2011 Generalized osteoarthritis 01/05/2011 Overview: DJD of Back DM type 2, not at goal 10/16/2010 Severe obesity with body mas s index (BMI) of 35.0 to 39.9 with serious comorbidity 10/12/2010 Overview: ICD-10 update of inactive diagnosis High triglycerides 10/12/2010 Impaired fasting glucose 10/12/2010 Chronic cholecystitis 02/12/2010 Lumbago 01/07/2010 Closed fracture of unspecifi ed part of vertebral column without mention of spinal cord injury 01/07/2010 Polyneuropathy in other diseases classif ied elsewhere 01/07/2010 Major depressive disorder 09/26/2002 Overview: ICD-10 update of inactive term documented as of this encounter (statuses as of 02/28/2023) Resolved Problems Problem Noted Date Resolved Date Obesity, Class II, BMI 35-39.9, isolated (see ac tual BMI) 02/09/2010 10/12/2010 Overview: Per Obesity Protocol, #19 documented as of this encounter (statuses as of 02/28/2023) Immunizations Name Administration Dates Next Due Pneumococcal Conjugate Vacc, 13 Valent (Prevnar) 06/11/2015 Pneumococcal Polysaccharide PPV23 (Pneumovax) 11/27/2008 Seasonal Influenza, Split, I IV3, With Preserve, Inj 04/28/2016,05/30/2015,05/22/2013,05/16,06/25/2011,10/16/2010 TDAP (age 11 and older)(Adacel) 11/27/2008 documented as of this encounter Social History Tobacco Use Types Packs/Day Years Used Date Smoking Tobacco: Some Days Cigarettes 12 Last attempted to quit: 08/29/2006 Smokeless Tobacco: Never Alcohol Use Standard Drinks/Week Comments No 0 (1 standard drink = 0.6 oz pur e alcohol) Sex Assigned at Date Recorded Not on file documented as of this encounter Plan of Treatment Scheduled Orders Name Type Priority Associated Diagnoses Orde r Schedule MYCODE INITIAL ADULT Lab Routine My[facility] Research Other*[id number] Expected: 02/28/2023 (Approximate), Expires: 03/19/2024 Health Maintenance Due Date Last Done Comments DISCUSS TOBACCO CESSATION (REFER TO SMARTSET #3290) 1975 Hepatitis B (1 of 3 - 3-dose series) 1975 COVID-19 Vaccine (#1) 04/22/1977 DIABETES-EYE EXAM 01/03/2013 01/04/2012 (No t indicated) DIABETES-FOOT EXAM 05/21/2014 05/21/2013, 0 01/04/2012 (Not indicated), 01/04/2012, Additional history exists Albumin/Creatinine Ratio 06/01/2014 013, 01/04/2012 (Not indicated), 02/12/2008 GFR 06/25/2016 06/25/2015, 09/2014, 07/15/2014, Additional history exists Depression Screening, Annual for Pts 12 and Over 10/21/2016 10/21/2015 Mammogram 2016 06/12/2013, 11/06/2012 Pap Smear 01/03/2017 01/04/2012, 03/2010, 12/04/2009, Additional history exists HbA1c 01/10/2017 07/13/2016, 09/2014, 06/01/2013, Additional history exists TSH 07/13/2017 07/13/2016, 04/2016, 03/20/2015, Additional history exists DTaP,Tdap,and Td Vaccines (2 - Td or Tdap) 11/27/2018 11/27/2008 Lipid Panel 07/13/2021 07/13/2016, 09/2014, 10/28/2014, Additional history exists Cologuard 2021 Colonoscopy 2021 Colorectal Cancer Screening 2021 Fecal Occult Blood Test 2021 Sigmoidoscopy 2021 Influenza Vaccine (FLU shot) (Season Ended) 2023 04/28/2016, 05/30/2015, 05/22/2013, Additional history exists Pneumococcal Vaccine: Pediatrics (0 to 5 Years) and At-Risk Patients (6 to 64 Years) (3 - PPSV23 if available, else PCV20) 2041 06/11/2015, 11/27/2008 Hepatitis C Screening Completed 05/22/2013 GARDASIL-HPV IMMUNIZATION SERIES Aged Out No longer eligible based on patient's age to complete this topic MENINGOCOCCAL (MENACTRA/MENVEO) Aged Out No longer eligible based on patient's age to complete this topic documented as of this encounter Medical Devices Not on filedocumented as of this encounter Visit Diagnoses Diagnosis MyCode Research Other*[id number] documented in this encounter Advance Directives Latest Code Status on File Code Status Date Activated Date Inactivated Comments Full Code 05/20/2011 4:58 PM 05/23/2011 3:35 PM This order reflects the patients wishes and were consensually agreed upon. Question Answer Comments Discussion of Advance Directives occurred with: Not Discussed Does the patient have a Living Will? 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 No Code Status History Code Status Date Activated Date Inactivated Comments Full Code 05/20/2011 12:17 PM 05/20/2011 4:58 PM This order reflects the patients wishes and were consensually agreed upon.
[2023-07-13] MEDS: GABAPENTIN 800 MG TAB PO SCH ×5 (00:22→23:28)
[2023-07-13] MEDS: LACTATED RINGER'S 1,000 ML IV SCH ×3 (00:23→20:11)
[2023-07-13] MEDS: HYDROmorphone INJ 0.5 MG/0.5 ML SYR IV PRN ×7 (02:32→23:28)
[2023-07-13] MEDS: MoRPHine SULFATE IR 15 MG TAB (IMMEDIATE RELEASE) PO SCH ×3 (05:34→22:00)
[2023-07-13 06:29] LABS: Hematocrit (blood only) 31.8 % (37.0-47.0); Hemoglobin 10.6 g/dl (12.0-16.0); Mean Corpuscular Hemoglobin 28.3 pg (25.0-34.0); Mean Corpuscular Hgb Conc 33.3 g/dL (32.0-36.0); Mean Corpuscular Volume 84.8 fL (80.0-100.0); Platelet Count 338 K/uL (130-400); RDW Coefficient of Variation 16.4 % (11.5-14.5); RDW Standard Deviation 50.5 fL (36.4-46.3); Red Blood Count 3.75 M/uL (4.20-5.40); White Blood Count 10.06 K/ul (4.8-10.8)
[2023-07-13 06:53] LABS: Albumin Globulin Ratio 1.4 (0.9-2); BUN Creatinine Ratio 14.6 (10-20); Bilirubin,Total 0.4 mg/dl (0.2-1.0); Calcium 8.8 mg/dl (8.6-10.3); Creatinine Clr Calc Pharmacy 81.4 ml/min; Est GFR (African American) 82.2 ml/min; Est GFR (Non-African American) 70.9 ml/min; Globulin 2.2 gm/dl (2.5-4.0); Magnesium 1.7 mg/dl (1.7-2.4); Total Protein 5.2 gm/dl (6.0-8.3)
[2023-07-13] MEDS: ENOXAPARIN INJ 40 MG/0.4 ML SYR SQ SCH (09:46)
[2023-07-13] MEDS: MULTIVITAMIN TAB PO SCH (09:47)
[2023-07-13] MEDS: CHOLECALCIFEROL 1,000 UNITS 25 MCG TAB PO SCH (09:47)
[2023-07-13] MEDS: VENLAFAXINE HCL 37.5 MG TAB PO SCH ×3 (09:47→21:13)
[2023-07-13] MEDS: LUBIPROSTONE 8 MCG CAP PO SCH ×2 (09:48→21:13)
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
[2023-07-13] MEDS: QUEtiapine FUMARATE 200 MG TAB PO SCH (21:13)
[2023-07-13] MEDS: BACLOFEN 20 MG TAB PO PRN (21:13)
[2023-07-14] MEDS: MoRPHine SULFATE IR 15 MG TAB (IMMEDIATE RELEASE) PO SCH (05:21)
[2023-07-14] MEDS: GABAPENTIN 800 MG TAB PO SCH ×2 (05:21→12:07)
[2023-07-14 05:50] LABS: Hematocrit (blood only) 32.3 % (37.0-47.0); Hemoglobin 10.6 g/dl (12.0-16.0); Mean Corpuscular Hemoglobin 27.9 pg (25.0-34.0); Mean Corpuscular Hgb Conc 32.8 g/dL (32.0-36.0); Mean Platelet Volume 11.1 fL (9.4-12.4); Platelet Count 359 K/uL (130-400); RDW Coefficient of Variation 16.4 % (11.5-14.5); RDW Standard Deviation 50.9 fL (36.4-46.3); White Blood Count 9.17 K/ul (4.8-10.8)
[2023-07-14 06:05] LABS: Albumin Globulin Ratio 1.3 (0.9-2); Albumin Level 2.8 gm/dl (3.4-5.0); BUN Creatinine Ratio 13.9 (10-20); Bilirubin,Total 0.3 mg/dl (0.2-1.0); Calcium 8.5 mg/dl (8.6-10.3); Creatinine Clr Calc Pharmacy 77.4 ml/min; Est GFR (African American) 77.3 ml/min; Est GFR (Non-African American) 66.7 ml/min; Globulin 2.2 gm/dl (2.5-4.0); Magnesium 1.7 mg/dl (1.7-2.4); Phosphorus 4.6 mg/dl (2.5-4.9)
[2023-07-14] MEDS: LACTATED RINGER'S 1,000 ML IV SCH (06:20)
[2023-07-14] MEDS: HYDROmorphone INJ 0.5 MG/0.5 ML SYR IV PRN ×3 (06:21→12:36)
[2023-07-14] MEDS: BACLOFEN 20 MG TAB PO PRN (08:10)
[2023-07-14] MEDS: MULTIVITAMIN TAB PO SCH (08:10)
[2023-07-14] MEDS: ENOXAPARIN INJ 40 MG/0.4 ML SYR SQ SCH (08:10)
[2023-07-14] MEDS: LUBIPROSTONE 8 MCG CAP PO SCH (08:11)
[2023-07-14] MEDS: CHOLECALCIFEROL 1,000 UNITS 25 MCG TAB PO SCH (08:11)
[2023-07-14] MEDS: VENLAFAXINE HCL 37.5 MG TAB PO SCH (08:12)
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
== END 2023-07-14 16:39 | disposition home or self-care (01) | DRG 558 ==
LOC: ED 14:05 → EDINP 23:14 → SUATTDRO 23:14 → 2N 07-11 01:03
DX: D72.829 Elevated white blood cell count, unspecified; G89.4 Chronic pain syndrome; Z88.5 Allergy status to narcotic agent; N17.9 Acute kidney failure, unspecified; Z83.3 Family history of diabetes mellitus; V89.2XXS Person injured in unspecified motor-vehicle accident, traffic, sequela; G89.29 Other chronic pain; Z86.711 Personal history of pulmonary embolism; G62.89 Other specified polyneuropathies; Z95.828 Presence of other vascular implants and grafts; F41.9 Anxiety disorder, unspecified; M79.604 Pain in right leg; M62.82 Rhabdomyolysis; R74.01 Elevation of levels of liver transaminase levels; F32.A Depression, unspecified; F17.210 Nicotine dependence, cigarettes, uncomplicated; R20.0 Anesthesia of skin; R26.2 Difficulty in walking, not elsewhere classified